=== PATIENT | female | born 1995 | race Caucasian/White ===

== ENCOUNTER 2020-04-01 07:38 | Emergency (ER) | payer SELFPAY ==
[2020-04-01 07:43] VITALS: BP 132/94; PULSE 84; RESP 17; TEMP 36.6; O2SAT 100; BMI 23.0
[2020-04-01 07:44] VITALS: BP 135/95; PULSE 78; RESP 17; O2SAT 100
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
[2020-04-01] MEDS: Ondansetron 4 MG/2 ML Vial IV ×2 (08:22→11:53)
[2020-04-01 08:23] VITALS: BP 114/78; PULSE 74; RESP 18; O2SAT 100
[2020-04-01] MEDS: 0.9% Normal Saline 1,000 ML 999 ML IV (08:24)
[2020-04-01] MEDS: fentaNYL 100 MCG/2 ML Ampul 50 MCG IV (08:25)
[2020-04-01 08:33] LABS: Basophil# 0.02 X10^3/uL; Basophil% 0.3 % (0-1); Eosinophil# 0.03 X10^3/uL; Eosinophils% 0.5 % (0-5); Hematocrit 38.5 % (37-47); Hemoglobin 12.7 g/dL (12.0-15.0); Lymphocyte % 25.5 % (19-41); Mean Corpuscular Hgb 28.6 pg (27.0-32.0); Mean Corpuscular Volume 86.7 fL (81-99); Monocyte# 0.33 X10^3/uL; Monocyte% 5.6 % (0-10); NRBC Flagged by Analyzer 0 % (0-5); Neutrophil # 3.99 X10^3/uL (2.7-7.7); Neutrophil % 67.8 % (47-70); Platelet Count 179 K/mm3 (150-450); RBC Distribution Width CV 12.4 % (11.6-14.6); RBC Distribution Width SD 38.8 fl (35.1-43.9); Red Blood Count 4.44 M/mm3 (4.2-5.4); White Blood Count 5.9 K/mm3 (4.4-11.0)
[2020-04-01 08:45] LABS: Internal QC Validated? YES +Cl - CLEAR BKGD; Pregnancy, Serum, hCG Quali. NEGATIVE Negative
[2020-04-01 08:46] LABS: International Normalized Ratio 1.1; Prothrombin Time (Protime)PT. 13.5 SECONDS (11.7-14.9)
[2020-04-01 08:47] LABS: Partial Thromboplast Time 27.9 Seconds (24.1-36.2)
[2020-04-01 08:50] LABS: AST(SGOT) 18 U/L (15-37); Alanine Aminotransfer ALT/SGPT 21 U/L (13-56); Albumin, Serum 3.8 g/dL (3.2-5.0); Alkaline Phosphatase 70 U/L (45-117); Anion Gap 6 (5-15); BUN 15 mg/dL (7-18); BUN/Creat Ratio 17.8 RATIO (10-20); Calcium,Total 8.9 mg/dL (8.5-10.1); Chloride 107 mmol/L (98-107); Creatinine, Serum 0.84 mg/dL (0.55-1.02); EST Glomerular Filtration Rate 87 mL/min (>60); Est Glom Filt Rate - Afr Amer 105 mL/min (>60); Estimated Creatinine Clearance 84.69 ml/min; Globulin 3.9 g/dL (2.2-4.2); Glucose 92 mg/dL (74-106); Potassium 4.1 mmol/L (3.5-5.1); Protein, Total 7.7 g/dL (6.4-8.2); Sodium Level 138 mmol/L (136-145)
[2020-04-01 09:03] LABS: Alcohol, Blood (Medical)-Serum < 3.0 mg/dL
[2020-04-01] MEDS: Morphine 4 MG/ML Syringe IV ×2 (09:44→11:53)
[2020-04-01 10:35] VITALS: BP 96/56; PULSE 91; RESP 19; O2SAT 96
[2020-04-01 11:09] LABS: Bacteria 0 SEEN /hpf (None Seen); Mucous, Urine 0 SEEN /hpf (<or=2+)
[2020-04-01 11:13] LABS: Color, Urine Straw (Yellow); Glucose, Dipstick Normal (Normal); Ketone-Dipstick Negative (Negative); Leukocyte Esterase-Dipstick Negative /ul (Negative); Nitrite-Dipstick Negative (Negative); Occult Blood-Urine Negative /ul (Negative); Protein-Dipstick Negative (Negative); Urine Bilirubin Dipstick Negative (Negative); Urine Clarity Clear (Clear); Urine Urobilinogen Normal (Normal)
[2020-04-01 11:20] LABS: Red Blood Cells-Urine 0-5 SEEN /hpf (0-5); Squamous Epithelial Cells - UA 0-5 SEEN /hpf (5-10); White Blood Cells 0-5 SEEN /hpf (0-5)
[2020-04-01 11:22] LABS: Amphetamine Urine VISTA NEGATIVE (<1000 ng/mL); Barbiturate Urine VISTA NEGATIVE (< 200 ng/mL); Benzodiazepine Urine VISTA NEGATIVE (< 200 ng/mL); Cocaine Urine VISTA NEGATIVE (< 300 ng/mL); Ecstacy Urine VISTA NEGATIVE (< 500 ng/mL); Methadone Urine VISTA NEGATIVE (< 300 ng/mL); PCP Urine VISTA NEGATIVE (< 25 ng/mL); THC Urine VISTA NEGATIVE (< 50 ng/mL); Vista UDS pH Range 5
[2020-04-01 11:25] VITALS: BP 96/66; PULSE 75; RESP 14; TEMP 36.6; O2SAT 98
--- NOTE | 2020-04-01 11:58 | ED.RN ---
REPORT GIVEN TO [facility], PATIENT STATUS UNCHANGED AT THIS TIME. CARE AND REPORT TO THEM.
== END 2020-04-01 12:08 | disposition short-term general hospital (02) ==
PROVIDERS: Emergency Provider Emergency Medicine
DX: S01.511A Laceration without foreign body of lip, initial encounter (principal); M54.2 Cervicalgia; M54.9 Dorsalgia, unspecified; V43.52XA Car driver injured in collision with other type car in traffic accident, initial encounter
CPT/HCPCS: 12011; 70450; 70486; 71260; 72125; 72128; 72131; 74177; 80048; 80076; 80307; 80320; 81001; 84703; 85025; 85610; 85730; 86850; 86900; 86901; 96361; 96374; 96375; 96376; 99285; J7030; Q9967; A4216; G0480; J2405

== ENCOUNTER 2024-12-04 09:42 | Emergency (ER) | payer OTHER, SELFPAY ==
[2024-12-04 09:44] VITALS: BP 122/79; PULSE 87; RESP 14; TEMP 36.5; O2SAT 100; BMI 24.5
--- NOTE | 2024-12-04 10:03 | EX.ED.DYSGE1 ---
HPI History of Present Illness Chief Complaint: Nausea/Vomiting Narrative Narrative: Patient is a 29-year-old female G2, P1 who presents to the emergency department the chief complaint of nausea vomiting not tolerating oral intake. Patient states that since Saturday she has been unable to keep anything down and states that she is urinating approximately once a day. Patient states that she is currently 6 weeks called her [employer] office and they advised her to come here for the valuation management. She states that she follows with Dr. Blair [facility]. States that she has not had a confirmed medical test.. Patient denies any recent sick contacts. [facility] Medical History (Updated 12/04/24 @ 13:[address] Arvin Stafford, DO) Vitamin deficiency Thyroid disease Hormone deficiency Bone fracture Back problem Depression Anxiety Medical History no medical history Home Medications ?Medication ?Instructions ?Recorded ?Last Taken ?Type NK 09/24/17 Unknown History ondansetron 4 mg disintegrating 4 mg PO Q6H PRN nausea and 12/04/24 Unknown Rx tablet vomiting #20 tabs Allergy/AdvReac Type Severity Reaction Status Date / Time No Known Allergies Allergy Verified 12/04/24 09:43 Family History Unknown Arthritis Cancer Diabetes Heart disease Hypertension High cholesterol Hormone Problems Hyperthyroidism Hypothyroid Kidney disease Thyroid cancer Family History no significant family his Surgical History no surgical history Social History Smoking Status: Never smoker alcohol intake: never substance use type: does not use ROS ROS ED ROS Narrative Constitutional: Denies fevers, chills, headaches, lightness, dizziness Eyes: Denies change in vision double and blurry vision Cardiovascular: Denies chest pain or palpitations Respiratory: Denies coughing wheezing shortness of breath Abdomen: Complains of nausea vomiting as noted above denies abdominal pain diarrhea : Denies painful urination, hematuria, polyuria, denies vaginal discharge Neurological: Denies numbness, discontinuing Musculoskeletal: Denies back pain Skin: Denies rashes or lesions EXAM Physical Exam Narrative Exam Narrative: General: Patient lying in bed rest comfortably did not appear to be in acute distress Head: Atraumatic, normocephalic Eyes: PERRL bilateral, EOMI bilateral, no conjunctival injection noted Neck: Soft, supple, trach midline Cardiovascular: Regular rate and rhythm no murmurs gallops rubs noted Respiratory: Clear to auscultation bilaterally Abdomen: Soft, nondistended, nontender to palpation Extremities: +5/5 strength noted in the bilateral upper and lower extremities, radial pulses +2/4 in the bilateral extremities, no pedal edema exam Neurological: Patient following commands knew that she was at [facility] year is 2024 Skin: Warm, dry, intact no rashes or lesions noted Const Vital Signs: 12/04/24 09:44 12/04/24 12:03 Temperature 97.7 F L Temperature Source Oral Pulse Rate 87 89 Respiratory Rate 14 18 Blood Pressure 122/79 H 126/78 H Blood Pressure Mean 93 94 Pulse Ox 100 98 Oxygen Delivery Method Room Air Room Air MDM MDM MDM Narrative Medical decision making narrative: Patient is a 29-year-old female who presents to the emergency department chief complaint of nausea vomiting the setting of approximately 6 weeks . On the differential diagnose includes Melamin to nausea and vomiting, , COVID, flu. Once workup is obtained reviewed she will be reevaluated. Patient be given IV fluids and Reglan. Patient's urinalysis reviewed and showed 25 leukocyte esterase 0-5 white cells with no bacteria noted, test was negative. I went back in and discussed with the patient and she states that she took 2 at home test that were both positive days apart. She states that she still has not had her period will add on a serum test. This was added on was noted be positive. Patient tested negative for COVID flu RSV. Patient is feeling better she like to go home at this point time. Patient will be given Zofran ODT and will be advised to use this as needed for nausea and vomiting. She states that she already has a appointment scheduled with her [employer] and she is advised to keep this appointment she was advised to get on vitamins as soon as possible. She is encouraged return with worsening symptoms and concerns. She is agreeable this plan as well as significant other bedside all questions were answered she is discharged home in stable condition. Lab Data Labs: Laboratory Results - last 24 hr 12/04/24 12/04/24 11:37 12:27 Serum , Qual POSITIVE Urine Color Yellow Urine Clarity Clear Urine pH 6.0 Ur Specific Adams 1.025 Urine Protein 30 H Urine Glucose (UA) Normal Urine Ketones 150 A* Urine Occult Blood 10 H Urine Nitrite Negative Urine Bilirubin Negative Urine Urobilinogen Normal Ur Leukocyte Esterase 25 H Urine RBC 0-5 SEEN Urine WBC 0-5 SEEN Ur Squamous Epith Cells 5-10 SEEN Urine Bacteria 0 SEEN Urine Mucus 1+ Urine Test Negative Discharge Plan Triage Chief Complaint: Nausea/Vomiting ED Provider: Arvin Stafford Dx/Rx/DC Orders Clinical Impression: Currently , Nausea & vomiting Instructions: 1st Trimester Prescriptions: New ondansetron 4 mg tablet,disintegrating 4 mg PO Q6H PRN (Reason: nausea and vomiting) Qty: 20 0RF No Action NK Primary Care Provider: Care Physician,No Primary Referrals: Care Physician,No Primary [Primary Care Provider] - Activity Restrictions/Additional Instructions: Your serum test was positive. The emergency department start prenatals soon as possible. Use the nausea medication sent to your pharmacy as needed. Return for worsening symptoms or concerns. He tested negative for COVID flu and RSV. Print Language: Georgian Disposition Disposition: Home, Self Care
[2024-12-04] MEDS: 0.9% Normal Saline (1000mL) 1,000 ML 999 ML IV ×2 (10:15→11:36)
[2024-12-04] MEDS: Metoclopramide 10 MG/2 ML Vial IV (10:15)
[2024-12-04 11:45] LABS: Bacteria 0 SEEN /hpf (None Seen)
[2024-12-04 11:48] LABS: Color, Urine Yellow (Yellow); Glucose, Dipstick Normal (Normal); Leukocyte Esterase-Dipstick 25 /ul (Negative); Nitrite-Dipstick Negative (Negative); Occult Blood-Urine 10 /ul (Negative); Protein-Dipstick 30 mg/dl (Negative); Specific Gravity, Urine 1.025 (1.002-1.030); Urine Bilirubin Dipstick Negative (Negative); Urine Clarity Clear (Clear); Urine Urobilinogen Normal (Normal)
[2024-12-04 11:50] LABS: Ketone-Dipstick 150 mg/dl (Negative)
[2024-12-04 11:57] LABS: Squamous Epithelial Cells - UA 5-10 SEEN /hpf (5-10); White Blood Cells 0-5 SEEN /hpf (0-5)
[2024-12-04 11:58] LABS: Red Blood Cells-Urine 0-5 SEEN /hpf (0-5)
[2024-12-04 11:59] LABS: Mucous, Urine 1+ /hpf (<or=2+)
[2024-12-04 12:01] LABS: Internal QC Validated? YES +Cl - CLEAR BKGD; Pregnancy, Urine Negative Negative
[2024-12-04 12:03] VITALS: BP 126/78; PULSE 89; RESP 18; O2SAT 98
[2024-12-04] MEDS: Ondansetron 4 MG/2 ML Vial IV (12:36)
[2024-12-04 13:05] LABS: Internal QC Validated? YES +Cl - CLEAR BKGD
--- NOTE | 2024-12-04 13:05 | CM.ED ---
Social work Reason for referral: no PCP/self-pay Referral source: case find This SW identified patient's lack of PCP and need for resources. This SW entered patient's room, introducing self and role at [facility]. Patient's significant other, Delio, bedside and permission given to speak in front of Delio. Patient confirmed not having a PCP and accepted resources of [facility] Provider Directory and Arbaella Davis information. Patient confirmed not having insurance currently either, though patient states patient is in the process of obtaining insurance. Patient reportedly is waiting on a Medicaid denial letter to provide to the insurance provider since the open enrollment period is over. Patient denied needing further resources at this time. Regina Spring, [employer], [employer]
[2024-12-04 13:06] LABS: Pregnancy, Serum, hCG Quali. POSITIVE Negative
--- NOTE | 2024-12-04 13:07 | ED.RN ---
Positive serum called by lab. Dr. Stafford notified
[2024-12-04 13:28] VITALS: BP 126/78; PULSE 89; RESP 18; TEMP 36.5; O2SAT 98
== END 2024-12-04 13:40 | disposition home or self-care (01) ==
PROVIDERS: Emergency Provider Emergency Medicine; Visit Provider Emergency Medicine
DX: O21.9 Vomiting of pregnancy, unspecified (principal); Z3A.01 Less than 8 weeks gestation of pregnancy
CPT/HCPCS: 81001; 81025; 84703; 87631; 96361; 96374; 96375; 99283; A4216; J2405

== ENCOUNTER 2025-07-26 07:32 | Inpatient (IN) | payer MEDICAID, SELFPAY ==
[2025-07-26] VITALS (60 sets, daily range): BP systolic 70–158; BP diastolic 35–86; PULSE 86–202; RESP 16–20; TEMP 36.1–37.2; O2SAT 78–100; BMI 30.9
--- OUTSIDE RECORDS SUMMARY | 2025-07-26 07:19 | XMS RPT_ITS | CCD ---
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 [place] WBC (Bld) [#/Vol] 14.95 10*3/uL High 3.70-11.00 [facility] Comment on above: Order Comment: Speci men Type: BLOOD SPECIMENOrdering Facility: [facility] Address: [address] [place] [address] Performed By: #### 5 7021-8 ####[facility] LABCLIA [id number] [place] [address] [place] Examination level ultrasound on 06-02-2025 Radiology Study observation (narrative) [facility] CBC W Auto Differential pane l (Bld)on 05-06-2025 Basophils (Bld) [#/Vol] 0.04 10*3/uL Normal <0.11 [facility] Comment on above: Order Comment: Speci men Type: BLOOD SPECIMENOrdering Facility: [facility] Address: [address] [place] [address] Performed By: #### 5 7021-8 ####[facility]IA [id number] [place] [address] [place] Basophils/100 WBC (Bld) 0.3 % Normal [facility] Comment on above: Order Comment: Speci men Type: BLOOD SPECIMENOrdering Facility: [facility] Address: [address] [place] [address] Performed By: #### 5 7021-8 ####[facility] [id number] [place] [address] [place] Differential cell count method Nom (Bld) Auto Normal [facility] Comment on above: Order Comment: Speci men Type: BLOOD SPECIMENOrdering Facility: [facility] Address: [address] [place] [address] Performed By: #### 5 7021-8 ####[facility] MILLWNCLIA [id number] [place] [address] [place] Eosinophils (Bld) [#/Vol] 0.06 10*3/uL Normal <0.46 [facility] Comment on above: Order Comment: Speci men Type: BLOOD SPECIMENOrdering Facility: [facility] Address: [address] [place] [address] Performed By: #### 5 7021-8 ####[facility] [id number] [place] [address] [place] Eosinophils/100 WBC (Bld) 0.4 % Normal [facility] Comment on above: Order Comment: Speci men Type: BLOOD SPECIMENOrdering Facility: [facility] Address: [address] [place] [address] Performed By: #### 5 7021-8 ####[facility] [id number] [place] [address] [place] Erythrocyte distribution width (RBC) [Ratio] 12.9 % Normal 11.5-15.0 [facility] Comment on above: Order Comment: Speci men Type: BLOOD SPECIMENOrdering Facility: [facility] Address: [address] [place] [address] Performed By: #### 5 7021-8 ####[facility]ITALNCLIA [id number] [place] [address] [place] Hematocrit (Bld) [Volume fraction] 30.4 % Low 36.0-46.0 [facility] Comment on above: Order Comment: Speci men Type: BLOOD SPECIMENOrdering Facility: [facility] Address: [address] [place] [address] Performed By: #### 5 7021-8 ####[facility]ITALNCLIA [id number] [place] [address] [place] Hemoglobin (Bld) [Mass/Vol] 9.8 g/dL Low 11.5-15.5 [facility] Comment on above: Order Comment: Speci men Type: BLOOD SPECIMENOrdering Facility: [facility] Address: [address] [place] [address] Performed By: #### 5 7021-8 ####[facility]ITALNCLI [id number] [place] [address] [place] Immature granulocytes (Bld) [#/Vol] 0.20 10*3/uL High <0.10 [facility] Comment on above: Order Comment: Speci men Type: BLOOD SPECIMENOrdering Facility: [facility] Address: [address] [place] [address] Performed By: #### 5 7021-8 ####[facility] JEAN MARIEABIGAIL [id number] [place] [address] [place] Immature granulocytes/100 WBC (Bld) 1.4 % Normal [facility] Comment on above: Order Comment: Speci men Type: BLOOD SPECIMENOrdering Facility: [facility] Address: [address] [place] [address] Performed By: #### 5 7021-8 ####[facility] [id number] [place] [address] [place] Lymphocytes (Bld) [#/Vol] 1.61 10*3/uL Normal 1.00-4.00 [facility] Comment on above: Order Comment: Speci men Type: BLOOD SPECIMENOrdering Facility: [facility] Address: [address] [place] [address] Performed By: #### 5 7021-8 ####[facility] [id number] [place] [address] [place] Lymphocytes/100 WBC (Bld) 11.3 % Normal [facility] Comment on above: Order Comment: Speci men Type: BLOOD SPECIMENOrdering Facility: [facility] Address: [address] [place] [address] Performed By: #### 5 7021-8 ####[facility]ALLI [id number] [place] [address] [place] MCH (RBC) [Entitic mass] 27.0 pg Normal 26.0-34.0 [facility] Comment on above: Order Comment: Speci men Type: BLOOD SPECIMENOrdering Facility: [facility] Address: [address] [place] [address] Performed By: #### 5 7021-8 ####[facility]ITALNCLIA [id number] [place] [address] [place] MCHC (RBC) [Mass/Vol] 32.2 g/dL Normal 30.5-36.0 [facility] Comment on above: Order Comment: Speci men Type: BLOOD SPECIMENOrdering Facility: [facility] Address: [address] [place] [address] Performed By: #### 5 7021-8 ####[facility] [id number] [place] [address] [place] MCV (RBC) [Entitic vol] 83.7 fL Normal 80.0-100.0 [facility] Comment on above: Order Comment: Speci men Type: BLOOD SPECIMENOrdering Facility: [facility] Address: [address] [place] [address] Performed By: #### 5 7021-8 ####[facility] [id number] [place] [address] [place] Monocytes (Bld) [#/Vol] 0.82 10*3/uL Normal <0.87 [facility] Comment on above: Order Comment: Speci men Type: BLOOD SPECIMENOrdering Facility: [facility] Address: [address] [place] [address] Performed By: #### 5 7021-8 ####[facility] [id number] [place] [address] [place] Monocytes/100 WBC (Bld) 5.7 % Normal [facility] Comment on above: Order Comment: Speci men Type: BLOOD SPECIMENOrdering Facility: [facility] Address: [address] [place] [address] Performed By: #### 5 7021-8 ####[facility]ITALNCLIA [id number] [place] [address] [place] Neutrophils (Bld) [#/Vol] 11.56 10*3/uL High 1.45-7.50 [facility] Comment on above: Order Comment: Speci men Type: BLOOD SPECIMENOrdering Facility: [facility] Address: [address] [place] [address] Performed By: #### 5 7021-8 ####[facility] [id number] [place] [address] [place] Neutrophils/100 WBC (Bld) 80.9 % Normal [facility] Comment on above: Order Comment: Speci men Type: BLOOD SPECIMENOrdering Facility: [facility] Address: [address] [place] [address] Performed By: #### 5 7021-8 ####[facility] [id number] [place] [address] [place] Nucleated RBC (Bld) [#/Vol] 10*3/uL Normal <0.01 [facility] Comment on above: Order Comment: Speci men Type: BLOOD SPECIMENOrdering Facility: [facility] Address: [address] [place] [address] Performed By: #### 5 7021-8 ####[facility] [id number] [place] [address] [place] Nucleated RBC/100 WBC (Bld) [Ratio] 0.0 /100 WBC Normal [facility] Comment on above: Order Comment: Speci men Type: BLOOD SPECIMENOrdering Facility: [facility] Address: [address] [place] [address] Performed By: #### 5 7021-8 ####[facility] HOSPITALNCA [id number] [place] [address] [place] Platelet mean volume (Bld) [Entitic vol] 9.7 fL Normal 9.0-12.7 [facility] Comment on above: Order Comment: Speci men Type: BLOOD SPECIMENOrdering Facility: [facility] Address: [address] [place] [address] Performed By: #### 5 7021-8 ####[facility] JAVIDNCMATILDEA [id number] [place] [address] [place] Platelets (Bld) [#/Vol] 270 10*3/uL Normal 150-400 [facility] Comment on above: Order Comment: Speci men Type: BLOOD SPECIMENOrdering Facility: [facility] Address: [address] [place] [address] Performed By: #### 5 7021-8 ####[facility] JAVIDNCLIA [id number] [place] [address] [place] RBC (Bld) [#/Vol] 3.63 10*6/uL Low 3.90-5.20 [facility] Comment on above: Order Comment: Speci men Type: BLOOD SPECIMENOrdering Facility: [facility] Address: [address] [place] [address] Performed By: #### 5 7021-8 ####[facility] JEAN MARIEWESTBROOKNCMATILDEA [id number] [place] [address] [place] WBC (Bld) [#/Vol] 14.29 10*3/uL High 3.70-11.00 [facility] Comment on above: Order Comment: Speci men Type: BLOOD SPECIMENOrdering Facility: [facility] Address: [address] [place] [address] Performed By: #### 5 7021-8 ####[facility]ITALNCLIA [id number] [place] [address] [place] Ferritin SerPl-mCncon 2024 Ferritin [Mass/Vol] 9.7 ng/mL Low 14.7-205.1 [facility] Comment on above: Order Comment: Speci men Type: BLOOD SPECIMENOrdering Facility: [facility] Address: [address] [place], [place] [address] Performed By: #### 5 0190-8, 2275-4 ####[facility] LABCLIA [id number] [place] [address] [place] GESTATIONAL GLUCOSE SCREEN, 1-HOUR, 50 GRAM, NON-FASTINGon 05-06-2025 Glucose [Mass/Vol] 120 mg/dL Normal 74-134 [facility] Comment on above: Order Comment: Speci men Type: BLOOD SPECIMENOrdering Facility: [facility] Address: [address] [place] [address] Result Comment: [facility] Congress of Obstetricians and Gynecologists (Melissa/Elo) guidelines state a gestational diabetes mellitus positive screen is made, in women not previously diagnosed with overt diabetes, when the 1 hr plasma glucose level is equal to or above 140 mg/dL. The [facility] recommends a 135 mg/dL cutoff. Performed By: #### G LTGST ####[facility] [id number] [place] [address] [place] Iron and Iron binding capaci ty panelon 05-06-2025 Iron [Mass/Vol] 35 ug/dL Low 41-186 [facility] Comment on above: Order Comment: Speci men Type: BLOOD SPECIMENOrdering Facility: [facility] Address: [address] [place], [place] [address] Performed By: #### 5 0190-8, 2276-01 ####[facility] LABCLIA [id number] [place] [id number] [place] Iron binding capacity [Mass/Vol] >535 High 232-386 [facility] Comment on above: Order Comment: Speci men Type: BLOOD SPECIMENOrdering Facility: [facility] Address: [address] [place] [address] Performed By: #### 5 0190-8, 2276-01 ####[facility] LABCLIA [id number] [place] [address] [place] Iron/TIBC [Molar ratio] <6.5 Low 15.0-57.0 [facility] Comment on above: Order Comment: Speci men Type: BLOOD SPECIMENOrdering Facility: [facility] Address: [address] [place] [address] Performed By: #### 5 0190-8, 2276-4 ####[facility] LABGIFF[facility] [id number] [place] [address] [place] Reagin and Treponema pallidu m IgG and IgM [Interp]on 05-06-2025 T. pallidum IgG+IgM IA Ql (S) Non-Reactive Normal Nonreactive [facility] Comment on above: Order Comment: Speci men Type: BLOOD SPECIMENOrdering Facility: [facility] Address: [address] [place] [address] Performed By: #### 7 3752-8 ####[facility] [id number] [place] [address] [place] Reagin+T pallidum IgG+IgM Se rPl-Impon 05-06-2025 Reagin and Treponema pallidum IgG and IgM [Interp] Cannot exclude recent Treponemal infection if specimen collected within 7-10 days after appearance of suspect lesions or 2-3 weeks after an exposure. Clinical correlation is required. Normal [facility] Comment on above: Order Comment: Speci men Type: BLOOD SPECIMENOrdering Facility: [facility] Address: [address] [place] [address] Performed By: #### 7 3752-8 ####[facility] [id number] [place] [id number] [place] TSH SerPl-aCncon 05-06-2025 TSH Qn 1.910 m[IU]/L Normal 0.270-4.200 [facility] Comment on above: Order Comment: Speci men Type: BLOOD SPECIMENOrdering Facility: [facility] Address: [address] [place], [place] [address] [id number] Result Comment: If t he patient is , TSH reference range varies by gestational period: First Trimester (weeks 9-12): 0.180-2.990 mIU/L Second Trimester: 0.110-3.980 mIU/L Third Trimester: 0.480-4.710 mIU/L Raul Sahni et al. A Practical Approach for the Verifications and Determination of Site- and Trimester-Specific Reference Intervals for Thyroid Function tests in . Thyroid, 2019:29:3:412-420. Joe Abdi, et al. 2017 Guidelines of the [place] Thyroid Association for the Diagnosis and Management of Thyroid Disease during and the . Thyroid, 2017:27:3:315-389. Performed By: #### 3 016-3 ####[facility] LABCLIA [id number] [facility] [id number] [place] [address] [facility] 03-30-2025 CNPN Telephone (OBGYWM) HILARY HORTA ([id number]) 1995 F Date Time Provider Department 03/30/25 UZMA MILES OBKEVIN During your visit today, we recorded the following information about you: Kathy Pham 03/30/2025 12:21 PM Signed Patient calling in to give Dr. Miles an update about her amoxicillin dose she was give in urgent care. She was prescribed 500mg capsules 3 times daily. She wants to make sure this is okay for the baby. Please review and advise. Kathy Pham March 30, 2025 12:21 PM Delisa Saeed RN 03/30/2025 12:25 PM Signed Called and spoke with patient. Advised Amoxicillin is approved to take during . This was also addressed in phone note from yesterday. Delisa Saeed RN Allergies As of Date: 03/30/2025 (No Known Allergies) Date Reviewed: 01/29/2025 Reviewed by: Lucy Vargas MD - Fully Assessed Reason for Visit: Patient Update [1234] Prescriptions as of 03/30/2025 - ondansetron orally disintegrating (ZOFRAN ODT) 4 mg disintegrating tablet Take 1 tablet by mouth every 8 hours as needed for nausea/vomiting. - aspirin, enteric coated (ECOTRIN LOW STRENGTH) 81 mg EC tablet Take 1 tablet by mouth once daily. - VIT 10-IRON FUM-FOLIC ORAL Take by mouth. - doxylamine succinate (UNISOM, DOXYLAMINE, ORAL) Take by mouth. - pyridoxine HCl, vitamin B6, (PYRIDOXINE ORAL) Take by mouth. Problem List As Of Date 03/30/2025 Noted Resolved Rubella non-immune status [Z78.9] 08/15/2012 Chlamydia trachomatis infection of lower genito*08/18/2012 12/17/2024 Nausea/vomiting in [O21.9] 12/11/2024 Hypothyroidism affecting in first tri*12/17/2024 History of depression [Z87.59, Z86.5*12/17/2024 Constipation during in first trimeste*12/17/2024 Encounter Status:Closed by DELISA SAEED on 03/30/25 [facility] HILARY HORTA ([id number]) 1995 F Date Time Provider Department 03/29/25 ROBYN FORDE During your visit today, we recorded the following information about you: Delisa Saeed RN 03/29/2025 10:54 AM Signed 22w0d Patient states she visited the [facility] in [facility] for an insect bite this morning. She was advised by them to call our office. On her left thigh she has a bulls eye rash. She was feeling fatigue, night sweats, and migraine. Patient never saw a tick on her body. NOW clinic is treating her Lyme's disease with a low dose of Amoxicillin THREE TIMES A DAY x 2 weeks. Patient asking what the next steps are. Asking about blood work. Next OB visit is 04/08/25. KAIT Todd Jessica, APRN.CNM 03/29/2025 11:50 AM Signed Recommend management with primary care for follow up. Ok to continue treatment regimen. Can also refer to infectious disease if she desires. Thanks, Robyn Forde APRN.Lv Cruz RN 03/29/2025 12:23 PM Signed Pt notified. Pt states having active movement consistently-reviewed importance of doing kick counts, staying hydrated, monitoring for fevers, worsening rash/redness, worsening fatigue, worsening night sweats, or headaches/migraines not relieved by Tylenol 1,000mg every 6 hours PRN to contact our office/ PCP office immediately. Pt voiced understanding. Upon looking to see when Pt's next OB appt was-saw no upcoming appt, so called Pt back and Pt states she just got approved for an insurance and has a new card and needs to schedule an appointment. Transferred Pt to [facility] to get insurance information updated and to get OB appt scheduled. Lv Del Castillo RN Allergies As of Date: 03/29/2025 (No Known Allergies) Date Reviewed: 01/29/2025 Reviewed by: Lucy Vargas MD - Fully Assessed Reason for Visit: OB Lyme's Disease [Other] Prescriptions as of 03/29/2025 - ondansetron orally disintegrating (ZOFRAN ODT) 4 mg disintegrating tablet Take 1 tablet by mouth every 8 hours as needed for nausea/vomiting. - aspirin, enteric coated (ECOTRIN LOW STRENGTH) 81 mg EC tablet Take 1 tablet by mouth once daily. - VIT 10-IRON FUM-FOLIC ORAL Take by mouth. - doxylamine succinate (UNISOM, DOXYLAMINE, ORAL) Take by mouth. - pyridoxine HCl, vitamin B6, (PYRIDOXINE ORAL) Take by mouth. Problem List As Of Date 03/29/2025 Noted Resolved Rubella non-immune status [Z78.9] 08/15/2012 Chlamydia trachomatis infection of lower genito*08/18/2012 12/17/2024 Nausea/vomiting in [O21.9] 12/11/2024 Hypothyroidism affecting in first tri*12/17/2024 History of depression [Z87.59, Z86.5*12/17/2024 Constipation during in first trimeste*12/17/2024 Encounter Status:Closed by LV DEL CASTILLO on 03/29/25 [facility] Office Visit Reporton 2024 Office Visit Report [facility] [address] [place] [address] OFFICE VISIT Date of Service: 03/29/25 MR#: [id number] Acct: [id number] Patient: HILARY HORTA Rep #: [id number] : 1995 Provider: SADIE Millard Age/Sex: 29/F Location: [facility] Status: Signed Intake Vital Signs 12/04/24 09:44 03/29/25 09:59 Height 1.6 m 1.6 m Weight: 68.946 kg BMI 26.9 BP 109/73 Blood Pressure Location Lt brachial Position Sitting Pulse 94 Pulse Source Monitor Temp 98.4 F Temp Source Temporal Pulse Oximetry (%) 100 Oxygen Delivery Method room air Intake Visit Reasons: TICK BITE/INNER THIGH/L LEG Chief Complaint: tick bite rash Allergies No Known Allergies Allergy (Verified 03/29/25 10:00) Medications ???Medication ???Instructions ???Recorded ???Confirmed ???Type ondansetron 4 mg disintegrating 4 mg PO Q6H PRN nausea and 5 03/29/25 Rx tablet vomiting #20 tabs amoxicillin 500 mg capsule 500 mg PO TID 14 days #42 caps 03/29/25 Rx PFSH Medical History (Updated 03/29/25 @ 10:16 by Otoniel NOEL, PA) Vitamin deficiency Thyroid disease Hormone deficiency Bone fracture Back problem Depression Anxiety Family History Unknown Arthritis Cancer Diabetes Heart disease Hypertension High cholesterol Hormone Problems Hyperthyroidism Hypothyroid Kidney disease Thyroid cancer Social History Smoking Status: Never smoker alcohol intake: never substance use type: does not use HPI HPI Chief Complaint: tick bite rash Details: HILARY HORTA, is a 29 F who is currently 6 months who presents to the office today for tick bite rash. She first noticed this a few days ago. She never noticed a tick embedded in her skin. She however developed a bullseye lesion on her left inner thigh. Along with this she has headache fatigue and fever. She is worried about lyme disease. She has no joint pain. She has no other areas of bullseye lesions. ROS Const Constitutional: Positive for fever(s) and headache(s); No chills or fatigue ENT ENT: Positive for headache(s) Skin Skin: Positive for redness, lesions and itchy eyes Neuro Neurology: Positive for headache(s) Endo Endocrine: No fatigue Aller/Imm Allergy/Immunologic: Positive for itchy eyes Exam Const General: cooperative, healthy appearing, comfortable, no acute distress, well developed and well groomed Nutritional Appearance: average body habitus and well nourished Orientation: alert, awake and oriented x3 HENMT Head: normocephalic and atraumatic Resp Effort Inspection: normal respiratory effort, able to speak in complete sentences, symmetric chest movement and no cough Auscultation: Bilateral: Clear to Auscultation Cardio Rate: regular rate Rhythm: regular rhythm Heart Sounds: no murmurs Skin Other: bullseye lesion left inner thigh Coding Level of Care Code Off vis,new,level 3 Diagnoses Erythema migrans (Lyme disease) A69.20 Assessment and Plan Assessment and Plan (1) Erythema migrans (Lyme disease): Status: Chronic Plan: Bullseye lesion left inner thigh, with symptoms of headache, fever, and fatigue. complicated by 6 month . she never specifically noticed a tick embedded however with her presentation will initiate treatment for lyme. since she is we will avoid doxy. start amox 500 tid x 14 days per uptodate guidelines. no chronic medical issues/medication use Medications: New amoxicillin 500 mg PO TID 14 days 42 caps 0RF 03/29/25 1018 Date Otoniel Claire Signature: Date (if applicable) CC: Normal [facility] [place] Examination level ultrasound on 03-12-2025 Indication Standard anatomic survey Impression The patient is referred for a standard anatomic survey. - Single, live, intrauterine . - biometry is consistent with the established gestational age. - No malformations were visualized on a complete standard anatomic survey. - The amniotic fluid volume is normal amount. - The placenta is posterior, fundal. - The Transabdominal cervical length measures 42.5 mm with no evidence of funneling or other dynamic changes. - Not all structural malformations can be detected by ultrasound examination. Recommendations Additional follow-up as clinically indicated. Maternal Assessment Height 163 cm Height (ft) 5 ft Height (in) 4 in Physical Exam Initial weight (lb) 135 lb Initial BMI 23.17 kg/m Maternal assessment other: 2 Para 1 REMOTE READ Method Transabdominal ultrasound examination. View: Adequate visualization [place] . Number of fetuses: 1 Dating LMP on: 10/26/2024 GA by LMP 19 w + 4 d SELMA by LMP: 08/02/2025 GA by prior assessment 19 w + 4 d SELMA by prior assessment: 08/02/2025 Ultrasound examination on: 03/12/2025 GA by U/S based upon: AC, BPD, Femur, HC GA by U/S 21 w + 0 d SELMA by U/S: 07/23/2025 Assigned: based on stated SELMA, selected on 03/12/2025 Assigned GA 19 w + 4 d Assigned SELMA: 08/02/2025 General Evaluation Cardiac activity present. FHR 149 bpm. movements: present. Presentation: cephalic Placenta: Placental site: posterior, fundal Umbilical cord: Cord vessels: 3 vessel cord Amniotic fluid: Amount of AF: normal amount. MVP 6.2 cm Growth Overview Exam date GA BPD (mm) HC (mm) AC (mm) FL (mm) HL (mm) EFW (g) 03/12/2025 19w 4d 48.7 90% 184.2 84% 161.3 90% 34.5 94% 32.6 92% 392 98% Biometry Standard BPD 48.7 mm 20w 5d 90% Hadlock OFD 65.7 mm 20w 5d 99% Nicolaides HC 184.2 mm 20w 5d 84% Mouna Cerebellum tr 21.7 mm 20w 3d 91% Hill Nuchal fold 4.3 mm AC 161.3 mm 21w 2d 90% Hadlock Femur 34.5 mm 21w 0d 94% Mouna Humerus 32.6 mm 21w 0d 92% Mouna EFW 392 g 20w 6d 98% Hadlock EFW (lb) 0 lb EFW (oz) 14 oz EFW by: Hadlock (HC-AC-FL) Extended [employer]ender 6.3 mm CM 4.0 mm 21% Nicolaides Extremities / Bony Struc FL / HC 0.19 73% Hadlock Other Structures FHR 149 bpm Anatomy Cranium: normal Lateral ventricles: normal Choroid plexus: normal Midline falx: normal Cavum septi pellucidi: normal Cerebellum: normal Cisterna magna: normal Head / Neck Vermis: Normal but not required for a standard anatomy exam Neck: Normal but not required for a standard anatomy exam Nuchal fold: Normal but not required for a standard anatomy exam Lips: normal Profile: Normal but not required for a standard anatomy exam Nose: Normal but not required for a standard anatomy exam Face Maxilla: Normal but not required for a standard anatomy exam Mandible: Normal but not required for a standard anatomy exam Orbits: Normal but not required for a standard anatomy exam Lens: Normal but not required for a standard anatomy exam 4-chamber view: normal RVOT view: normal LVOT view: normal 3-vessel view: normal 1-jzvcof-pspkbkq view: normal Heart / Thorax Situs: situs solitus (normal) Aortic arch view: Normal but not required for a standard anatomy exam SVC: Normal but not required for a standard anatomy exam IVC: Normal but not required for a standard anatomy exam Cardiac axis: normal Rt lung: Normal but not required for a standard anatomy exam Lt lung: Normal but not required for a standard anatomy exam Diaphragm: normal Cord insertion: normal Stomach: normal Kidneys: normal Bladder: normal Genitals: normal Abdomen Abdom. wall: normal Cervical spine: normal Thoracic spine: normal Lumbar spine: normal Sacral spine: normal Arms: normal Legs: normal Rt upper arm: normal Rt forearm: normal Rt hand: normal Rt fingers: normal Lt upper arm: normal Lt forearm: normal Lt hand: normal Lt fingers: normal Rt upper leg: normal Rt lower leg: normal Rt foot: normal Lt upper leg: normal Lt lower leg: normal Lt foot: normal sex: male Wants to know sex: yes Maternal Structures Uterus / Cervix Uterus: Visualized Cervix: Visualized Approach: Transabdominal Cervical length 42.5 mm Other: Patient declined transvaginal ultrasound for cervical length. Ovaries / Tubes / Adnexa Rt ovary: Visualized Lt ovary: Visualized Performed By: Ananya Alvarez RDMS, RVT Read By: Gabbie Wilcox M.D. MATERNAL MEDICINE [facility] Radiology Study observation (narrative) [facility] CBC W Auto Differential pane l (Bld)on 01-05-2025 Basophils (Bld) [#/Vol] 0.04 10*3/uL Normal <0.11 [facility] Comment on above: Order Comment: Speci men Type: BLOOD SPECIMENOrdering Facility: [facility] Address: [address] [place] [address] Performed By: #### 5 7021-8 ####[facility] [id number] [place] [address] [place] Basophils/100 WBC (Bld) 0.5 % Normal [facility] Comment on above: Order Comment: Speci men Type: BLOOD SPECIMENOrdering Facility: [facility] Address: [address] [place] [address] Performed By: #### 5 7021-8 ####[facility] [id number] [place] [address] [place] Differential cell count method Nom (Bld) Auto Normal [facility] Comment on above: Order Comment: Speci men Type: BLOOD SPECIMENOrdering Facility: [facility] Address: [address] [place] [address] Performed By: #### 5 7021-8 ####[facility] MILLWNCLIA [id number] [place] [address] [place] Eosinophils (Bld) [#/Vol] 0.03 10*3/uL Normal <0.46 [facility] Comment on above: Order Comment: Speci men Type: BLOOD SPECIMENOrdering Facility: [facility] Address: [address] [place] [address] Performed By: #### 5 7021-8 ####[facility]ITALADDYLIA [id number] [place] [address] [place] Eosinophils/100 WBC (Bld) 0.4 % Normal [facility] Comment on above: Order Comment: Speci men Type: BLOOD SPECIMENOrdering Facility: [facility] Address: [address] [place] [address] Performed By: #### 5 7021-8 ####[facility] [id number] [place] [address] [place] Erythrocyte distribution width (RBC) [Ratio] 13.3 % Normal 11.5-15.0 [facility] Comment on above: Order Comment: Speci men Type: BLOOD SPECIMENOrdering Facility: [facility] Address: [address] [place] [address] Performed By: #### 5 7021-8 ####[facility] [id number] [place] [address] [place] Hematocrit (Bld) [Volume fraction] 37.5 % Normal 36.0-46.0 [facility] Comment on above: Order Comment: Speci men Type: BLOOD SPECIMENOrdering Facility: [facility] Address: [address] [place] [address] Performed By: #### 5 7021-8 ####[facility] H[facility]ITALNCLIA [id number] [place] [address] [place] Hemoglobin (Bld) [Mass/Vol] 12.5 g/dL Normal 11.5-15.5 [facility] Comment on above: Order Comment: Speci men Type: BLOOD SPECIMENOrdering Facility: [facility] Address: [address] [place] [address] Performed By: #### 5 7021-8 ####[facility] [id number] [place] [address] [place] Immature granulocytes (Bld) [#/Vol] 0.04 10*3/uL Normal <0.10 [facility] Comment on above: Order Comment: Speci men Type: BLOOD SPECIMENOrdering Facility: [facility] Address: [address] [place] [address] Performed By: #### 5 7021-8 ####[facility] [id number] [place] [address] [place] Immature granulocytes/100 WBC (Bld) 0.5 % Normal [facility] Comment on above: Order Comment: Speci men Type: BLOOD SPECIMENOrdering Facility: [facility] Address: [address] [place] [address] Performed By: #### 5 7021-8 ####[facility] [id number] [place] [address] [place] Lymphocytes (Bld) [#/Vol] 1.54 10*3/uL Normal 1.00-4.00 [facility] Comment on above: Order Comment: Speci men Type: BLOOD SPECIMENOrdering Facility: [facility] Address: [address] [place] [address] Performed By: #### 5 7021-8 ####[facility] [id number] [place] [address] [place] Lymphocytes/100 WBC (Bld) 19.2 % Normal [facility] Comment on above: Order Comment: Speci men Type: BLOOD SPECIMENOrdering Facility: [facility] Address: [address] [place] [address] Performed By: #### 5 7021-8 ####[facility] JEAN MARIEWESTBROOKANTELMO [id number] [address] MCH (RBC) [Entitic mass] 27.7 pg Normal 26.0-34.0 [facility] Comment on above: Order Comment: Speci men Type: BLOOD SPECIMENOrdering Facility: [facility] Address: [address] [place] [address] Performed By: #### 5 7021-8 ####[facility] [id number] [address] [place] [facility] MCHC (RBC) [Mass/Vol] 33.3 g/dL Normal 30.5-36.0 [facility] Comment on above: Order Comment: Speci men Type: BLOOD SPECIMENOrdering Facility: [facility] Address: [address] [place] [address] Performed By: #### 5 7021-8 ####[facility] [id number] [address] [place] [facility] MCV (RBC) [Entitic vol] 83.0 fL Normal 80.0-100.0 [facility] Comment on above: Order Comment: Speci men Type: BLOOD SPECIMENOrdering Facility: [facility] Address: [address] [place] [address] Performed By: #### 5 7021-8 ####[facility] [id number] [place] [address] [place] [facility] [place] Monocytes (Bld) [#/Vol] 0.42 10*3/uL Normal <0.87 [facility] Comment on above: Order Comment: Speci men Type: BLOOD SPECIMENOrdering Facility: [facility] Address: [address] [place] [address] Performed By: #### 5 7021-8 ####[facility] PENSACOLAWNCLIA [id number] [place] [address] [place] Monocytes/100 WBC (Bld) 5.2 % Normal [facility] Comment on above: Order Comment: Speci men Type: BLOOD SPECIMENOrdering Facility: [facility] Address: [address] [place] [address] Performed By: #### 5 7021-8 ####[facility] [id number] [place] [address] [place] Neutrophils (Bld) [#/Vol] 5.94 10*3/uL Normal 1.45-7.50 [facility] Comment on above: Order Comment: Speci men Type: BLOOD SPECIMENOrdering Facility: [facility] Address: [address] [place] [address] Performed By: #### 5 7021-8 ####[facility] [id number] [place] [address] [place] Neutrophils/100 WBC (Bld) 74.2 % Normal [facility] Comment on above: Order Comment: Speci men Type: BLOOD SPECIMENOrdering Facility: [facility] Address: [address] [place] [address] Performed By: #### 5 7021-8 ####[facility] [id number] [place] [address] [place] Nucleated RBC (Bld) [#/Vol] 10*3/uL Normal <0.01 [facility] Comment on above: Order Comment: Speci men Type: BLOOD SPECIMENOrdering Facility: [facility] Address: [address] [place] [address] Performed By: #### 5 7021-8 ####[facility]ITALNCLIA [id number] [place] [address] [place] Nucleated RBC/100 WBC (Bld) [Ratio] 0.0 /100 WBC Normal [facility] Comment on above: Order Comment: Speci men Type: BLOOD SPECIMENOrdering Facility: [facility] Address: [address] [place] [address] Performed By: #### 5 7021-8 ####[facility] [id number] [place] [address] [place] Platelet mean volume (Bld) [Entitic vol] 10.4 fL Normal 9.0-12.7 [facility] Comment on above: Order Comment: Speci men Type: BLOOD SPECIMENOrdering Facility: [facility] Address: [address] [place] [address] Performed By: #### 5 7021-8 ####[facility] [id number] [place] [address] [place] Platelets (Bld) [#/Vol] 235 10*3/uL Normal 150-400 [facility] Comment on above: Order Comment: Speci men Type: BLOOD SPECIMENOrdering Facility: [facility] Address: [address] [place] [address] Performed By: #### 5 7021-8 ####[facility] [id number] [place] [address] [place] RBC (Bld) [#/Vol] 4.52 10*6/uL Normal 3.90-5.20 [facility] Comment on above: Order Comment: Speci men Type: BLOOD SPECIMENOrdering Facility: [facility] Address: [address] [place] [address] Performed By: #### 5 7021-8 ####[facility] HOS[facility]ITALNCLI [id number] [place] [address] [place] WBC (Bld) [#/Vol] 8.01 10*3/uL Normal 3.70-11.00 [facility] Comment on above: Order Comment: Speci men Type: BLOOD SPECIMENOrdering Facility: [facility] Address: [address] [place] [address] Performed By: #### 5 7021-8 ####[facility] NAMRATA CALDERON [id number] [place] [address] [place] HBV surface Ag Ser Qlon 04-0 HBV surface Ag Ql (S) Negative Normal Negative [facility] Comment on above: Order Comment: Speci men Type: BLOOD SPECIMENOrdering Facility: [facility] Address: [address] [place] [address] Performed By: #### 3 1201-7, 5195-3, 62939-5 ####[facility] LABCLIA [id number] [place] [address] [place] HCV Ab Ser Qlon 01-05-2025 HCV Ab Ql (S) Negative Normal Negative [facility] Comment on above: Order Comment: Speci men Type: BLOOD SPECIMENOrdering Facility: [facility] Address: [address] [place] [address] Result Comment: The result suggests no evidence of infection with Hepatitis C virus. Should recent infection be suspected, repeat testing may be considered 4-6 weeks after this draw. Performed By: #### 1 6128-1 ####[facility] LABCLIA [id number] [place] [address] [place] HIV 1+2 Ab IA Qlon HIV 1 and 2 Ab IA.rapid Nom (S/P/Bld) Normal [facility] Comment on above: Order Comment: Speci men Type: BLOOD SPECIMENOrdering Facility: [facility] Address: [address] [place] [address] Result Comment: Test not indicated. Performed By: #### 3 1201-7, 5195-3, 58146-1 ####[facility] LABCLIA [id number] [place] [address] [place] HIV 1+2 Ab+HIV1 p24 Ag IA Ql Non-Reactive Normal Nonreactive [facility] Comment on above: Order Comment: Speci men Type: BLOOD SPECIMENOrdering Facility: [facility] Address: [address] [place] [address] Performed By: #### 3 1201-7, 5195-3, 19465-2 ####[facility] LABCLIA [id number] [place] [address] [place] HIV immunoassay testing algorithm interpretation (S/P/Bld) [Interp] Normal [facility] Comment on above: Order Comment: Speci men Type: BLOOD SPECIMENOrdering Facility: [facility] Address: [address] [place] [address] Result Comment: No e vidence of HIV-1 or HIV-2 infection. Should recent infection be suspected, repeat testing may be considered 2-3 weeks after this draw. [place] Rev. Code 3701.243(E): This information has been disclosed to you from confidential records protected from disclosure by state law. ???You shall make no further disclosure of this information without the specific, written, and informed release of the individual to whom it pertains or as otherwise permitted by state law. A general authorization for the release of medical or other information is not sufficient for the purpose of the release of HIV test results or diagnoses. Performed By: #### 3 1201-7, 5195-3, 76873-3 ####[facility] LABCLIA [id number] [place] [address] [place] HbA1c (Bld)on 01-05-2025 Average glucose Estimated from glycated hemoglobin (Bld) [Mass/Vol] 100 mg/dL Normal [facility] Comment on above: Order Comment: Speci men Type: BLOOD SPECIMENOrdering Facility: [facility] Address: [address] [place] [address] Result Comment: eAG: (Estimated average glucose) is a calculated value from HgbA1c and is data entry representative of the average blood glucose level in the last 2-3 month period. Performed By: #### 5 5454-3 ####[facility] LABIA [id number] [place] [address] [place] HbA1c (Bld) [Mass fraction] 5.1 % Normal 4.3-5.6 [facility] Comment on above: Order Comment: Andres elina Type: BLOOD SPECIMENOrdering Facility: [facility] Address: [address] [place] [address] Result Comment: [place] Diabetes Association guidelines indicate that patients with HgbA1c in the range 5.7-6.4% are at increased risk for development of diabetes, and intervention by lifestyle modification may be beneficial. HgbA1c greater or equal to 6.5% is considered diagnostic of diabetes. Performed By: #### 5 5454-3 ####[facility] LABIA [id number] [address] [place] RUBELLA IGG ANTIBODYon 01-05 RUBELLA IGG AB, QUAL Positive Normal Positive [facility] Comment on above: Order Comment: Andres [facility] Type: BLOOD SPECIMENOrdering Facility: [facility] Address: [address] [place] [address] Result Comment: The result suggests recent or past exposure to Rubella virus or history of Rubella vaccination. Positive result may also be seen due to presence of passively-transferred antibodies. Please correlate with patient's history. Performed By: #### R UBIGG ####[facility]ITAL[facility] [id number] [place] [address] [place] Reagin and Treponema pallidu m IgG and IgM [Interp]on 01-05-2025 T. pallidum IgG+IgM IA Ql (S) Non-Reactive Normal Nonreactive [facility] Comment on above: Order Comment: Andres [facility] Type: BLOOD SPECIMENOrdering Facility: [facility] Address: [address] [place] [address] Performed By: #### 3 1201-7, 5195-3, 18781-0 ####[facility] LABIA [id number] [place] [address] [place] Reagin+T pallidum IgG+IgM Se rPl-Impon 01-05-2025 Reagin and Treponema pallidum IgG and IgM [Interp] Cannot exclude recent Treponemal infection if specimen collected within 7-10 days after appearance of suspect lesions or 2-3 weeks after an exposure. Clinical correlation is required. Normal [facility] Comment on above: Order Comment: Speci men Type: BLOOD SPECIMENOrdering Facility: [facility] Address: [address] [place] [address] Performed By: #### 3 1201-7, 5195-3, 89356-1 ####[facility] [id number] [place] [address] [place] T4 Free SerPl-mCncon 025 Free T4 [Mass/Vol] 1.2 ng/dL Normal 0.9-1.7 [facility] Comment on above: Order Comment: Speci men Type: BLOOD SPECIMENOrdering Facility: [facility] Address: [address] [place] [address] Performed By: #### 3 024-7, 3016-3 ####[facility] [id number] [place] [address] [place] TSH SerPl-aCncon 01-05-2025 TSH Qn 2.490 m[IU]/L Normal 0.270-4.200 [facility] Comment on above: Order Comment: Speci men Type: BLOOD SPECIMENOrdering Facility: [facility] Address: [address] [place] [address] Result Comment: If t he patient is , TSH reference range varies by gestational period: First Trimester (weeks 9-12): 0.180-2.990 mIU/L Second Trimester: 0.110-3.980 mIU/L Third Trimester: 0.480-4.710 mIU/L Raul Sahni et al. A Practical Approach for the Verifications and Determination of Site- and Trimester-Specific Reference Intervals for Thyroid Function tests in . Thyroid, 2019:29:3:412-420. Joe E, et al. 2017 Guidelines of the [place] Thyroid Association for the Diagnosis and Management of Thyroid Disease during and the . Thyroid, 2017:27:3:315-389. Performed By: #### 3 024-7, 3016-3 ####[facility] LABCLIA [id number] [place] [address] [place] TYPE + SCREEN PRENATALon ABO O Normal [facility] Comment on above: Order Comment: Speci men Type: BLOOD SPECIMENOrdering Facility: [facility] Address: [address] [place] [address] Performed By: #### T SPN ####[facility] BLOOD BANKCLIA [id number] [place] [address] [place] Rh Nom (Bld) Positive Normal [facility] Comment on above: Order Comment: Speci men Type: BLOOD SPECIMENOrdering Facility: [facility] Address: [address] [place] [address] Performed By: #### T SPN ####[facility] BLOOD BANKCLIA [id number] [place] [address] [place] TYPE AND SCREEN EXPIRATION 01/08/2025 23:59 Normal [facility] Comment on above: Order Comment: Speci men Type: BLOOD SPECIMENOrdering Facility: [facility] Address: [address] [place] [address] Performed By: #### T SPN ####[facility] BLOOD BANKCLIA [id number] [place] [address] [place] Bacteria Ur Culton 5 Bacteria identified Cx Nom (U) ORGANISM ID: 1 10,000 -<50,000 CFU/ml Mixed microbiota Insignificant colony count. No further workup. Normal [facility] Comment on above: Performed By: #### 6 30-4 ####[facility] LABCLIA [id number] [address] [place] [address] [place] C. trachomatis+N. gonorrhoea e DNA KYLIE+probe Ql (Unsp spec)on 12-17-2024 C. trachomatis rRNA KYLIE+probe Ql (Unsp spec) Not detected Normal Not detected [facility] Comment on above: Order Comment: Speci men Type: SWABOrdering Facility: [facility] Address: [address] [place] [address] Performed By: #### T RVAMP, 86936-9 ####[facility] LABCLIA [id number] [address] [place] N. gonorrhoeae rRNA KYLIE+probe Ql (Unsp spec) Not detected Normal Not detected [facility] Comment on above: Order Comment: Speci men Type: SWABOrdering Facility: [facility] Address: [address] [place] [address] Performed By: #### T RVAMP, 57888-6 ####[facility] LABIA [id number] [address] [place] HIGH RISK HUMAN PAPILLOMA DEBBIE (HPV), PCR FOR DETECTION AND GENOTYPINGon 12-17-2024 HPV 16 Ag Ql (Unsp spec) Not detected Normal Not detected [facility] Comment on above: Order Comment: Speci men Type: FLUID SPECIMENOrdering Facility: [facility] Address: [address] [place] [address] Performed By: #### H PVHRT ####[facility] LABCLIA [id number] [place] [address] [place] HPV 18 Ag Ql (Unsp spec) Not detected Normal Not detected [facility] Comment on above: Order Comment: Speci men Type: FLUID SPECIMENOrdering Facility: [facility] Address: [address] [place] [address] Performed By: #### H PVHRT ####[facility] LABCLIA [id number] [place] [address] [place] HPV 31+33+35+39+45+51+52+5 6+58+59+66+68 DNA KYLIE+probe Ql (Cvx) Not detected Normal Not detected [facility] Comment on above: Order Comment: Speci men Type: FLUID SPECIMENOrdering Facility: [facility] Address: [address] [place] [address] Result Comment: High Risk HPV Other Type includes HPV types 31, 33, 35, 39, 45, 51, 52, 56, 58, 59, 66 and 68. Performed By: #### H PVHRT ####[facility] LABCLIA [id number] [place] [address] [place] PAP TESTon 12-17-2024 ADEQUACY Normal [facility] Comment on above: Order Comment: Speci men Type: FLUID SPECIMENOrdering Facility: [facility] Address: [address] [place] [address] Result Comment: Sati sfactory for interpretation. No endocervical component Performed By: #### L [id number] ####[facility] LABCLIA [id number] [place] [address] [place] CASE REPORT Normal [facility] Comment on above: Order Comment: Speci men Type: FLUID SPECIMENOrdering Facility: [facility] Address: [address] [place] [address] Result Comment: Gyne cologic Cytology Report Case: [id number] Authorizing Provider: Huseyin Orourke APRN.MANAGER OF SECURITY Collected: 12/17/2024 11:54 AM Ordering Location: OB/Gynecology Received: 12/17/2024 03:56 PM First Screen: Eva Lares, CT, ASCP Specimen: Pap Test, ThinPrep, Cervix Performed By: #### L [id number] ####[facility] LABCLIA [id number] [place] [id number] [place] CLINICAL HISTORY, CYTOLOGY, HOUSING PROJECT MANAGER (Indicate Weeks) Normal [facility] Comment on above: Order Comment: Speci men Type: FLUID SPECIMENOrdering Facility: [facility] Address: [address] [place] [address] Performed By: #### L [id number] ####[facility] LABCLIA [id number] [place] [address] [place] CYTOLOGY PAP OTHER INTERPRETATION Normal [facility] Comment on above: Order Comment: Speci men Type: FLUID SPECIMENOrdering Facility: [facility] Address: [address] [place] [address] Result Comment: Margie al organisms morphologically consistent with Maddison species. Predominance of coccobacilli consistent with shift in vaginal linsey. Performed By: #### L [id number] ####[facility] LABCLIA [id number] [place] [address] [place] FINAL PERFORMING LAB Normal [facility] Comment on above: Order Comment: Speci men Type: FLUID SPECIMENOrdering Facility: [facility] Address: [address] [place] [address] Result Comment: Tech nical component, rn ortho screening performed at [facility], [address] [place], [place] [id number] CLIA# [id number] Diagnostic interpretation performed at [facility], [address] [place], [place] [address] CLIA# [id number] Web Press Jogger: Liam Marie M.D. Performed By: #### L [id number] ####[facility] LABCLIA [id number] [place] [address] [place] INTERPRETATION, CYTOLOGY, HOUSING PROJECT MANAGER Normal [facility] Comment on above: Order Comment: Speci men Type: FLUID SPECIMENOrdering Facility: [facility] Address: [address] [place] [address] Result Comment: Nega tive for intraepithelial lesion or malignancy. at 1036 EDT Performed By: #### L [id number] ####[facility] LABCLIA [id number] [place] [id number] [place] LMP 10/26/2024 Normal [facility] Comment on above: Order Comment: Speci men Type: FLUID SPECIMENOrdering Facility: [facility] Address: [address] [place] [address] Performed By: #### L [id number] ####[facility] LABCLIA [id number] [address] [place] [address] [place] PAP DISCLAIMER COMMENT The Pap Smear is a screening test for cervical cancer. False negative results occur with all screening tests, emphasizing the need for rescreening at recommended intervals, and clinical correlation. Normal [facility] Comment on above: Order Comment: Speci men Type: FLUID SPECIMENOrdering Facility: [facility] Address: [address] [place] [address] Performed By: #### L [id number] ####[facility] LABCLIA [id number] [address] [address] [place] PAP PUNCH MACHINE HAND COMMENT This specimen has been analyzed by the ThinPrep Imaging System, an automated imaging and review system, which assists the laboratory in evaluating cells on ThinPrep Pap tests. Following automated imaging, selected kraus from every slide are reviewed by a rn ortho. Normal [facility] Comment on above: Order Comment: Speci men Type: FLUID SPECIMENOrdering Facility: [facility] Address: [address] [place] [address] Performed By: #### L [id number] ####[facility] LABCLIA [id number] [address] [address] [place] POC CREDIT ADMINISTRATION MANAGER ULTRASOUNDon 12-18-19 25 Indication Viability; confirm cardiac activity Impression Single intrauterine gestational sac, CRL is appropriate for clinical dates, corresponding to SELMA 08/02/2025 cardiac activity is visualized Recommendations Follow up for 1st Trimester Anatomy with Nuchal Translucency as clinically indicated if desired. Method Transabdominal ultrasound examination, Transvaginal ultrasound examination. View: Adequate visualization [place]bol[place]o . Number of embryos: 1 Dating LMP on: 10/26/2024 GA by LMP 7 w + 3 d SELMA by LMP: 08/02/2025 Ultrasound examination on: 12/17/2024 GA by U/S based upon: CRL GA by U/S 8 w + 1 d SELMA by U/S: 07/28/2025 Assigned: based on the LMP, selected on 12/17/2024 Assigned GA 7 w + 3 d Assigned SELMA: 08/02/2025 Biometry Standard FHR 159 bpm CRL 17.4 mm 8w 1d >99% Hadlock Assessment Gestational sac: visualized Location: intrauterine Yolk sac: visualized Embryo: visualized CRL 17.4 mm 8w 1d >99% Hadlock Cardiac activity: present FHR 159 bpm General Evaluation Cardiac activity present. FHR 159 bpm Performed By: Huseyin Orourke NP Read By: Huseyin Orourke NP MATERNAL MEDICINE [facility] Radiology Study observation (narrative) [facility] TRICHOMONAS VAGINALIS NAATon 12-17-2024 T. vaginalis DNA KYLIE+probe Ql (Unsp spec) Not detected Normal Not detected [facility] Comment on above: Order Comment: Speci men Type: SWABOrdering Facility: [facility] Address: [address] [place] [address] Performed By: #### T RVAMP, 28908-3 ####[facility] LABCLIA [id number] [address] [facility] [place] 12-15-2024 CNPN Telephone (OBGYWM) HILARY HORTA ([id number]) 1995 F Date Time Provider Department 12/15/24 HUSEYIN OROURKE During your visit today, we recorded the following information about you: Aravind Harrison RN 12/15/2024 12:52 PM Signed Left message for patient to return phone call to complete nurse intake questions for her upcoming appointment. Patient has an appointment with Huseyin Orourke for NOB appointment. Please transfer to [facility] or vt. Please do not give her a 2:00 time with me. I am unavailable then Aravind Harrison RN 12/15/2024 1:42 PM Signed Completed Allergies As of Date: 12/15/2024 (No Known Allergies) Date Reviewed: 12/11/2024 Reviewed by: Huseyin Orourke APRN.MANAGER OF SECURITY - Fully Assessed Reason for Visit: Appointment [186] Prescriptions as of 12/15/2024 - VIT 10-IRON FUM-FOLIC ORAL Take by mouth. - doxylamine succinate (UNISOM, DOXYLAMINE, ORAL) Take by mouth. - pyridoxine HCl, vitamin B6, (PYRIDOXINE ORAL) Take by mouth. - ondansetron orally disintegrating (ZOFRAN ODT) 4 mg disintegrating tablet Take 1 tablet by mouth every 8 hours as needed for nausea/vomiting. 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] 10/25/2015 Hypothyroidism (acquired) [E03.9] 10/25/2015 Visit for gynecologic examination [Z01.419] 10/25/2015 Nausea/vomiting in [O21.9] 12/11/2024 Encounter Status:Closed by ARAVIND HARRISON on 12/15/24 Normal [facility] Bilirubin Test strip Ql (U)O rdered By: Arvin Stafford on 12-04-2024 Bilirubin Ql (U) Negative Negative [place] 12-04-2024 CNPN Telephone (WOOB) HILARY HORTA ([id number]) 1995 F Date Time Provider Department 12/04/24 HUSEYIN OROURKE During your visit today, we recorded the following information about you: Dianna Negra Bautista 12/04/2024 8:28 AM Signed Patient called she is about 6 weeks patient said she has been vomiting for 3 days she said she can't keep anything down Please advise Ananya Vaz RN 12/04/2024 9:00 AM Signed Patient called and states she has not been able to keep anything down since Saturday AM. Patient denies any fever, diarrhea, cramping or bleeding. Advised patient to go to ER for IV hydration as is has been more than 24 hours since she has been able to keep anything down, patient is agreeable. [employer] message sent to patient with nausea/vomiting recommendations. KAIT Escobar Lindsey, RN 12/11/2024 8:59 AM Signed Patient is scheduled for New OB appointment on 12/25. She is requesting Zofran. KAIT Escobar Deidre, MD 12/11/2024 10:08 AM Signed She needs to establish care with us before we can order any medications so there are plenty of openings today on schedules she can schedule a virutal or in office visit. Nithya Fairbanks RN 12/11/2024 10:49 AM Signed Spoke to patient and will attempt to schedule with KJ at 1120 for virtual visit, but she needs financial clearance. PSS working on it to see if able to get scheduled. KAIT Castaneda Trisha, RN 12/11/2024 11:20 AM Signed Patient just now financially cleared and KJ unable to do virtual visit. Is it okay to add on to either DM's 230 10 min or EH 430? Those are the only openings left today. KAIT Castaneda Emily, APRN.JEAN PIERRE 12/11/2024 11:23 AM Signed Can schedule virtual at 1:00 with vt Huseyin Orourke APRN.Nithya Soares RN 12/11/2024 11:29 AM Signed Patient notified and scheduled. 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] 10/25/2015 Hypothyroidism (acquired) [E03.9] 10/25/2015 Visit for gynecologic examination [Z01.419] 10/25/2015 Encounter Status:Closed by ANANYA VAZ on 12/04/24 Normal [facility] Emergency Department Summary on 12-04-2024 Emergency Department Summary [facility] Medical Records Department [address] [place] [address] Emergency Department Summary 12/04/24 MR#: [id number] Acct: [id number] Name: HILARY HORTA Rep #: [id number] : 1995 29 From: Arvin Stafford DO PCP: Care Physician,No Primary Status:REG ER Location: ED HPI History of Present Illness Chief Complaint: Nausea/Vomiting Narrative Narrative: Patient is a 29-year-old female G2, P1 who presents to the emergency department the chief complaint of nausea vomiting not tolerating oral intake. Patient states that since Saturday she has been unable to keep anything down and states that she is urinating approximately once a day. 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 She states that she follows with Dr. Vargas [facility]. States that she has not had a confirmed medical test.. Patient denies any recent sick contacts. [facility] Medical History (Updated 12/04/24 @ 13:[address] Arvin Stafford, ) Vitamin deficiency Thyroid disease Hormone deficiency Bone fracture Back problem Depression Anxiety Medical History no medical history Home Medications ???Medication ???Instructions ???Recorded ???Last Taken ???Type NK 09/24/17 Unknown History ondansetron 4 mg disintegrating 4 mg PO Q6H PRN nausea and 5 Unknown Rx tablet vomiting #20 tabs Allergy/AdvReac Type Severity Reaction Status Date / Time No Known Allergies Allergy Verified 12/04/24 09:43 Family History Unknown Arthritis Cancer Diabetes Heart disease Hypertension High cholesterol Hormone Problems Hyperthyroidism Hypothyroid Kidney disease Thyroid cancer Family History no significant family his Surgical History no surgical history Social History Smoking Status: Never smoker alcohol intake: never substance use type: does not use ROS ROS ED ROS Narrative Constitutional: Denies fevers, chills, headaches, lightness, dizziness Eyes: Denies change in vision double and blurry vision Cardiovascular: Denies chest pain or palpitations Respiratory: Denies coughing wheezing shortness of breath Abdomen: Complains of nausea vomiting as noted above denies abdominal pain diarrhea : Denies painful urination, hematuria, polyuria, denies vaginal discharge Neurological: Denies numbness, discontinuing Musculoskeletal: Denies back pain Skin: Denies rashes or lesions EXAM Physical Exam Narrative Exam Narrative: General: Patient lying in bed rest comfortably did not appear to be in acute distress Head: Atraumatic, normocephalic Eyes: PERRL bilateral, EOMI bilateral, no conjunctival injection noted Neck: Soft, supple, trach midline Cardiovascular: Regular rate and rhythm no murmurs gallops rubs noted Respiratory: Clear to auscultation bilaterally Abdomen: Soft, nondistended, nontender to palpation Extremities: +5/5 strength noted in the bilateral upper and lower extremities, radial pulses +2/4 in the bilateral extremities, no pedal edema exam Neurological: Patient following commands knew that she was at [facility] year is 2024 Skin: Warm, dry, intact no rashes or lesions noted Const Vital Signs: 12/04/24 09:44 12/04/24 12:03 Temperature 97.7 F L Temperature Source Oral Pulse Rate 87 89 Respiratory Rate 14 18 Blood Pressure 122/79 H 126/78 H Blood Pressure Mean 93 94 Pulse Ox 100 98 Oxygen Delivery Method Room Air Room Air MDM MDM MDM Narrative Medical decision making narrative: Patient is a 29-year-old female who presents to the emergency department chief complaint of nausea vomiting the setting of approximately 6 weeks . On the differential diagnose includes Melamin to nausea and vomiting, , COVID, flu. Once workup is obtained reviewed she will be reevaluated. Patient be given IV fluids and Reglan. Patient's urinalysis reviewed and showed 25 leukocyte esterase 0-5 white cells with no bacteria noted, test was negative. I went back in and discussed with the patient and she states that she took 2 at home test that were both positive days apart. She states that she still has not had her period will add on a serum test. This was added on was noted be positive. Patient tested negative for COVID flu RSV. Patient is feeling better she like to go home at this point time. Patient will be given Zofran ODT and will be advised to use this as needed for nausea and vomiting. She states that she already has a appointment scheduled with her HYDROGEN BRAZE FURNACE OPERATOR and she is advised to keep this appointment she was advised to (more content not included)... Normal Influenza virus A and B and SARS-CoV-2 (COVID-19) and Respiratory syncytial virus RNAOrdered By: Arvin Stafford on 12-04-2024 SARS-CoV-2 (COVID-19) RNA KYLIE+probe Ql (Unsp spec) Ketones Test strip Ql (U)Ord ered By: Arvin Stafford on 12-04-2024 Ketones Ql (U) 150 mg/dl Abnormal Negative Comment on above: CRITICAL VALUE *HCRI TICAL VALUE CALLED TO Valentino VASQUES12/04/24 1150 Tigist Fitzpatrick.RESULTS READ BACK BY . M100.678on 12-04-2024 M100.678 Normal Reference Range = Negative FLUABV+SARS-CoV-2+RSV Pnl Resp KYLIE+probe GeneXpert Instrument, PCR method SARS-CoV-2 (COVID 19) Negative INFLUENZA A Negative INFLUENZA B Negative RSV PCR Negative Normal Comment on above: Performed By: #### M 100.658 #### Laboratory [facility] [address] [place], [place], [id number] Microscopic analysis of urin e for red blood cells (RBC)Ordered By: Arvin Stafford on 12-04-2024 Microscopic analysis of urine for red blood cells (RBC) 0-5 SEEN /hpf 0-5 Mucus LM Ql (Urine sed)Order ed By: Arvin Stafford on 12-04-2024 Mucus Ql (Urine sed) 1+ /hpf [facility] Nitrite Test strip Ql (U)Ord ered By: Arvin Stafford on 12-04-2024 Nitrite Ql (U) Negative Negative ,Serum,hCG Quali.on 12-04-2024 HCG, SERUM QUAL Positive Normal Comment on above: Result Comment: CRIT ICAL VALUE CALLED TO TISHA CARBALLO (ER) 12/04/24 1306 Ebenezer Penny. RESULTS READ BACK BY SAME. Performed By: #### L 700.6800 #### Laboratory [address] [place], [place], [address] ,Urineon 12-04-2024 Beta HCG ( test) Ql (U) Negative Normal Comment on above: Result Comment: Very dilute urine specimens, as indicated by a low specific gravity, may not contain data entry representative levels of hCG. If is still suspected, a first morning urine specimen should be collected 48 hours later and tested. Performed By: #### L 400.0001, L400.7600 #### Laboratory [address] [place], [place], [address] Protein Test strip Ql (U)Ord ered By: Arvin Stafford on 12-04-2024 Protein Ql (U) 30 mg/dl High Negative Serum beta-hCG test, qualita tiveOrdered By: Arvin Stafford on 12-04-2024 Beta HCG ( test) Ql Negative Comment on above: CRITICAL VALUE ROSADO D TO TISHA CARBALLO (ER)12/04/24 1306 Ebenezer Penny.RESULTS READ BACK BY SAME. Squamous epithelial cells de tection in urine sediment by light microscopyOrdered By: Arvin Stafford on 12-04-2024 Epithelial cells.squamous LM Ql (Urine sed) 5-10 SEEN /hpf 5-10 Urinalysis, Completeon 12-04 Mucus Ql (Urine sed) 1+ /hpf Normal [facility] Comment on above: Order Comment: ALMA CTOR TO SPECIFY Performed By: #### L 400.0001, L400.7600 #### Laboratory [address] [place], [address] RBC 0-5 SEEN Normal 0-5 Comment on above: Order Comment: ALMA CTOR TO SPECIFY Performed By: #### L 400.0001, L400.7600 #### Laboratory [address] [place], [address] EPI,SQUAMOUS 5-10 SEEN Normal 5-10 Comment on above: Order Comment: ALMA CTOR TO SPECIFY Performed By: #### L 400.0001, L400.7600 #### Laboratory [address] [place], [address] WBC 0-5 SEEN Normal 0-5 Comment on above: Order Comment: ALMA CTOR TO SPECIFY Performed By: #### L 400.0001, L400.7600 #### Laboratory [address] [place], [address] KETONE UR 150 mg/dl Abnormal Negative Comment on above: Order Comment: ALMA CTOR TO SPECIFY Result Comment: CRIT ICAL VALUE *H CRITICAL VALUE CALLED TO Valentino VASQUES 12/04/24 1150 Tig[address] Fitzpatrick. RESULTS READ BACK BY . Performed By: #### L 400.0001, L400.7600 #### Laboratory [address] [place], [address] BILIRUBIN URINE Negative Normal Negative Comment on above: Order Comment: ALMA CTOR TO SPECIFY Performed By: #### L 400.0001, L400.7600 #### Laboratory [address] [place], [address] Clarity (U) Clear Normal Clear Comment on above: Order Comment: ALMA CTOR TO SPECIFY Performed By: #### L 400.0001, L400.7600 #### Laboratory [address] [place], [address] Color (U) Yellow Normal Yellow Comment on above: Order Comment: COLLE CTOR TO SPECIFY Performed By: #### L 400.0001, L400.7600 #### Laboratory [address] [place], [address] GLUCOSE, UR Normal Normal Normal Comment on above: Order Comment: ALMA CTOR TO SPECIFY Performed By: #### L 400.0001, L400.7600 #### Laboratory [address] [place], [address] LEUK ESTERASE 25 /ul Abnormal Negative Comment on above: Order Comment: ALMA CTOR TO SPECIFY Performed By: #### L 400.0001, L400.7600 #### Laboratory [address] [place], [address] Nitrite Ql (U) Negative Normal Negative Comment on above: Order Comment: ALMA CTOR TO SPECIFY Performed By: #### L 400.0001, L400.7600 #### Laboratory [address] [place], [address] OCCULT BLOOD-UR 10 /ul Abnormal Negative Comment on above: Order Comment: COLLE CTOR TO SPECIFY Performed By: #### L 400.0001, L400.7600 #### Laboratory [address] [place], [address] pH UR 6.0 Normal 5.0 - 8.0 Comment on above: Order Comment: ALMA CTOR TO SPECIFY Performed By: #### L 400.0001, L400.7600 #### Laboratory [address] [place], [address] PROT DIPSTX 30 mg/dl Abnormal Negative Comment on above: Order Comment: ALMA CTOR TO SPECIFY Performed By: #### L 400.0001, L400.7600 #### Laboratory [address] [place], [address] SP.GR. DIPSTX 1.025 Normal 1.002-1.030 Comment on above: Order Comment: ALMA CTOR TO SPECIFY Performed By: #### L 400.0001, L400.7600 #### Laboratory [address] [place], [address] UROBILI Normal Normal Normal Comment on above: Order Comment: ALMA CTOR TO SPECIFY Performed By: #### L 400.0001, L400.7600 #### Laboratory [address] [place], [address] BACTERIA 0 SEEN Normal None Seen Comment on above: Order Comment: ALMA CTOR TO SPECIFY Performed By: #### L 400.0001, L400.7600 #### Laboratory [address] [place], [address] Urine clarityOrdered By: Bernard Stafford on 12-04-2024 Clarity (U) Clear Clear Urine color determinationOrd ered By: Arvin Stafford on 12-04-2024 Color (U) Yellow Yellow Urine glucose detectionOrder ed By: Arvin Stafford on 12-04-2024 Glucose Ql (U) Normal mg/dl Normal Urine leukocyte esterase det ection by dipstickOrdered By: Arvin Stafford on 12-04-2024 Leukocyte esterase Test strip Ql (U) 25 /ul High Negative Urine pHOrdered By: Arvin rossi on 12-04-2024 pH (U) 6.0 [pH] 5.0 - 8.0 Urine testOrdered By: Arvin Stafford on 12-04-2024 HCG ( test) Ql (U) Negative Comment on above: Very dilute urine sp ecimens, as indicated by a low specificgravity, may not contain data entry representative levels of hCG. If is still suspected, a first morning urinespecimen should be collected 48 hours later and tested. Urine sediment bacteria coun t by microscopy (number/high power field)Ordered By: Arvin Stafford on 12-04-2024 Bacteria LM.HPF (Urine sed) [#/Area] 0 /[HPF] None Seen Urine specific gravity measu rementOrdered By: Arvin Stafford on 12-04-2024 Specific gravity (U) [Rel density] 1.025 1.002-1.030 Urine urobilinogen measureme ntOrdered By: Arvin Stafford on 12-04-2024 Urobilinogen Ql (U) Normal mg/dl Normal [facility] White blood cell countOrdere d By: Arvin Stafford on 12-04-2024 White blood cell count 0-5 SEEN /hpf 0-5 CBC, PLATELETS & AUT DIFF (2 7912)Ordered By: Chipper Feeder on 05-11-2021 Basophils (Bld) [#/Vol] 0.0 10*3/uL Normal 0.0-0.2 [facility]; [facility] Work Phone: Comment on above: PATIENT NOT FASTINGP ERFORMED BY: [employer] Cepvts7544 [facility] [id number] Basophils/100 WBC (Bld) 1 % Normal [facility]; [facility] Work Phone: Comment on above: PATIENT NOT FASTINGP ERFORMED BY: [employer]6370 [facility] [id number] Eosinophils (Bld) [#/Vol] 0.1 10*3/uL Normal 0.0-0.4 [facility]; [facility] Work Phone: Comment on above: PATIENT NOT FASTINGP ERFORMED BY: [employer]70 [facility] [id number] Eosinophils/100 WBC (Bld) 1 % Normal [facility]; [facility] Work Phone: Comment on above: PATIENT NOT FASTINGP ERFORMED BY: CB [facility] Ayjaxa2812 [address] RoadDublin [place] [id number] Erythrocyte distribution width (RBC) [Ratio] 12.7 % Normal 11.7-15.4 [facility]; [facility] Work Phone: Comment on above: PATIENT NOT FASTINGP ERFORMED BY: CB [facility] Uwtoiw2176 [address] RoadDublin [place] [id number] Hematocrit (Bld) [Volume fraction] 37.4 % Normal 34.0-46.6 [facility]; [facility] Work Phone: Comment on above: PATIENT NOT FASTINGP ERFORMED BY: CB [facility] Adqdce0591 [address] RoadDublin [place] [id number] Hemoglobin (Bld) [Mass/Vol] 12.6 g/dL Normal 11.1-15.9 [facility]; [facility] Work Phone: Comment on above: PATIENT NOT FASTINGP ERFORMED BY: CB [facility] Feyyma7907 [address] RoadDublin [place] [id number] Immature granulocytes (Bld) [#/Vol] 0.0 10*3/uL Normal 0.0-0.1 [facility]; [facility] Work Phone: Comment on above: PATIENT NOT FASTINGP ERFORMED BY: CB [facility] Tednqd4637 [address] RoadDublin [place] [id number] Immature granulocytes/100 WBC (Bld) 0 % Normal [facility]; [facility] Work Phone: Comment on above: PATIENT NOT FASTINGP ERFORMED BY: CB [facility] Qckvbk5334 [address] RoadDublin [place] [id number] Lymphocytes (Bld) [#/Vol] 1.9 10*3/uL Normal 0.7-3.1 [facility]; [facility] Work Phone: Comment on above: PATIENT NOT FASTINGP ERFORMED BY: CB [facility] Mhpsts1922 [address]Dublin [place] [id number] Lymphocytes/100 WBC (Bld) 26 % Normal [facility]; [facility] Work Phone: Comment on above: PATIENT NOT FASTINGP ERFORMED BY: CB [facility] Mduxlx4050 [address]Dublin [place] [id number] MCH (RBC) [Entitic mass] 28.4 pg Normal 26.6-33.0 [facility]; [facility] Work Phone: Comment on above: PATIENT NOT FASTINGP ERFORMED BY: CB [facility] Pnrash2953 [address]Dublin [place] [id number] MCHC (RBC) [Mass/Vol] 33.7 g/dL Normal 31.5-35.7 [facility]; [facility] Work Phone: Comment on above: PATIENT NOT FASTINGP ERFORMED BY: CB [facility] Fmkzax7056 [address] RoadDublin [place] [id number] MCV (RBC) [Entitic vol] 84 fL Normal 79-97 [facility]; [facility] Work Phone: Comment on above: PATIENT NOT FASTINGP ERFORMED BY: CB [facility] Rkilfa0685 [address] RoadDublin [place] [id number] Monocytes (Bld) [#/Vol] 0.4 10*3/uL Normal 0.1-0.9 [facility]; [facility] Work Phone: Comment on above: PATIENT NOT FASTINGP ERFORMED BY: CB [facility] Xxfwqg8610 [address] RoadDublin [place] [id number] Monocytes/100 WBC (Bld) 5 % Normal [facility]; [facility] Work Phone: Comment on above: PATIENT NOT FASTINGP ERFORMED BY: CB [facility] Tfbzhk2577 [address] RoadDublin [place] [id number] Neutrophils (Bld) [#/Vol] 4.8 10*3/uL Normal 1.4-7.0 [facility]; [facility] Work Phone: Comment on above: PATIENT NOT FASTINGP ERFORMED BY: CB [facility] Gkdaxo4069 [address] RoadDublin [place] [id number] Neutrophils/100 WBC (Bld) 67 % Normal [facility]; [facility] Work Phone: Comment on above: PATIENT NOT FASTINGP ERFORMED BY: ABRAM LabCoflavia MurphyBvnilp2902 Y[address] RoadDublin [place] [id number] Platelets (Bld) [#/Vol] 246 10*3/uL Normal 150-450 [facility]; [facility] Work Phone: Comment on above: PATIENT NOT FASTINGP ERFORMED BY: CB [facility] Cioxsf8214 [address] RoadDublin [place] [id number] RBC (Bld) [#/Vol] 4.43 10*6/uL Normal 3.77-5.28 [facility]; [facility] Work Phone: Comment on above: PATIENT NOT FASTINGP ERFORMED BY: ABRAM Murphylin6370 [address] RoadDublin [place] [id number] WBC (Bld) [#/Vol] 7.2 10*3/uL Normal 3.4-10.8 [facility]; [facility] Work Phone: Comment on above: PATIENT NOT FASTINGP ERFORMED BY: ABRAM [facility] Yegvvg1819 [address] RoadDublin [place] [id number] Metabolic Panel, Comprehensi ve ([id number])Ordered By: Chipper Feeder on 05-11-2021 Albumin [Mass/Vol] 4.4 g/dL Normal 3.9-5.0 [facility]; [facility] Work Phone: Comment on above: PATIENT NOT FASTINGP ERFORMED BY: ABRAM LabKarunarp Phumeg[address] [facility]bl[facility] [place] [id number] Albumin/Globulin [Mass ratio] 1.6 {ratio} Normal 1.2-2.2 [facility]; [facility] Work Phone: Comment on above: PATIENT NOT FASTINGP ERFORMED BY: ABRAM [facility] Zqcizr9843 [address] RoadDublin [place] [id number] ALP [Catalytic activity/Vol] 80 U/L Normal 48-121 [facility]; [facility] Work Phone: Comment on above: PATIENT NOT FASTINGP ERFORMED BY: CB [facility] Jphavz8381 [address] RoadDublin [place] [id number] ALT [Catalytic activity/Vol] 25 U/L Normal 0-32 [facility]; [facility] Work Phone: Comment on above: PATIENT NOT FASTINGP ERFORMED BY: ABRAM Muir Yvrrsx9958 [address] RoadDublin [place] [id number] AST [Catalytic activity/Vol] 21 U/L Normal 0-40 [facility]; [facility] Work Phone: Comment on above: PATIENT NOT FASTINGP ERFORMED BY: ABRAM LabCo Khddmw2090 [address] RoadDublin [place] [id number] Bilirubin [Mass/Vol] 0.4 mg/dL Normal 0.0-1.2 [facility] re[facility]; [facility] Work Phone: Comment on above: PATIENT NOT FASTINGP ERFORMED BY: Wood Rmueyf8663 [address] RoadDublin [place] [id number] Calcium [Mass/Vol] 9.8 mg/dL Normal 8.7-10.2 [facility]; [facility] Work Phone: Comment on above: PATIENT NOT FASTINGP ERFORMED BY: Wood Umdksb7820 [address] RoadDublin [place] [id number] Chloride [Moles/Vol] 101 mmol/L Normal 96-106 Comp re[facility]; [facility] Work Phone: Comment on above: PATIENT NOT FASTINGP ERFORMED BY: LabKaruna Krjumi4199 [address] RoadDublin [place] [id number] CO2 [Moles/Vol] 25 mmol/L Normal 20-29 [facility]; [facility] Work Phone: Comment on above: PATIENT NOT FASTINGP ERFORMED BY: Wood Wocksm2614 [address] RoadDublin [place] [id number] Creatinine [Mass/Vol] 0.76 mg/dL Normal 0.57-1.00 [facility]; [facility] Work Phone: Comment on above: PATIENT NOT FASTINGP ERFORMED BY: CB [facility] Rxdpkk8938 [facility]in [place] [id number] GFR/1.73 sq M.predicted among blacks CKD-EPI (S/P/Bld) [Vol rate/Area] 125 mL/min/1.73 Normal [facility]; [facility] Work Phone: Comment on above: [facility] currently reports eGFR in compliance with the current recommendations of the National Kidney Foundation. [facility] will update reporting as new guidelines are published from the NKF-ASN Task force. PATIENT NOT FASTINGP ERFORMED BY: [facility]6370 [facility] [id number] GFR/1.73 sq M.predicted among non-blacks CKD-EPI (S/P/Bld) [Vol rate/Area] 109 mL/min/1.73 Normal [facility]; [facility] Work Phone: Comment on above: PATIENT NOT FASTINGP ERFORMED BY: [facility]6370 [facility] [id number] Globulin (S) [Mass/Vol] 2.7 g/dL Normal 1.5-4.5 [facility]; [facility] Work Phone: Comment on above: PATIENT NOT FASTINGP ERFORMED BY: [facility]6370 [facility] [id number] Glucose [Mass/Vol] 90 mg/dL Normal 65-99 [facility]; [facility] Work Phone: Comment on above: PATIENT NOT FASTINGP ERFORMED BY: [facility] [facility]in [place] [id number] Potassium [Moles/Vol] 4.0 mmol/L Normal 3.5-5.2 [facility]; [facility] Work Phone: Comment on above: PATIENT NOT FASTINGP ERFORMED BY: [facility]6370 [facility] [id number] Protein [Mass/Vol] 7.1 g/dL Normal 6.0-8.5 [facility]; [facility] Work Phone: Comment on above: PATIENT NOT FASTINGP ERFORMED BY: ABRAM [facility] Npitcz5326 [address] RoadDublin [place] [id number] Sodium [Moles/Vol] 138 mmol/L Normal 134-144 [facility]; [facility] Work Phone: Comment on above: PATIENT NOT FASTINGP ERFORMED BY: CB [facility] Zdysxb4890 [address] RoadDublin [place] [id number] Urea nitrogen [Mass/Vol] 10 mg/dL Normal 6-20 [facility]; [facility] Work Phone: Comment on above: PATIENT NOT FASTINGP ERFORMED BY: ABRAM [facility] Vxjgkw0712 [address] RoadDublin [place] [id number] Urea nitrogen/Creatinine [Mass ratio] 13 mg/mg Normal 9-23 [facility]; [facility] Work Phone: Comment on above: PATIENT NOT FASTINGP ERFORMED BY: CB [facility] Yctkui[address] [facility]in [place] [id number] Sed Rate Erythrocyte ([id number]) Ordered By: Chipper Feeder on 05-11-2021 ESR (Bld) [Velocity] 2 mm/h Normal 0-32 [facility]; [facility] Work Phone: Comment on above: PATIENT NOT FASTINGP ERFORMED BY: ABRAM [facility] Fbibkl1260 Yin Roadblin [place] [id number] TSH ([id number])Ordered By: Syste m River Captain on 05-11-2021 TSH Qn 1.790 {uIU/mL} Normal 0.450-4.500 [facility] Internal [facility]; [facility] Work Phone: Comment on above: PATIENT NOT FASTINGP ERFORMED BY: CB [facility] Hnjicq5787 [address] RoadDublin [place] [id number] CT HEAD OR BRAIN W/O CONTRAS Ton 04-01-2020 CT HEAD OR BRAIN W/O CONTRAST ORIGINAL CLINICAL INDICATION: pain; trauma patient TECHNIQUE: CT head without contrast. COMPARISON: None available FINDINGS: No evidence of acute transcortical infarct, intracranial hemorrhage, or mass effect. No hydrocephalus or extra-axial collection. The visualized orbital contents are normal. The paranasal sinuses, mastoid air cells, and soft tissues and osseous structures are normal. IMPRESSION: Normal CT head. Interpreted By: Mango Vela Preliminary Report By: Mango Vela Electronically Signed By: Mango Vela Dictated Date: 04/01/2020 1:48:00 PM Prelim Date: 04/01/2020 1:48:00 PM Sign Date: 04/01/2020 1:49:20 PM Ordering Provider:[facility] hospital) CT SPINE CERVICAL W/O CONTRA El 04-01-2020 CT SPINE CERVICAL W/O CONTRAST ORIGINAL CLINICAL INDICATION: pain; trauma patient TECHNIQUE: CT of the cervical spine was performed without the administration of intravenous contrast, according to standard protocol. COMPARISON: None available FINDINGS: ALIGNMENT: Straightening of the cervical spine without listhesis. VERTEBRAE: The vertebral bodies are normal in height. There is no fracture or aggressive osseous lesion. DISCS: The disc spaces are maintained. PARAVERTEBRAL SOFT TISSUES: The visualized paravertebral soft tissues appear within normal limits. EVALUATION OF INDIVIDUAL LEVELS DEMONSTRATES: No disk herniation, spinal canal or neuroforaminal stenosis. IMPRESSION: Normal CT cervical spine. Interpreted By: Mango Vela Preliminary Report By: Mango Vela Electronically Signed By: Mango Vela Dictated Date: 04/01/2020 2:12:42 PM Prelim Date: 04/01/2020 2:12:42 PM Sign Date: 04/01/2020 2:15:43 PM Ordering Provider:Marvin [facility]) EMERGENCY REPORTon [address] [facility] EMERGENCY ROOM REPORT NAME ACCOUNT SEX AGE ADMIT DISCHARGE PT MED. RECORD# NUMBER DATE DATE TYPE CARLOS [id number] F 23 10/31/18 10/31/[address] [id number] ROOM: ER DATE OF : 1995 DICTATING PHYSICIAN: Gwyn Penaloza TIME SEEN: 10:05 a.m. 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 She was bit on the left side of the face by a dog brought in for a rescue this morning. The animal can be observed or it may have already been sacrificed, and if that is the case the animal will be sent to the laboratory for analysis. The incident occurred this morning at work. The patient states her last tetanus was greater than 5 years ago. She complains of some mild pain to the area. She presently rates the pain as a 3 on a severity scale of 1-10. She describes it as sharp in nature and mildly worse with facial movements. PAST MEDICAL HISTORY: Denied. PAST SURGICAL HISTORY: Denied. ALLERGIES: No known drug allergies. SOCIAL HISTORY: The patient is not a smoker. She denies any illicit drug use. She does admit to occasional alcohol use. She lives at home with her family. REVIEW OF SYSTEMS: She denies any fevers, sweats or chills. She denies any chest pain, shortness of breath, cough, sputum, wheezing, abdominal pain, nausea, vomiting, diarrhea, constipation, melena, hematochezia, headache, numbness, unsteady gait, weakness, neck or back pain, or joint pain. She does complain of a left-sided facial dog bite with some mild associated swelling. Further review of systems is negative. PHYSICAL EXAMINATION: Vital signs: Blood pressure is 132/96, pulse 87, respirations 18, temperature 98.6, pulse oximetry 97%, and weight 127 pounds. The patient is alert and oriented x3. She presently appears in no acute distress. She is pleasant and cooperative. HEENT: Pupils are equal and reactive to light. No conjunctival injection. Nose exhibits no rhinorrhea or epistaxis. Mouth: Mucous membranes are moist. Teeth are intact. I do note a small, well-approximated linear dog bite to the left face just above the left lip. The wound is approximately 7 mm in length, and the wound edges are well-approximated. It is scabbed over. There is no bleeding. There is no redness, warmth or erythema. It is mildly tender to palpation. When I do anne the left upper lip, there is a non-gaping laceration to the mucosal surface of the left Page 1 of 2 [facility] Report upper lip that is more inferiorly located than the laceration on the outside of her lip, so it is not linavkg-lad-gnkcgbe. Again, that laceration is well-approximated as well, and she has some swelling to the lateral aspect of her left upper lip. I see no wounds there at this point that would require any suturing. Again, as noted, there is no redness, warmth or erythema. No lymphangitic streaking. Neck is supple. Trachea is midline. No JVD or lymphadenopathy. No posterior cervical tenderness. Lungs are clear to auscultation in all lung kraus. No adventitious sounds are noted. No accessory muscle use. CV: Heart rate and rhythm are regular without murmur. Abdomen is soft and nontender with normoactive bowel sounds x4 quadrants. No guarding or rigidity. No rebound. No palpable abdominal masses. No hepatosplenomegaly. Extremities: No edema or cyanosis. Peripheral pulses are intact. No motor or sensory deficits are noted. Hand intermediate teacher are strong and symmetric. Neurologic examination shows the patient to be alert and oriented x4. No motor or sensory deficits are noted. Normal speech. EMERGENCY DEPARTMENT COURSE AND TREATMENT: I did update the patient on her tetanus. We gave her a Tdap 0.5 mL IM here. We placed her on Augmentin 875 mg one p.o. b.i.d., dispense #20 with no refill. She was given a dose of Augmentin here prior to discharge, and she is to take another dose in 12 hours and then take it twice a day for the entire 10-day course of therapy. She does not have a family doctor, so I am going to refer her to [facility] for follow-up in 2-4 days for a reevaluation. If she wants to cleanse that site, she can cleanse it with just mild soap and water. I cautioned her against using any hydrogen peroxide or rubbing alcohol. If the wound site starts to become red, warm, swollen, or has any purulent drainage or becomes increasingly more painful, she is to return here to the Emergency Department for reevaluation. The patient was discharged in a clinically stable condition. Nurse's notes reviewed. DIAGNOSIS: Dog bite to left face. Dictated By: Gwyn Penaloza DO 10/31/18 10:54 JOB #: [id number] Transcribed By: iban 11/01/18 08:01 Electronically signed by: E-Sign: Dr. Gwyn Penaloza D.O. 11/07/18 19:59 Page 2 of 2 [facility] Emergency Room Report Normal [facility] Vital Signs Date Time Vital Sign Value Performing Clinician Facility 06-23-2025 09:54-0400 Body temperature 98.91 [degF] Treatment Wstr Work Phone: [facility] 06-23-2025 09:54-0400 Diastolic blood pressure 84 mm[Hg] Treatment Wstr Work Phone: [facility] 06-23-2025 09:54-0400 Heart rate 99 /min Treatment Wstr Work Phone: [facility] 06-23-2025 09:54-0400 SaO2% (BldA) [Mass fraction] 99 % Treatment Wstr Work Phone: [facility] 06-23-2025 09:54-0400 Systolic blood pressure 109 mm[Hg] Treatment Wstr Work Phone: [facility] 06-21-2025 12:55-0400 Body temperature 97.7 [degF] Treatment Wstr Work Phone: [facility] 06-21-2025 12:55-0400 Diastolic blood pressure 67 mm[Hg] Treatment Wstr Work Phone: [facility] 06-21-2025 12:55-0400 Heart rate 94 /min Treatment Wstr Work Phone: [facility] 06-21-2025 12:55-0400 SaO2% (BldA) [Mass fraction] 100 % Treatment Wstr Work Phone: [facility] 06-21-2025 12:55-0400 Systolic blood pressure 117 mm[Hg] Treatment Wstr Work Phone: [facility] 06-17-2025 10:43-0400 Body mass index (BMI) [Ratio] 29.21 kg/m2 Kacy Garcia MD Work Phone: [facility] 06-17-2025 10:43-0400 Body weight 76.2 kg Kacy Garcia MD Work Phone: [facility] 06-17-2025 10:43-0400 Diastolic blood pressure 72 mm[Hg] Kacy Garcia MD Work Phone: [facility] 06-17-2025 10:43-0400 Systolic blood pressure 122 mm[Hg] Kacy Garcia MD Work Phone: [facility] 06-16-2025 13:00-0400 Body temperature 99 [degF] Treatment Wstr Work Phone: [facility] 06-16-2025 13:00-0400 Diastolic blood pressure 71 mm[Hg] Treatment Wstr Work Phone: [facility] 06-16-2025 13:00-0400 Heart rate 99 /min Treatment Wstr Work Phone: [facility] 06-16-2025 13:00-0400 Systolic blood pressure 107 mm[Hg] Treatment Wstr Work Phone: [facility] 06-02-2025 15:26-0400 Body mass index (BMI) [Ratio] 28.86 kg/m2 Lucy Vargas MD Work Phone: [facility] 06-02-2025 15:26-0400 Body weight 75.3 kg Lucy Vargas MD Work Phone: [facility] 06-02-2025 15:26-0400 Diastolic blood pressure 72 mm[Hg] Lucy Vargas MD Work Phone: [facility] 06-02-2025 15:26-0400 Systolic blood pressure 122 mm[Hg] Lucy Vargas MD Work Phone: [facility] 05-20-2025 07:01-0400 Body mass index (BMI) [Ratio] 28.51 kg/m2 Huseyin Orourke APRN.MANAGER OF SECURITY Work Phone: [facility] 05-20-2025 07:01-0400 Body weight 74.39 kg Huseyin Orourke APRN.MANAGER OF SECURITY Work Phone: [facility] 05-20-2025 07:01-0400 Diastolic blood pressure 62 mm[Hg] Huseyin Orourke APRN.MANAGER OF SECURITY Work Phone: [facility] 05-20-2025 07:01-0400 Systolic blood pressure 110 mm[Hg] Huseyin Orourke INDUSTRIAL GAS FITTER.MANAGER OF SECURITY Work Phone: [facility] 05-06-2025 11:18-0400 Body mass index (BMI) [Ratio] 27.99 kg/m2 Leela Lincoln INDUSTRIAL GAS FITTER.CNM Work Phone: [facility] 05-06-2025 11:18-0400 Body weight 73.03 kg Leela Lincoln INDUSTRIAL GAS FITTER.CNM Work Phone: [facility] 05-06-2025 11:18-0400 Diastolic blood pressure 68 mm[Hg] Leela Lincoln INDUSTRIAL GAS FITTER.CNM Work Phone: [facility] 05-06-2025 11:18-0400 Systolic blood pressure 122 mm[Hg] Leela Lincoln INDUSTRIAL GAS FITTER.CNM Work Phone: [facility] 04-08-2025 11:26-0400 Body mass index (BMI) [Ratio] 26.25 kg/m2 Delisa Cannon MD Work Phone: [facility] 04-08-2025 11:26-0400 Body weight 68.49 kg Delisa Cannon MD Work Phone: [facility] 04-08-2025 11:26-0400 Diastolic blood pressure 70 mm[Hg] Delisa Cannon MD Work Phone: [facility] 04-08-2025 11:26-0400 Systolic blood pressure 122 mm[Hg] Delisa Cannon MD Work Phone: [facility] 03-29-2025 09:59-0400 Body height 160.02 cm No Primary Care Physician 03-29-2025 09:59-0400 Body mass index (BMI) [Ratio] 26.9 kg/m2 No Primary Care Physician 03-29-2025 09:59-0400 Body temperature 98.4 [degF] No Primary Care Physician 03-29-2025 09:59-0400 Body weight 68.94 kg No Primary Care Physician 03-29-2025 09:59-0400 Diastolic blood pressure 73 mm[Hg] No Primary Care Physician 03-29-2025 09:59-0400 Heart rate 94 /min No Primary Care Physician 03-29-2025 09:59-0400 SaO2% (BldA) [Mass fraction] 100 % No Primary Care Physician 03-29-2025 09:59-0400 Systolic blood pressure 109 mm[Hg] No Primary Care Physician 03-12-2025 14:56-0400 Body mass index (BMI) [Ratio] 25.49 kg/m2 Uzma Miles MD Work Phone: [facility] 03-12-2025 14:56-0400 Body weight 66.5 kg Uzma Miles MD Work Phone: [facility] 03-12-2025 14:56-0400 Diastolic blood pressure 74 mm[Hg] Uzma Miles MD Work Phone: [facility] 03-12-2025 14:56-0400 Systolic blood pressure 118 mm[Hg] Uzma Miles MD Work Phone: [facility] 12-17-2024 11:01-0400 Body height 161.5 cm Huseyin Hamary INDUSTRIAL GAS FITTER.MANAGER OF SECURITY Work Phone: [facility] 12-17-2024 11:01-0400 Body mass index (BMI) [Ratio] 23.99 kg/m2 Huseyin Hamary INDUSTRIAL GAS FITTER.MANAGER OF SECURITY Work Phone: [facility] 12-17-2024 11:01-0400 Body weight 62.6 kg Huseyin Hamayr INDUSTRIAL GAS FITTER.MANAGER OF SECURITY Work Phone: [facility] 12-17-2024 11:01-0400 Diastolic blood pressure 68 mm[Hg] Huseyin Haury INDUSTRIAL GAS FITTER.MANAGER OF SECURITY Work Phone: [facility] 12-17-2024 11:01-0400 Systolic blood pressure 118 mm[Hg] Huseyin Haury INDUSTRIAL GAS FITTER.MANAGER OF SECURITY Work Phone: [facility] 12-04-2024 13:28-0500 Body temperature 97.7 [degF] No Primary Care Physician 12-04-2024 13:28-0500 Diastolic blood pressure 78 mm[Hg] No Primary Care Physician 12-04-2024 13:28-0500 Heart rate 89 /min No Primary Care Physician 12-04-2024 13:28-0500 Respiratory rate 18 /min No Primary Care Physician 12-04-2024 13:28-0500 SaO2% (BldA) [Mass fraction] 98 % No Primary Care Physician 12-04-2024 13:28-0500 Systolic blood pressure 126 mm[Hg] No Primary Care Physician 12-04-2024 09:44-0500 Body mass index (BMI) [Ratio] 24.5 kg/m2 No Primary Care Physician 12-04-2024 09:44-0500 Body weight 62.91 kg No Primary Care Physician 05-31-2021 14:22-0400 Body height 161.29 cm Carrie Carrera LPN [facility] Work Phone: 05-31-2021 14:22-0400 Body mass index (BMI) [Ratio] 23.8 kg/m2 Carrie Carrera LPN [facility]; [facility] Work Phone: 05-31-2021 14:22-0400 Body surface area Derived from formula 1.65 m2 Carrie Carrera LPN [facility]; [facility] Work Phone: 05-31-2021 14:22-0400 Body temperature 97.1 [degF] Carrie Carrera LPN [facility]; [facility] Work Phone: Comment on above: Method: Temporal 05-31-2021 14:22-0400 Body weight 61.92 kg Carrie Carrera LPN [facility]; [facility] Work Phone: 05-31-2021 14:22-0400 Diastolic blood pressure 84 mm[Hg] Carrie Carrera LPN [facility]; [facility] Work Phone: Comment on above: Patient Position: Sitting; Cuff Location : Left Arm; Cuff Size: Standard 05-31-2021 14:22-0400 Heart rate 91 /min Carrie Carrera LPN [facility]; [facility] Work Phone: Comment on above: Pattern: Regular 05-31-2021 14:22-0400 Respiratory rate 16 /min Carrie Carrera LPN [facility]; [facility] Work Phone: Comment on above: Pattern: Unlabored 05-31-2021 14:22-0400 SaO2% (BldA) [Mass fraction] 98 % Carrie Carrera LPN [facility]; [facility] Work Phone: Comment on above: Room air 05-31-2021 14:22-0400 Systolic blood pressure 128 mm[Hg] Carrie Carrera LPN [facility]; [facility] Work Phone: Comment on above: Patient Position: Sitting; Cuff Location : Left Arm; Cuff Size: Standard 05-10-2021 09:46-0400 Body height 161.29 cm Carrie Carrera LPN [facility]; [facility] Work Phone: 05-10-2021 09:46-0400 Body mass index (BMI) [Ratio] 23.63 kg/m2 Carrie Carrera ESME [facility]; [facility] Work Phone: 05-10-2021 09:46-0400 Body surface area Derived from formula 1.65 m2 Carrie Carrera LPN [facility]; [facility] Work Phone: 05-10-2021 09:46-0400 Body temperature 97.5 [degF] Carrie Carrera LPN [facility]; [facility] Work Phone: Comment on above: Method: Infrared 05-10-2021 09:46-0400 Body weight 61.46 kg Carrie Carrera LPN [facility]; [facility] Work Phone: 05-10-2021 09:46-0400 Diastolic blood pressure 90 mm[Hg] Carrie Carrera LPN [facility]; [facility] Work Phone: Comment on above: Patient Position: Sitting; Cuff Location : Left Arm; Cuff Size: Standard 05-10-2021 09:46-0400 Heart rate 111 /min Carriereta Richardsrex VICTORIA [facility]; [facility] Work Phone: Comment on above: Pattern: Regular 05-10-2021 09:46-0400 Respiratory rate 16 /min Carrie Carrera ESME [facility]; [facility] Work Phone: Comment on above: Pattern: Unlabored 05-10-2021 09:46-0400 SaO2% (BldA) [Mass fraction] 98 % Carriereta Richardsrex VICTORIA [facility]; [facility] Work Phone: Comment on above: Room air 05-10-2021 09:46-0400 Systolic blood pressure 126 mm[Hg] Carriereta Carrera ESME [facility]; [facility] Work Phone: Comment on above: Patient Position: Sitting; Cuff Location : Left Arm; Cuff Size: Standard Encounters Encounter Date Encounter Type Care Provider Facility Start: 07-26-2025 ambulatory Uzma Miles Facility:[facility] Start: 07-22-2025 End: 07-22-2025 ambulatory ULCY VARGAS Facility:[facility] Start: 07-16-2025 End: 07-16-2025 ambulatory LUCY VARGAS Facility:[facility] Start: 07-08-2025 End: 07-08-2025 ambulatory LUCY VARGAS Facility:[facility] Start: 07-02-2025 End: 07-02-2025 ambulatory LUCY VARGAS Facility:[facility] Start: 06-25-2025 End: 06-25-2025 ambulatory NAOMY KOWALSKI Facility:[facility] Start: 06-23-2025 End: 06-23-2025 ambulatory Treatment Rm 17 Ar [facility] Work Phone: Hematology/Oncology Comment on above: Maternal iron defici ency anemia complicating , third trimester (HCC) (Primary Dx) Start: 06-21-2025 End: 06-21-2025 ambulatory Treatment Rm 14 Ar [facility] Work Phone: Hematology/Oncology Comment on above: Maternal iron defici ency anemia complicating , third trimester (HCC) (Primary Dx) Start: 06-17-2025 End: 06-17-2025 Patient encounter procedure Kacy Garcia MD Work Phone: OB/Gynecology Comment on above: Supervision of high risk in third trimester (HCC) (Primary Dx); Anemia complicating , third trimester (HCC); 33 weeks gestation of (HCC) Refill Request Start: 06-17-2025 End: 06-17-2025 ambulatory KACY GARCIA Facility:[facility] Start: 06-16-2025 End: 06-16-2025 ambulatory Treatment Rm 14 Ar [facility] Work Phone: Hematology/Oncology Comment on above: Maternal iron defici ency anemia complicating , third trimester (HCC) (Primary Dx) Start: 06-14-2025 End: 06-16-2025 Follow-up encounter Naomy Kowalski PA-C Work Phone: BLOOD MANAGEMENT Start: 06-11-2025 End: 06-11-2025 ambulatory NAOMY KOWALSKI Facility:[facility] Start: 06-10-2025 End: 06-10-2025 Patient encounter procedure Naomy Kowalski PA-C Work Phone: BLOOD MANAGEMENT Comment on above: Maternal iron defici ency anemia complicating , third trimester (HCC) (Primary Dx) Start: 06-10-2025 End: 06-10-2025 Telemedicine consultation with patient Naomy Dex SNYDER Work Phone: BLOOD MANAGEMENT Start: 06-10-2025 End: 06-10-2025 ambulatory DELISA STEVE Facility:[facility] Start: 06-02-2025 End: 06-02-2025 ambulatory [facility] Facility:[facility] Start: 06-02-2025 End: 06-02-2025 Patient encounter procedure Lucy Vargas MD Work Phone: OB/Gynecology Comment on above: Supervision of high risk in third trimester (HCC) (Primary Dx); Anemia complicating , third trimester (HCC); Hypothyroidism, unspecified type; 31 weeks gestation of (HCC); Need for vaccination; Excessive growth affecting management of in third trimester, single or unspecified fetus (HCC) Hypothyroidism affec ting in third trimester (HCC) (Primary Dx); Supervision of high risk in third trimester (HCC); 29 weeks gestation of (HCC); Anemia complicating , third trimester (HCC); Hypothyroidism, unspecified type; Lyme disease, unspecified Start: 06-02-2025 End: 06-02-2025 ambulatory HUSEYIN BONNIEMARY Facility:[facility] Start: 05-20-2025 End: 05-20-2025 Patient encounter procedure Huseyin Orourke INDUSTRIAL GAS FITTER.MANAGER OF SECURITY Work Phone: OB/Gynecology Comment on above: Supervision of high risk in third trimester (HCC) (Primary Dx); 29 weeks gestation of (HCC); Anemia complicating , third trimester (HCC); Hypothyroidism, unspecified type; Lyme disease, unspecified Start: 05-20-2025 End: [facility] Start: 05-19-2025 End: 05-19-2025 Refill Uzma Miles MD Work Phone: OB/Gynecology Comment on above: Refill Request Start: 05-07-2025 End: 05-17-2025 Follow-up encounter Delisa Cannon MD Work Phone: OB/Gynecology Start: 05-06-2025 End: 05-06-2025 Patient encounter procedure Leela Lincoln INDUSTRIAL GAS FITTER.CNM Work Phone: OB/Gynecology Comment on above: Supervision of high risk in second trimester (HCC) (Primary Dx); Nausea/vomiting in (HCC); Hypothyroidism, unspecified type; Screening for diabetes mellitus; 27 weeks gestation of (HCC); Lyme disease, unspecified Start: 05-06-2025 End: 05-06-2025 [facility] Start: 04-08-2025 End: 04-08-2025 Office outpatient visit 15 minutes Delisa Cannon MD Work Phone: OB/Gynecology Comment on above: Supervision of high risk in second trimester (HCC) (Primary Dx); Hypothyroidism, unspecified type; 23 weeks gestation of (HCC); Screening for diabetes mellitus; Encounter for supervision of normal first in third trimester (HCC) Start: 04-08-2025 End: 04-08-2025 ambulatory DELISA CANNON Facility:[facility] Start: 03-30-2025 End: 03-30-2025 Telephone encounter Uzma Miles MD Work Phone: OB/Gynecology Comment on above: Patient Update Start: 03-29-2025 End: 03-29-2025 Telephone encounter Robyn Forde APRN.CNM Work Phone: OB/Gynecology Comment on above: OB Lyme's Disease Start: 03-29-2025 End: 03-29-2025 Patient encounter procedure Otoniel Liriano [place] [facility] Work Phone: Start: 03-29-2025 End: 03-29-2025 ambulatory No Primary Care Physician [facility] Work Phone: Start: 03-12-2025 End: 03-12-2025 Patient encounter procedure Whi Tech 1 Telephone Switchboard Operator [facility]aternal Medicine Comment on above: Encounter for anatomic survey (HCC) (Primary Dx); 19 weeks gestation of (HCC) Encounter for superv ision of high risk in first trimester, antepartum (HCC) (Primary Dx); 19 weeks gestation of (HCC); Nausea/vomiting in (HCC); Hypothyroidism, unspecified type Start: 03-12-2025 End: 03-12-2025 ambulatory HUSEYIN OROURKE Facility:[facility] Start: 03-07-2025 End: 03-08-2025 Refill Huseyin Orourke APRN.MANAGER OF SECURITY Work Phone: OB/Gynecology Comment on above: Refill Request Start: 02-05-2025 End: 02-05-2025 ambulatory NAOMY KOWALSKI Facility:[facility] Start: 01-29-2025 End: 01-29-2025 ambulatory SELF Facility:[facility] Start: 01-05-2025 End: 01-05-2025 ambulatory HUSEYIN OROURKE Facility:[facility] Start: 12-28-2024 End: 12-28-2024 Follow-up encounter Huseyin Orourke APRN.CNP Work Phone: OB/Gynecology Start: 12-17-2024 End: 12-17-2024 ambulatory SELF Facility:[facility] Start: 12-17-2024 End: 12-17-2024 Patient encounter procedure Huseyin Orourke APRN.CNP Work Phone: OB/Gynecology Comment on above: Encounter for superv ision of high risk in first trimester, antepartum (Primary Dx); 7 weeks gestation of ; with uncertain dates in first trimester; Nausea/vomiting in ; Hypothyroidism affecting in first trimester; History of depression; Screening for cervical cancer; Encounter for screening for human papillomavirus (HPV); Screen for STD (sexually transmitted disease); Constipation during in first trimester Start: 12-15-2024 End: 12-15-2024 Telephone encounter Huseyin Orourke APRN.CNP Work Phone: OB/Gynecology Comment on above: Appointment Start: 12-14-2024 End: 12-14-2024 ambulatory Huseyin Orourke APRN.CNP Work Phone: OB/Gynecology Comment on above: NIPT Start: 12-11-2024 End: 12-11-2024 ambulatory Huseyin Orourke APRN.CNP Work Phone: OB/Gynecology Comment on above: Nausea/vomiting in p regnancy (Primary Dx); 7 weeks gestation of Start: 12-11-2024 End: 12-11-2024 Telemedicine consultation with patient Huseyin Orourke APRVIET Work Phone: OB/Gynecology Start: 12-04-2024 End: 12-04-2024 Telephone encounter Huseyin Orourke APRN.CNP Work Phone: OB/Gynecology Comment on above: Patient Question (vo miting for 3 days ) Start: 12-04-2024 End: 12-04-2024 Emergency department patient visit Dr. Arvin Stafford DO -Emergency Department Work Phone: Start: 05-31-2021 End: 05-31-2021 Office outpatient new 30 minutes Carlene Lucas CNP Work Phone: [facility] Start: 05-10-2021 End: 05-10-2021 Nursing evaluation of patient and report Carlene Lucas JEAN PIERRE Work Phone: [facility] Start: 10-31-2018 End: 10-31-2018 Emergency department patient visit GWYN BARRAGAN [facility] Start: 10-25-2015 Patient encounter status Huseyin Orourke APRN.MANAGER OF SECURITY Work Phone: [facility] Procedures Date Procedure Procedure Detail Performing Clinician Start: 06-17-2025 RSV VACCINE, BIVALEN T (ABRYSVO) Kacy Garcia MD Work Phone: Start: 06-02-2025 Us preg uterus after 1st trimest 1/1st gestation Huseyin Orourke APRN.MANAGER OF SECURITY Work Phone: Start: 03-12-2025 Us preg uterus after 1st trimest 1/1st gestation Huseyin Orourke APRN.MANAGER OF SECURITY Work Phone: Start: 01-05-2025 Antibody screen NAOMY KOWALSKI Comment on above: Order Comment: Speci men Type: BLOOD SPECIMENOrdering Facility: [facility] Address: [address] [place] [address] Performed By: #### T SPN ####CC [facility] BLOOD BANKCLIA [id number] [place] [address] [place] Start: 12-17-2024 Us uterus l imited 1/> fetuses Huseyin Orourke APRN.MANAGER OF SECURITY Work Phone: Start: 12-04-2024 SARS-CoV-2, Influenz a & RSV (PCR) No Primary Care Physician Start: 12-04-2024 Urnls dip stick/tabl et reagent auto microscopy No Primary Care Physician Plan of Treatment Date Care Activity Detail Author Start: 2069 RSV Vaccine (1 - 1-dose 75+ series) RSV Vaccine (1 - 1-dose 75+ series) [facility] Start: 06-02-2035 Urine microalbumin profile DTaP,Tdap,Td Vaccine (2 - Td or Tdap) [facility] Start: 12-17-2029 Screening for malignant neoplasm of cervix Cervical Cancer Screening [facility] Start: 08-10-2025 End: 08-10-2025 Follow-up encounter 08/10/2025 1:00 PM [facility] [employer] BLOOD MANAGEMENT [address] [place] [address] Naomy Kowalski PA-C [address] [place], [place] [id number] 8 week follow-up BLOOD MANAGEMENT Comment on above: 8 week follow-up Start: 08-05-2025 End: 11-04-2025 CBC W Auto Differential panel - Blood COMPLETE BLOOD COUNT AND DIFFERENTIAL Lab Routine Maternal iron deficiency anemia complicating , third trimester (HCC) Expected: 08/05/2025 (Approximate), Expires: 11/04/2025 [facility] Comment on above: Expected: 08/05/2025 (Approximate), Expi res: 11/04/2025 Start: 08-05-2025 End: 11-04-2025 Cobalamin (Vitamin B12) [Mass/volume] in Serum or Plasma VITAMIN B12 Lab Routine Maternal iron deficiency anemia complicating , third trimester (HCC) Expected: 08/05/2025 (Approximate), Expires: 11/04/2025 [facility] Comment on above: Expected: 08/05/2025 (Approximate), Expi res: 11/04/2025 Start: 08-05-2025 End: 11-04-2025 Ferritin [Mass/volume] in Serum or Plasma FERRITIN Lab Routine Maternal iron deficiency anemia complicating , third trimester (HCC) Expected: 08/05/2025 (Approximate), Expires: 11/04/2025 [facility] Comment on above: Expected: 08/05/2025 (Approximate), Expi res: 11/04/2025 Start: 08-05-2025 End: 11-04-2025 Folate [Mass/volume] in Serum or Plasma FOLATE, SERUM Lab Routine Maternal iron deficiency anemia complicating , third trimester (HCC) Expected: 08/05/2025 (Approximate), Expires: 11/04/2025 [facility] Comment on above: Expected: 08/05/2025 (Approximate), Expi res: 11/04/2025 Start: 08-05-2025 End: 11-04-2025 Iron and Iron binding capacity panel - Serum or Plasma IRON AND TIBC Lab Routine Maternal iron deficiency anemia complicating , third trimester (HCC) Expected: 08/05/2025 (Approximate), Expires: 11/04/2025 [facility] Comment on above: Expected: 08/05/2025 (Approximate), Expi res: 11/04/2025 Start: 07-30-2025 End: 07-30-2025 Patient encounter procedure 07/30/2025 10:40 AM EDT Routine Office Visit OB/Gynecology [address] [place] [address] Delisa Cannon MD [address] [place] [address] OB OB/Gynecology Comment on above: OB Start: 07-22-2025 End: 07-22-2025 Patient encounter procedure 07/22/2025 10:40 AM EDT Routine Office Visit OB/Gynecology [address] [place] [address] Lucy Vargas MD [address] [place] [address] OB OB/Gynecology Comment on above: OB Start: 07-16-2025 End: 07-16-2025 Patient encounter procedure 07/16/2025 10:40 AM EDT Routine Office Visit OB/Gynecology [address] [place] [address] Lucy Vargas MD [address] [place] [address] OB OB/Gynecology Comment on above: OB Start: 07-08-2025 End: 07-08-2025 Patient encounter procedure 07/08/2025 10:40 AM EDT Routine Office Visit OB/Gynecology [address] [place] [address] Lucy Vargas MD [address] [place] [address] OB OB/Gynecology Comment on above: OB Start: 07-02-2025 End: 07-02-2025 Patient encounter procedure Maternal Medicine Comment on above: Growth Growth/OB Start: 06-25-2025 End: 06-25-2025 ambulatory 06/25/2025 1:30 PM EDT [facility] H[facility]Oncology [address] [place] [address] 2nd Hematology/Oncology Comment on above: 2nd Start: 06-23-2025 End: 06-23-2025 ambulatory 06/23/2025 10:00 AM EDT [facility] Hematology/Oncology [address] [place] [address] 2nd Hematology/Oncology Comment on above: 2nd Start: 06-21-2025 End: 06-21-2025 ambulatory 06/21/2025 1:30 PM EDT [facility] Hematology/Oncology [address] [place] [address] 2nd Hematology/Oncology Comment on above: 2nd Start: 06-17-2025 End: 06-17-2025 Patient encounter procedure 06/17/2025 10:50 AM EDT Routine Office Visit OB/Gynecology [address] [place] [address] Kacy Garcia MD [address] [place] [address] OB OB/Gynecology Comment on above: OB Start: 06-10-2025 End: 06-10-2025 Patient encounter procedure 06/10/2025 2:20 PM EDT [facility] BLOOD MANAGEMENT [address] [place] [address] Naomy Kowalski PA-C [address] [place], [place] [id number] Anemia BLOOD MANAGEMENT Comment on above: Anemia Start: 06-10-2025 End: 09-09-2025 Cobalamin (Vitamin B12) [Mass/volume] in Serum or Plasma VITAMIN B12 Lab Routine Maternal iron deficiency anemia complicating , third trimester (HCC) Expected: 06/10/2025 (Approximate), Expires: 09/09/2025 [facility] Comment on above: Expected: 06/10/2025 (Approximate), Expi res: 09/09/2025 Start: 06-10-2025 End: 09-09-2025 Ferritin [Mass/volume] in Serum or Plasma FERRITIN Lab Routine Maternal iron deficiency anemia complicating , third trimester (HCC) Expected: 06/10/2025 (Approximate), Expires: 09/09/2025 [facility] Comment on above: Expected: 06/10/2025 (Approximate), Expi res: 09/09/2025 Start: 06-10-2025 End: 09-09-2025 Folate [Mass/volume] in Serum or Plasma FOLATE, SERUM Lab Routine Maternal iron deficiency anemia complicating , third trimester (HCC) Expected: 06/10/2025 (Approximate), Expires: 09/09/2025 [facility] Comment on above: Expected: 06/10/2025 (Approximate), Expi res: 09/09/2025 Start: 06-10-2025 End: 09-09-2025 Iron and Iron binding capacity panel - Serum or Plasma IRON AND TIBC Lab Routine Maternal iron deficiency anemia complicating , third trimester (HCC) Expected: 06/10/2025 (Approximate), Expires: 09/09/2025 [facility] Work Phone: Comment on above: Expected: 06/10/2025 (Approximate), Expi res: 09/09/2025 Start: 06-07-2025 End: 09-06-2025 CBC W Auto Differential panel - Blood COMPLETE BLOOD COUNT AND DIFFERENTIAL Lab Routine Anemia complicating , third trimester (HCC) Expected: 06/07/2025, Expires: 09/06/2025 [facility] Work Phone: Comment on above: Expected: 06/07/2025, Expires: Start: 06-07-2025 Influenza vaccination [facility] Start: 06-07-2025 RSV Vaccine (1 - Risk 1-dose series) RSV Vaccine (1 - Risk 1-dose series) [facility] Start: 06-02-2025 End: 06-02-2025 Patient encounter procedure Maternal Medicine Comment on above: Growth Growth/OB Start: 06-02-2025 End: 06-02-2026 OBSTETRIC ULTRASOUND WHI OBSTETRIC ULTRASOUND [facility] Anc Imaging Routine Supervision of high risk in third trimester (HCC) Anemia complicating , third trimester (HCC) Hypothyroidism, unspecified type Excessive growth affecting management of in third trimester, single or unspecified fetus (HCC) Expected: 06/02/2025, Expires: 06/02/2026 [facility] Work Phone: Comment on above: Expected: 06/02/2025, Expires: Start: 05-20-2025 End: 05-20-2026 OBSTETRIC ULTRASOUND WHI OBSTETRIC ULTRASOUND [facility] Anc Imaging Routine Supervision of high risk in third trimester (HCC) 29 weeks gestation of (HCC) Anemia complicating , third trimester (HCC) Hypothyroidism, unspecified type Lyme disease, unspecified Expected: 05/20/2025, Expires: 05/20/2026 [facility] Work Phone: Comment on above: Expected: 05/20/2025, Expires: Start: 05-20-2025 End: 05-20-2025 Patient encounter procedure 05/20/2025 7:00 AM EDT Routine Office Visit OB/Gynecology [address] [place], [place] [id number] Huseyin Orourke APRN.MANAGER OF SECURITY [address] [place] [place] [address] OB OB/Gynecology Comment on above: OB Start: 05-09-2025 End: 08-08-2025 ANEMIA REFLEX PANEL ANEMIA REFLEX PANEL Lab Routine Encounter for supervision of normal first in third trimester (HCC) Expected: 05/09/2025, Expires: 08/08/2025 [facility] Comment on above: Expected: 05/09/2025, Expires: Start: 05-09-2025 End: 04-08-2026 GESTATIONAL GLUCOSE SCREEN, 1-HOUR, 50 GRAM, NON-FASTING GESTATIONAL GLUCOSE SCREEN, 1-HOUR, 50 GRAM, NON-FASTING Lab Routine Screening for diabetes mellitus Expected: 05/09/2025, Expires: 04/08/2026 [facility] Work Phone: Comment on above: Expected: 05/09/2025, Expires: Start: 05-09-2025 End: 04-08-2026 SYPHILIS TREPONEMAL W/REFLEX SYPHILIS TREPONEMAL W/REFLEX Lab Routine Encounter for supervision of normal first in third trimester (HCC) Expected: 05/09/2025, Expires: 04/08/2026 [facility] Comment on above: Expected: 05/09/2025, Expires: Start: 05-06-2025 End: 05-06-2025 Patient encounter procedure 05/06/2025 11:15 AM EDT Routine Office Visit OB/Gynecology [address] [place] [address] Leela Lincoln APRN.CN [address] [place] [address] Glucose/OB OB/Gynecology Comment on above: Glucose/OB Start: 05-06-2025 End: 05-06-2025 ambulatory 05/06/2025 11:00 AM EDT Results Only [facility] [address] [place] [address] Glucose/lab [facility] Comment on above: Glucose/lab Start: 04-08-2025 End: 04-08-2025 Patient encounter procedure 04/08/2025 11:20 AM EDT Routine Office Visit OB/Gynecology [address] [place] [address] Delisa Cannon MD [address] [place] [address] OB OB/Gynecology Comment on above: OB Start: 03-12-2025 End: 03-12-2025 Patient encounter procedure [facility]aternal [facility] Comment on above: anatomy OB Start: 03-12-2025 End: 06-11-2025 Thyrotropin [Units/volume] in Serum or Plasma THYROID STIMULATING HORMONE Lab Routine 19 weeks gestation of (HCC) Hypothyroidism, unspecified type Expected: 03/12/2025, Expires: 06/11/2025 [facility] Work Phone: Comment on above: Expected: 03/12/2025, Expires: Start: 01-29-2025 End: 01-29-2025 Patient encounter procedure 01/29/2025 1:10 PM EDT Routine Office Visit OB/Gynecology [address] [place] [address] Lucy Vargas MD [address] [place] [address] OB/Gynecology Comment on above: Start: 12-25-2024 End: 12-25-2024 Patient encounter procedure 12/25/2024 2:00 PM EDT Initial Office Visit OB/Gynecology [address] [place] [address] Huseyin Orourke APRN.MANAGER OF SECURITY [address] [place] [address] OB/Gynecology Comment on above: Start: 12-17-2024 End: 03-18-2025 ANEMIA REFLEX PANEL ANEMIA REFLEX PANEL Lab Routine Encounter for supervision of high risk in first trimester, antepartum with uncertain dates in first trimester Expected: 12/17/2024, Expires: 03/18/2025 [facility] Work Phone: Comment on above: Expected: 12/17/2024, Expires: Start: 12-17-2024 End: 03-18-2025 Chromosome 21 trisomy [Presence] in Blood or Tissue by Cytogenetics [id number] PLUS Lab Routine Encounter for supervision of high risk in first trimester, antepartum 7 weeks gestation of Expected: 12/17/2024, Expires: 03/18/2025 [facility] Comment on above: Expected: 12/17/2024, Expires: Start: 12-17-2024 End: 03-18-2025 Hemoglobin A1c in Blood HEMOGLOBIN A1C Lab Routine Encounter for supervision of high risk in first trimester, antepartum with uncertain dates in first trimester Expected: 12/17/2024, Expires: 03/18/2025 [facility] Comment on above: Expected: 12/17/2024, Expires: Start: 12-17-2024 End: 03-18-2025 Hepatitis B virus surface Ag [Presence] in Serum HEPATITIS B SURFACE ANTIGEN Lab Routine Encounter for supervision of high risk in first trimester, antepartum with uncertain dates in first trimester Expected: 12/17/2024, Expires: 03/18/2025 [facility] Comment on above: Expected: 12/17/2024, Expires: Start: 12-17-2024 End: 03-18-2025 Hepatitis C virus Ab [Presence] in Serum HEPATITIS C ANTIBODY IA WITH CONFIRMATION Lab Routine Encounter for supervision of high risk in first trimester, antepartum with uncertain dates in first trimester Expected: 12/17/2024, Expires: 03/18/2025 [facility] Comment on above: Expected: 12/17/2024, Expires: Start: 12-17-2024 End: 03-18-2025 HIV 1+2 Ab [Presence] in Serum or Plasma by Immunoassay HIV 1/2 COMBO WITH REFLEX TO DIFFERENTIATION Lab Routine Encounter for supervision of high risk in first trimester, antepartum with uncertain dates in first trimester Expected: 12/17/2024, Expires: 03/18/2025 [facility] Comment on above: Expected: 12/17/2024, Expires: Start: 12-17-2024 End: 12-17-2025 OBSTETRIC ULTRASOUND WHI OBSTETRIC ULTRASOUND WHI Anc Imaging Routine Encounter for supervision of high risk in first trimester, antepartum with uncertain dates in first trimester Expected: 12/17/2024, Expires: 12/17/2025 [facility] Comment on above: Expected: 12/17/2024, Expires: Start: 12-17-2024 End: 03-18-2025 RUBELLA IGG ANTIBODY RUBELLA IGG ANTIBODY Lab Routine Encounter for supervision of high risk in first trimester, antepartum with uncertain dates in first trimester Expected: 12/17/2024, Expires: 03/18/2025 [facility] Comment on above: Expected: 12/17/2024, Expires: Start: 12-17-2024 End: 03-18-2025 SYPHILIS TREPONEMAL W/REFLEX SYPHILIS TREPONEMAL W/REFLEX Lab Routine Encounter for supervision of high risk in first trimester, antepartum with uncertain dates in first trimester Expected: 12/17/2024, Expires: 03/18/2025 [facility] Comment on above: Expected: 12/17/2024, Expires: Start: 12-17-2024 End: 03-18-2025 Thyrotropin [Units/volume] in Serum or Plasma THYROID STIMULATING HORMONE Lab Routine Hypothyroidism affecting in first trimester Expected: 12/17/2024, Expires: 03/18/2025 [facility] Comment on above: Expected: 12/17/2024, Expires: Start: 12-17-2024 End: 03-18-2025 Thyroxine (T4) free [Mass/volume] in Serum or Plasma T4 FREE/FREE THYROXINE Lab Routine Hypothyroidism affecting in first trimester Expected: 12/17/2024, Expires: 03/18/2025 [facility] Comment on above: Expected: 12/17/2024, Expires: Start: 12-17-2024 End: 03-18-2025 TYPE + SCREEN TYPE + SCREEN Blood Bank Routine Encounter for supervision of high risk in first trimester, antepartum with uncertain dates in first trimester Expected: 12/17/2024, Expires: 03/18/2025 [facility] Comment on above: Expected: 12/17/2024, Expires: Start: 12-17-2024 End: 12-17-2024 Patient encounter procedure OB/Gynecology Comment on above: Start: 12-04-2024 Start: 06-07-2024 Covid-19 Vaccine ( season) Covid-19 Vaccine ( season) [facility] Start: 06-07-2024 Influenza vaccination Influenza Vaccine (#1) [facility] Start: 2021 HPV Vaccine (1 - 3-dose SCDM series) HPV Vaccine (1 - 3-dose SCDM series) [facility] Start: 05-31-2021 Cyanocobalamin vitamin b-12 VITAMIN B12 AND FOLATES (02103) [facility] Work Phone: Start: 05-31-2021 Assay of ferritin FERRITIN (25182) [facility] Work Phone: Start: 05-31-2021 Iron binding capacity IRON BINDING CAPACITY (TIBC) (67608) [facility] Work Phone: Start: 05-31-2021 Assay of iron IRON & TOTAL IRON BINDING CAPACITY (33614) [facility] Work Phone: Start: 05-31-2021 Provider Instructions for Treatment Follow up in 6 weeks [facility] Work Phone: Start: 05-10-2021 Procedure Education Eprescribed prescriptions (G8553) [facility] Work Phone: Start: 2015 Screening for malignant neoplasm of cervix Cervical Cancer Screening [facility] Start: 2013 Hepatitis B Vaccine (1 of 3 - 19+ 3-dose series) Hepatitis B Vaccine (1 of 3 - 19+ 3-dose series) [facility] Start: 2013 Urine microalbumin profile DTaP,Tdap,Td Vaccine (1 - Tdap) [facility] Start: 2012 Annual PCP Team Chronic Disease Visit Annual PCP Team Chronic Disease Visit [facility] Start: 2012 Anxiety Screening Anxiety Screening [facility] Start: 2012 Depression Screening Depression Screening [facility] Start: 2012 Hepatitis C screening Hepatitis C Screening [facility] Start: 2012 HIV screening HIV Screening [facility] Bacteria identified in Urine by Culture BACTERIAL CULTURE, URINE Microbiology Routine Encounter for supervision of high risk in first trimester, antepartum with uncertain dates in first trimester 12/17/2024 11:54 AM T [facility] Chlamydia trachomatis+Neisseria gonorrhoeae DNA [Presence] in Unspecified specimen by KYLIE with probe detection GONORRHEA/CHLAMYDIA NAAT Lab Routine Encounter for supervision of high risk in first trimester, antepartum Screen for STD (sexually transmitted disease) 12/17/2024 11:54 AM T [facility] PAP TEST PAP TEST Lab Rou nathaniel Encounter for supervision of high risk in first trimester, antepartum Screening for cervical cancer Encounter for screening for human papillomavirus (HPV) 12/17/2024 11:54 AM EDT [facility] Patient Education 1st Trimester [facility] Work Phone: Patient referral [facility] Work Phone: TRICHOMONAS VAGINALI S NAAT TRICHOMONAS VAGINALIS NAAT Lab Routine Encounter for supervision of high risk in first trimester, antepartum Screen for STD (sexually transmitted disease) 12/17/2024 11:54 AM T [facility] Work Phone: Immunizations Immunization Date Immunization Notes Care Provider Fa [facility] 06-17-2025 respiratory syncytia l virus (RSV) vaccine, bivalent (ABRYSVO) Kacy Garcia MD Work Phone: [facility] 06-02-2025 tetanus toxoid, reduced diphtheria toxoid, and acellular pertussis vaccine, adsorbed Lucy Vargas MD Work Phone: [facility] 10-07-2018 tetanus toxoid, adsorbed Carlene Lucas [facility] Work Phone: [facility] Work Phone: 10-25-2015 influenza, injectabl e, quadrivalent, contains preservative Huseyin Orourke APRN.MANAGER OF SECURITY Work Phone: [facility] Work Phone: 10-25-2015 influenza virus vaccine, unspecified formulation Huseyin Orourke APRN.MANAGER OF SECURITY Work Phone: [facility] 11-27-2012 measles, mumps and rubella virus vaccine Huseyin Orourke APRN.MANAGER OF SECURITY Work Phone: [facility] 08-14-2012 influenza virus vaccine, unspecified formulation Huseyin Orourke MANAGER OF SECURITY Work Phone: [facility] Payers Date Payer Category Payer Medicaid [employer] [address] [employer] [place] [id number] 2025 Medicaid [id number] 2024 Self-pay 2024 Worker's Compensation [id number] 1995 Unknown [id number] Unknown [facility] [place] [facility] Unknown [employer] [place] [id number] Unknown [id number] Unknown [id number] Unknown [id number] Social History Date Type Detail Facility Alcohol Use: Alcohol Use: [facility] Work Phone: Start: 05-08-2015 End: 12-17-2024 Caffeine Use Caffeine Use [facility] Work Phone: Comment on above: 1 daily Exercise History: Exercise History: [facility]; [facility] Work Phone: Start: 01-13-2013 End: 12-04-2024 Tobacco smoking status NHIS Never smoked tobacco [facility] Start: 01-13-2013 Tobacco use and exposure Smokeless tobacco non-user [facility] Start: 05-24-2022 End: 12-11-2024 Alcoholic beverage intake Current non-drinker of alcohol (finding) [facility] Start: 05-08-2015 End: 12-17-2024 Tobacco use panel [facility] Start: 1995 Sex assigned at Not on file [facility] Start: 12-15-2024 End: 06-10-2025 Alcoholic beverage intake Ex-drinker (finding) [facility] Start: 12-15-2024 Education 13 [facility] Start: 11-09-2024 [facility] Start: 09-07-2012 National Score (1-100), lower number is lower risk 76 [facility] Start: 1995 Sex Assigned At Female [facility] Goals Date Patient Goal Desired Activity /State Personal health goal Clinical Notes 12-04-2024 to 07-22-2025 Quick Notes - Kacy Garcia MD - 06/17/2025 10:55 AM EDTPrenatal Quick Notes - Kacy Garcia MD - 06/17/2025 10:55 AM EDTPatient InstructionsPatient InstructionsPatient Instructions Note Date & Type Note Facility 07-22-2025 Note HNO ID: [id number] Author: RACHEL TRIVEDI MA Service: ? Author Type: Enrollment Eligibility Representative Type: Progress Notes Filed: 07/22/2025 08:31 Note Text: POPULATION HEALTH NAVIGATION OUTREACH Action/ 2nd attempt: Called and left message to call back. Reason for Outreach Medicaid OB/Peds Care Gaps due: N/A Patient Contacted: Unable or unnecessary to reach patient: Unable to reach patient Left message Navigation Signature: Rachel Benavidez MA July 22, 2025 8:30 AM [facility] 07-20-2025 Note HNO ID: [id number] Author: RACHEL TRIVEDI MA Service: ? Author Type: Enrollment Eligibility Representative Type: Progress Notes Filed: 07/20/2025 13:55 Note Text: POPULATION HEALTH NAVIGATION OUTREACH Action/I 1st attempt: Called and left message to call back to discuss lining caser. MC message sent. Reason for Outreach Medicaid OB/Peds Care Gaps due: N/A Patient Contacted: Unable or unnecessary to reach patient: Unable to reach patient Left message [employer] message sent Navigation Signature: Rachel Benavidez MA July 20, 2025 12:22 PM [facility] 07-20-2025 Note Patient Outreach (NE TNAV) HILARY HORTA ([id number]) 1995 F Date Time Provider Department 07/20/25 RACHEL TRIVEDI During your visit today, we recorded the following information about you: Rachel Trivedi MA 07/20/2025 1:55 PM Signed POPULATION HEALTH NAVIGATION OUTREACH Action/ 1st attempt: Called and left message to call back to discuss lining caser. MC message sent. Reason for Outreach Medicaid OB/Peds Care Gaps due: N/A Patient Contacted: Unable or unnecessary to reach patient: Unable to reach patient Left message [employer] message sent Navigation Signature: Rachel Benavidez MA July 20, 2025 12:22 PM Rachel Trivedi MA 07/22/2025 8:31 AM Signed POPULATION HEALTH NAVIGATION OUTREACH Action/ 2nd attempt: Called and left message to call back. Reason for Outreach Medicaid OB/Peds Care Gaps due: N/A Patient Contacted: Unable or unnecessary to reach patient: Unable to reach patient Left message Navigation Signature: Rachel Benavidez MA July 22, 2025 8:30 AM Allergies As of Date: 07/20/2025 (No Known Allergies) Date Reviewed: 07/16/2025 Reviewed by: Lucy Vargas MD - Fully Assessed Reason for Visit: Population Health Navigation Outreach [3910] Cmt: to PCP/OB Prescriptions as of 07/22/2025 - ondansetron orally disintegrating (ZOFRAN ODT) 4 mg disintegrating tablet Take 1 tablet by mouth every 8 hours as needed for nausea/vomiting. - folic acid 1 mg tablet Take 1 tablet by mouth once daily. - aspirin, enteric coated (ECOTRIN LOW STRENGTH) 81 mg EC tablet Take 1 tablet by mouth once daily. - VIT 10-IRON FUM-FOLIC ORAL Take by mouth. Problem List As Of Date 07/20/2025 Noted Resolved Rubella non-immune status [Z78.9] 08/15/2012 07/08/2025 Chlamydia trachomatis infection of lower genito*08/18/2012 12/17/2024 Nausea/vomiting in (HCC) [O21.9] 12/11/2024 05/20/2025 Hypothyroidism affecting in third tri*12/17/2024 History of depression [Z87.59, Z86.5*12/17/2024 Constipation during in first trimeste*12/17/2024 Lyme disease, unspecified [A69.20] 05/06/2025 Supervision of high risk in third tri*05/20/2025 Maternal iron deficiency anemia complicating pr*06/10/2025 Encounter Status:Closed by RACHEL TRIVEDI on 07/20/25 [facility] 06-17-2025 Progress note Formatting of t his note might be different from the original. KJ - S: Hilary denies LOF, contractions or vaginal bleeding. O: 33w3d, see flow sheet SENSITIVE EXAM: Sensitive exam not performed. A/P: Assessment & Plan Supervision of high risk in third trimester (HCC) Anemia complicating , third trimester (HCC) Continue iron infusions 33 weeks gestation of (HCC) Orders: RSV VACCINE, BIVALENT (ABRYSVO) Growth US scheduled Reviewed PTL & FM precautions Kacy Garcia MD [facility] 06-17-2025 Miscellaneous Notes KJ - S: Hilary denies LOF, contractions or vaginal bleeding. O: 33w3d, see flow sheet SENSITIVE EXAM: Sensitive exam not performed. A/P: Assessment & Plan Supervision of high risk in third trimester (HCC) Anemia complicating , third trimester (HCC) Continue iron infusions 33 weeks gestation of (HCC) Orders: RSV VACCINE, BIVALENT (ABRYSVO) Growth US scheduled Reviewed PTL & FM precautions Kacy Garcia MD documented in this encounter [facility] 06-17-2025 Instructions Josh Villegas LPN - 06/17/2025 10:42 AM EDT SEQUENTIAL SCREENINGS The [facility] offers sequential screenings for women who are interested in screenings for chromosomal abnormalities and certain defects during a . The sequential screen combines ultrasound and blood tests to determine the risk of chromosomal abnormalities, including Down's Syndrome (Trisomy 21) and Trisomy 18, as well as open neural tube defects including spina bifida. Ultrasound examination is performed between 11 weeks and 13 weeks gestational age. Blood tests are drawn after the ultrasound and again later in the between 15 and 21 weeks gestational age. Please let your physician know if you are interested in this testing. It will require an appointment with our automotive lube technician. This is not an ultrasound performed by a physician in our office during a routine visit. SIGNS AND SYMPTOMS OF LABOR 1. Contractions every 10 minutes or more often 2. Clear, pink, or brownish fluid (water) leaking from vagina 3. Feeling that baby is pushing down, pressure 4. Low, dull backache 5. Cramps that feel like a period 6. Cramps with or without diarrhea If you notice any of the above symptoms, contact our office at [phone] and ask to speak with a nurse. After hours, you can call doctors registry at [phone] OR call [facility] at [phone] and ask to have the doctor production mechanic paged. If you consider this an emergency, dial 8-1-8 or go to your nearest emergency department. NEED HELP? Are you dealing with a violent or abusive relationship? Are you a victim of rape or sexual assult? Call [facility] ([place]) 24 hour Crisis Hotline: 317.622.4325 or 921-389-8995. MANUAL Your Guide to a Healthy manual is now on-line. Visit [email or web address] to download your free copy documented in this encounter [facility] 06-17-2025 Telephone encounter Note Refill request received via [employer]. Patient 33w3d, last seen 06/02, has appointment today with you. Patient comment: Once a day Ananya Vaz RN [facility] 06-17-2025 Miscellaneous Notes Refill request received via [employer]. Patient 33w3d, last seen 06/02, has appointment today with you. Patient comment: Once a day Ananya Vaz RN documented in this encounter [facility] 06-11-2025 Note HNO ID: [id number] Author: ?, ?, ? Service: ? Author Type: ? Type: Progress Notes Filed: 06/11/2025 13:44 Note Text: 1ST attempt. Message left for patient to contact office and schedule 1 hour infusions on 2nd floor. 2nd IRON SUCROSE/1-4/ORDERING PROV DEX* [facility] 06-10-2025 Instructions Naomy Kowalski PA-C - 06/10/2025 2:43 PM EDT Images from the original note were not included. Summary of today's visit: - You have iron deficiency anemia and require IV iron infusions. - We are in the process of arranging IV iron infusions for you at [place] [facility]. Once the clinic has processed the referral, someone will contact you to schedule appointments. Insurance preauthorization may be required and can take 7 - 14 days. Please call the infusion center directly at [phone] to schedule an appointment if you don't receive a call within a week. - We need new iron labs for insurance approval. Please go to any [facility] lab in the next few days to have iron labs completed. We will also check Vitamin B12 and folate labs. - I will send you a [employer] message once I have received and reviewed the results to discuss results and next steps, such as starting additional supplements. Details of your ordered iron infusion: IV iron, Venofer (iron sucrose) 200 mg x 4 doses has been ordered. Each treatment will last about 15-30 minutes. The first infusion may take longer due to observation period after receiving the iron infusion. There are no restrictions on eating or drinking, rather it is recommended that you eat and drink prior to each appointment. Side effects from iron infusion are rare but may include temporary metallic taste and low blood pressure. It is very rare to have flu-like symptoms for 4-6 hours after treatment. Report any side effects to the infusion nurses while you are at the infusion center. If you experience side effects after returning home, contact your provider for further instructions. If you experience dizziness, lightheadedness, fainting, shortness of breath or any other symptoms that are concerning to you, recommend to call 911 or proceed to the nearest emergency department for further evaluation and management. We will follow-up with repeat labs and virtual visit about 4-6 weeks after you have completed the iron infusions to monitor your response to the iron infusions and determine if further evaluation or management is needed. Please make sure to have your labs completed a few days prior to the appointment to ensure results have finalized. See below for more information regarding iron deficiency anemia, IV Iron infusions and Iron Sucrose (Venofer). Please let me know if you have any questions. Anemia During You may have anemia during if a complete blood count (CBC) shows that your red blood cells, which carry oxygen through your body, are low. This can make you feel fatigued, dizzy, cold and out of breath. In most cases of anemia during , tweaks to your diet can put you on the right path. Overview What is anemia during ? Anemia is when you don t have enough red blood cells to carry oxygen throughout your body. When your body doesn t get enough oxygen from your blood, it can t function properly. A person who has anemia during is considered anemic. The red blood cells (RBCs) contain an important protein called hemoglobin. This protein holds oxygen and helps your red blood cells carry oxygen from your lungs to your body. It also helps carry carbon dioxide from your body to your lungs so you can breathe it out. To produce RBCs and hemoglobin, your body needs a consistent supply of iron and vitamins. Without that supply, your body won t produce enough hemoglobin to properly carry oxygen to your organs. It s common for women to become anemic during because they don t have enough iron and other vitamins. What are the types of anemia affecting women? There are more than 400 types of anemia. Some are more common during , including: Iron-deficiency anemia, from a lack of iron. Folate-deficiency anemia, from a lack of folic acid. Vitamin B12 deficiency anemia, from a lack of vitamin B12. Who is most likely to have anemia during ? Throughout , the amount of blood in your body increases by 20% to 30%. That means your body needs more iron for more red blood cells. You may be at higher risk for anemia during if you are: with multiples. Not consuming enough iron. Having hmeh-ap-ahvn pregnancies with minimal time between. Experiencing a heavy menstrual flow before . Vomiting often because of morning sickness. Is it normal to be anemic during ? Yes. Because blood volume increases during , mild anemia is normal. Iron deficiency is common in , with up to 52% of women in developing countries not getting enough iron. Severe anemia is not typical. Both mild and severe anemia, however, require treatment to protect the health of you and the fetus. How does anemia affect the baby during ? The developing fetus relies on you to get enough iron, vitamin B12 and folic acid. Anemia can affect the growth of the fetus, especially during the first trimester. If anemia goes untreated, your baby is at higher risk of having anemia after , which can lead to developmental problems. Also, anemia increases the risk of delivering your baby early and having a low-weight baby. Can anemia during cause miscarriage? No. Anemia during doesn t directly cause miscarriage, but severe anemia can cause complications. Symptoms and Causes What causes anemia during ? itself is a cause of anemia because of the increase in blood volume. Other causes of anemia during include not consuming enough iron, vitamin B12 or folic acid. Other common causes of anemia can also cause anemia during : Certain diseases, including sickle cell anemia and thalassemia. Donating blood. Heavy menstrual flow (before ). Ulcers and polyps. What are the symptoms of anemia during ? You may not notice any symptoms of mild anemia at first. Over time, you may feel: Fatigue. Cold. Shortness of breath. Other symptoms include: Dizziness or weakness. Fast heartbeat. Headache. Pale, dry or easily bruised skin. Sore tongue. Unintended movement in the lower leg (restless legs syndrome). Diagnosis and Tests How is anemia during diagnosed? A blood test called a complete blood count (CBC) can diagnose anemia. This blood test is often done at one of your first appointments. Your healthcare provider uses the CBC to analyze: How many red blood cells you have, their size and shape (which can indicate certain conditions like sickle cell anemia). How much iron your body has stored. If you are low in vitamins B12 and B9. What is considered severe anemia during ? Severe anemia is when results of the CBC show hemoglobin that s 6.5 to 7.9 grams per deciliter (g/dL). If your results show you have severe anemia, your provider may do a blood transfusion, most likely in an outpatient setting. A blood transfusion will give you a healthy amount of red blood cells. Management and Treatment How is anemia treated in ? Treatment for anemia during depends on the severity. If you have: Mild to moderate anemia: Your provider will usually treat it with a daily vitamin or iron supplement. This gives your body healthy amounts of iron, vitamin B12 and folic acid. Severe anemia: You may need a blood transfusion. How can I treat anemia at home while ? The best way to treat the most common types of anemia is to make sure you re getting enough iron, B12 and folic acid. Take a vitamin every day. Talk to your healthcare provider about which vitamin they recommend. Diet changes can help, too. Eat more foods that are high in iron like spinach, lean beef and turkey. Foods that are high in vitamins that help your body absorb iron (like vitamin C) are important as well, including citrus fruits, tomatoes and peppers. How soon after treatment for anemia during will I notice a change? If you have iron-deficiency, [id number] or folate-deficiency anemia, you should begin to feel better within a few days of taking a supplement. If you don t notice a change, talk to your provider. What does untreated anemia do to the body? Untreated anemia can get worse over time. Having too little oxygen in the blood can damage your organs. It also forces the heart to work harder, increasing the risk of: Arrhythmia (irregular heartbeat). Enlarged heart. Heart failure. Prevention How can I prevent anemia during ? The best thing you can do for anemia prevention is to eat at least 30 milligrams (three servings) of iron each day. If you can t get that much iron in your diet, talk to your provider about taking an iron supplement. You should also take a vitamin daily. If possible, you should start taking vitamins before you get . Some vitamins don t have enough iron in them. So, talk to your healthcare provider to determine which type of vitamin is best for you. Keep in mind that you can do all the right things and still get mild anemia during . That s because of the natural increase in blood volume. If you feel tired, dizzy or have any other symptoms, talk to your provider. [place] / Prognosis What is the outlook for someone with anemia during ? If treated, the outlook for someone with anemia during is very good. You can easily treat this condition with supplements and minor diet adjustments. After you give , your blood volume and plasma levels should go back to normal. When should I worry about anemia during ? Talk to your provider if you experience signs of anemia: Dizziness. Headaches. Fast heartbeat. Pale skin. Sore tongue. Unintended movement in your lower legs. If you re worried, ask your provider about testing for anemia and what you can do to maintain healthy red blood cell levels throughout your . How do I take care of myself when I have anemia during ? The best way to care for yourself when you have anemia is to try and eat a healthy, iron-rich diet. Get plenty of rest and drink lots of fluids. Take a vitamin and/or iron supplement. Talk to your provider about the best supplement for you. A note from [facility] You may be slightly anemic during because blood volume increases by 20% to 30%. Keeping your diet rich in iron, vitamin C and B vitamins helps correct and prevent anemia. Taking a daily vitamin can help, too. Talk to your provider about your risk of anemia during and any concerns you may have. Information obtained from: [facility] ([email or web address] [email or web address]/[email or web address]). References Arabella-Henry Danielle MM. The impact of maternal iron deficiency and iron deficiency anemia on child's health (https://www.ncbi.nlm.nih.gov/pmc /articles/VNM9337528/). [place] Med J. 2015;36(2):146-149. Accessed 03/01/2022. [place] [employer]. Peptic Ulcer Disease (https://gi.org/topics/peptic-ulc er-disease/). Accessed 03/01/2022. [place] Association. Anemia During (https://americanpregnancy.org/he althy-/-concern s/nxhmgh-mrkhqn-igykrquyx/). Accessed 03/01/2022. [place] Society [employer] Hematology. Anemia and (https://www.hematology.org/educa tion/patients/anemia/). Accessed 03/01/2022. Roberta Huerta. Chronic Anemia (https://www.ncbi.nlm.nih.gov/maldonado ks/SPV948006/). [Updated 2020May 17]. In: [employer] [Internet]. [facility]): [employer]; 2020. Accessed 03/01/2022. [employer]. Anemia (https://www.marchofdimes.org/com plications/anemia.aspx). Accessed 03/01/2022. National [place] of Diabetes and Digestive and Kidney Diseases. Symptoms & Causes of Colon Polyps (https://www.niddk.nih.gov/health -information/digestive-diseases/c olon-polyps/symptoms-causes). Accessed 03/01/2022. Iron-Deficiency Anemia Iron-deficiency anemia is a common blood disorder that affects your red blood cells. Symptoms tend to develop over time and may include fatigue, shortness of breath or a racing heart rate. Healthcare providers treat iron-deficiency anemia with iron supplements or infusions and by addressing any underlying health conditions. Overview Iron-deficiency anemia happens when there aren t enough healthy red blood cells to carry oxygen throughout your body. What is iron-deficiency anemia? Iron-deficiency anemia is a common blood disorder that affects your red blood cells. It s the most common form of anemia. It happens when there s a lack of iron in your blood, usually caused by bleeding. When you don t have enough iron, your bone marrow can t make hemoglobin, the molecule in your red blood cells that carries oxygen in your blood. And when you don t have enough hemoglobin, your blood can t carry oxygen throughout your body. As a result, you might feel tired. You may notice pale skin and cold hands and feet. Iron-deficiency anemia can also make you feel dizzy or lightheaded. Occasionally, it can cause chest pain, a fast heartbeat and shortness of breath. Or it can cause you to crave non-food items like ice, dirt or paper. These are all signs of iron-deficiency anemia. The good news is that treatment can help iron-deficiency anemia. Your healthcare provider can design a plan tailored to your needs. Stages of iron-deficiency anemia Normally, your body absorbs iron from the foods you eat. Your body stores iron so it s available to make hemoglobin. Iron-deficiency anemia develops when your body uses the iron stores faster than they can be replaced, or when the flow of iron into your system slows. This occurs in three stages: First stage. Iron stores decrease. Your low iron supply hasn t affected your red blood cells yet. Second stage. When iron stores are low, your body alters the way it processes red blood cells. Your bone marrow makes red blood cells without enough hemoglobin. Third stage. Hemoglobin drops below the normal range. You may develop signs of iron-deficiency anemia. Symptoms and Causes What are the symptoms of iron-deficiency anemia? Iron-deficiency anemia symptoms usually start out mild but worsen over time. They can include: Fatigue Headaches Irritability Muscle cramps Pallor (pale skin) Pica Shortness of breath (dyspnea) Sore tongue Spoon-shaped fingernails and toenails (koilonychia) Tachycardia (fast heart rate) What causes iron-deficiency anemia? Causes of iron-deficiency anemia may include: Blood loss from your period or from gastrointestinal conditions like esophageal reflux disease, ulcerative colitis or Crohn s disease Malabsorption, in which iron can no longer be absorbed through your stomach (This is more common in people with celiac disease or in those who ve had weight loss surgery.) Not getting enough iron in the foods you eat Risk factors of iron-deficiency anemia Statistically, you re more likely to develop iron-deficiency anemia if you: Are or have recently given Breastfeed Donate blood frequently Have a history of major surgery (especially gastrointestinal or weight loss surgery) Menstruate (especially if you have heavy periods) What are the complications of this condition? Severe or untreated iron-deficiency anemia can lead to complications like: Brain fog Growth or developmental delays (in children) Heart conditions like enlarged heart or heart failure Restless legs syndrome Diagnosis and Tests How is iron-deficiency anemia diagnosed? Healthcare providers use blood tests to diagnose iron-deficiency anemia. In addition to measuring iron levels, they check your levels of ferritin and total iron-binding capacity (TIBC) to confirm that you have a deficiency. Your healthcare provider may run different lab tests depending on your situation. Management and Treatment How is iron-deficiency anemia treated? Healthcare providers use iron supplementation or replacement to treat iron-deficiency anemia. They do this with: Oral iron supplements: Capsules or tablets that you take by mouth Iron infusions: Iron that you receive intravenously (through a vein) Your healthcare provider can determine which type of iron-deficiency anemia treatment is right for you. Most importantly, they ll also try to figure out why you re low in iron so they can treat the underlying cause. Side effects of treatment Iron supplementation might cause a metallic taste in your mouth or gastrointestinal side effects like: Constipation Dark bowel movements Diarrhea Nausea and vomiting Tell your healthcare provider if you develop these side effects. They may be able to reduce them by adjusting your iron dosage or regimen. How soon after treatment will I feel better? It depends on the treatment you receive and how low your iron was to begin with. People who take iron supplements may notice a difference in about two to three weeks. If you have iron infusions, you might start to feel better a little sooner. Prevention Can iron-deficiency anemia be prevented? Yes, you may be able to prevent iron-deficiency anemia if it s detected and treated early enough. If you ve already developed iron-deficiency anemia, a healthcare provider can easily correct the condition with treatment. [place] / Prognosis What s the outlook for people with iron-deficiency anemia? The outlook is good with treatment, but your healthcare provider will need to address any underlying conditions that cause iron-deficiency anemia. Iron supplementation is only a temporary fix because it doesn t address the actual cause. Suddenly becoming iron-deficient might point to conditions like stomach ulcers or colon polyps. In some cases, it can be a sign of gastrointestinal cancer. It s important to figure out why you re iron-deficient so you can get the right treatment. How do I take care of myself? Here are some ways to make sure you re getting enough iron: Ask your healthcare provider about testing for iron. Eat iron-rich foods like beans, red meat, beef or chicken livers and dark leafy greens. See your provider for regular blood tests. Talk to your provider if you have conditions that cause blood loss (like heavy menstrual periods or gastrointestinal disorders). What should I eat with iron-deficiency anemia? You can increase your body s iron stores by eating an iron-rich diet. Here are some foods to consider: Animal proteins: Beef, poultry, eggs, liver and fish Breads and cereals: Whole wheat bread, enriched white bread, rye bread, bran cereals and cereals with wheat Fruits: Figs, dates and raisins Legumes: Peas, beans, tofu and tempeh Vegetables: Spinach, broccoli, string beans, dark leafy greens, potatoes, cabbage and tomatoes Can I get rid of iron-deficiency anemia naturally? Eating fortified, iron-rich foods is always a good idea. But it won t necessarily keep you from getting iron-deficiency anemia. If you have extremely low iron, you ll likely need to see a healthcare provider for recommendations regarding iron supplements or iron infusions. I follow a vegan or vegetarian diet. What should I do to boost my iron intake? If you follow a vegan or vegetarian diet, look for iron-fortified breads and cereals. There are several non-meat options for boosting your iron intake, like beans, tofu, dried fruits and dark leafy greens. You can also try iron supplements. Always talk to your healthcare provider before adding any supplement to your regimen. When should I see my healthcare provider? You should see your healthcare provider regularly so they can monitor your iron levels and your overall health. You might see your healthcare provider every three months for a year or longer if you re being treated for iron-deficiency anemia. You may also need to see another specialist like a certified pediatric nurse practitioner or sales solutions representative if bleeding is determined to be the cause. What questions should I ask my healthcare provider? If you ve received an iron-deficiency anemia diagnosis, here are some questions you might want to ask your healthcare provider: What can you tell me about the iron levels in my blood? How severe is my condition? Do I need to see another specialist? What type of treatment will I need? How long will I need iron supplementation? What side effects should I expect? When will I start to feel better? A note from [facility] We all have days when our responsibilities outweigh the amount of energy we have. But if you have iron-deficiency anemia, you might not be able to shake those feelings of fatigue. Tell your healthcare provider if you re tired all the time. They can run tests to determine a cause and recommend appropriate treatment. Information obtained from [facility] (https://my.[facility]/ ealth/diseases/89173-nrrj-lxfevtc ncy-anemia) References [place] Society [employer] Hematology. Iron (https://www.hematology.org/educa tion/patients/anemia/iron-deficie ncy)- (https://www.hematology.org/educa tion/patients/anemia/iron-deficie ncy)Deficiency Anemia (https://www.hematology.org/educa tion/patients/anemia/iron-deficie ncy). (https://www.hematology.org/educa tion/patients/anemia/iron-deficie ncy) Accessed 09/16/2024. [employer] Manual, Professional Version. Iron Deficiency Anemia (https://www.[employer]/pro fessional/cprkklswdv-xor-lfyohyfr /sqnpfav-rsgwpp-za-deficient-eryt hropoiesis/wsvl-uixkliymlo-djmzfn ). (https://www.[employer]/pro fessional/yzffupapdr-aic-aqutljpl /lafwrgr-zlmfep-ye-deficient-eryt hropoiesis/gzas-uxzrhptjlg-akeuoa ) Last reviewed 03/2023. Accessed 09/16/2024. National Heart, Lung, and Blood [place] Iron (https://www.nhlbi.nih.gov/health /anemia/wtss-wgtrrdrvzj-hwzxpz)- (https://www.nhlbi.nih.gov/health /anemia/wjcj-tealnpxpti-rgosor)De ficiency Anemia (https://www.nhlbi.nih.gov/health /anemia/uihd-yzlwzpdgvg-fwwliv). (https://www.nhlbi.nih.gov/health /anemia/jvcb-ezamqmnggx-bksaid) Last updated 12/28/2021. Accessed 09/16/2024. Clara Dumas. Iron Supplementation (https://www.ncbi.nlm.nih.gov/maldonado ks/CSB133366/). (https://www.ncbi.nlm.nih.gov/maldonado ks/TSC452667/) In: [employer] [Internet]. [facility]): [employer]; 2023-. Accessed 09/16/2024. Iron Infusion Iron is one of the minerals in the human body. If you don t have enough iron, your body can t make hemoglobin, and you may develop anemia. One way of treating anemia is with intravenous iron, or an iron infusion, which is delivered into a vein through a needle to increase the levels of iron and hemoglobin in your body. Overview If you don t have enough iron in your body, an iron infusion can add iron through your vein. What is an iron infusion? An iron infusion is a way to receive iron through a small catheter in your vein. Intravenous (IV) iron supplementation is another name for this. A healthcare provider performs this procedure in a medical office or clinic. How common is an iron infusion? Getting iron through an infusion isn t as common as getting oral (by mouth) iron. Healthcare providers prescribe oral iron supplements first. That works for many people, but some people need to receive iron through an IV if their iron levels are very low. Why is an iron infusion done? People usually receive IV iron infusions because they can t take oral (by mouth) iron. These include people who: Have bleeding in their gastrointestinal tract (gut) and need to replace iron quickly. (Your body absorbs IV iron more rapidly than iron you swallow.) Have inflammatory bowel disease (diseases of the intestines that cause pain, diarrhea and weight loss), and can t take oral iron because it upsets their gastrointestinal tract. Are on dialysis and often lose blood during dialysis. In addition, these people are usually taking an erythropoietin-stimulating agent (CAROLINE) and may need extra iron. Have iron-deficiency anemia and are having high blood loss surgery (> 500 milliliters) within the next two months and need to replace iron quickly. Have celiac disease (gluten intolerance). Have cancer and anemia and are taking an CAROLINE. Have tried oral iron, but it didn t work well for them. Have a vascular condition that makes them lose a lot of blood. Need to increase their iron level quickly because of or severe anemia. What iron level requires an iron infusion? It depends on the reason you re taking it. Different conditions require different iron levels. A healthcare provider may give you an IV iron infusion sooner for one condition than another. How many iron infusions do you need? You may only need one dose of some iron infusions. With others, you ll need one or two doses over the course of several weeks until your iron level is where it should be. It can take two months to fix your iron level and correct anemia. Procedure Details What happens before an iron infusion? A healthcare provider will decide how much iron you need. They can calculate the dose you need based on your weight and how much hemoglobin you have. Be sure to tell your provider about: Your medical conditions. Allergies you have. Medications you take. Supplements you take without a prescription. What happens during an iron infusion? During an iron infusion, a provider will: Clean the area where the IV will go into the skin on your arm or hand. Put a needle into the vein they select. The needle has a plastic IV tube on one end to use later. Tape the IV to your arm so it doesn t move around. Hang the fluid bag on an IV stand. Start a machine that pumps the fluid into your vein. How long does an iron infusion take? An IV iron infusion can take 15 to 30 minutes. Depending on the type and amount of iron, infusions times can be longer. What should I expect after an iron infusion? A healthcare provider will monitor you for 30 minutes or more after your iron infusion. They do this to make sure you don t have a bad reaction. How quickly does an iron infusion work? It depends on your situation. Normally, it may take several days to a week after you start your iron supplement before you start to feel better. Continue to watch your symptoms and take note of side effects the iron infusion might cause. If you have any questions or concerns, talk to your healthcare provider. Risks / Benefits What are the advantages of an iron infusion? An iron infusion quickly brings your iron level up.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 vaccination of Tdap. Patient denies an allergy to latex: yes Patient denies a severe (life-threatening) allergy to a previous dose of Tdap, DTP, DTaP, DT or Td vaccine. Yes Patient denies history of epilepsy or neurological problems: Yes Patient is afebrile and denies being moderately or severely ill: Yes Patient denies history of Guillain-Lodi Syndrome (a severe paralytic illness): Yes Tdap Adacel injection was given without incident. See immunizations for details of immunizations administered today. VIS sheet provided: Yes Provider Alicia was present in office at time of injection. Elvia Blount MA [facility] 06-02-2025 History of Present illness Narrative Patient identified by name and date of . Hilary Horta presents today for a vaccination of Tdap. Patient denies an allergy to latex: yes Patient denies a severe (life-threatening) allergy to a previous dose of Tdap, DTP, DTaP, DT or Td vaccine. Yes Patient denies history of epilepsy or neurological problems: Yes Patient is afebrile and denies being moderately or severely ill: Yes Patient denies history of Guillain-Lodi Syndrome (a severe paralytic illness): Yes Tdap Adacel injection was given without incident. See immunizations for details of immunizations administered today. VIS sheet provided: Yes Provider Alicia was present in office at time of injection. Elvia Blount MA documented in this encounter [facility] 06-02-2025 Instructions Elvia Blount MA - 06/02/2025 2:51 PM EDT SEQUENTIAL SCREENINGS The [facility] offers sequential screenings for women who are interested in screenings for chromosomal abnormalities and certain defects during a . The sequential screen combines ultrasound and blood tests to determine the risk of chromosomal abnormalities, including Down's Syndrome (Trisomy 21) and Trisomy 18, as well as open neural tube defects including spina bifida. Ultrasound examination is performed between 11 weeks and 13 weeks gestational age. Blood tests are drawn after the ultrasound and again later in the between 15 and 21 weeks gestational age. Please let your physician know if you are interested in this testing. It will require an appointment with our automotive lube technician. This is not an ultrasound performed by a physician in our office during a routine visit. SIGNS AND SYMPTOMS OF LABOR 1. Contractions every 10 minutes or more often 2. Clear, pink, or brownish fluid (water) leaking from vagina 3. Feeling that baby is pushing down, pressure 4. Low, dull backache 5. Cramps that feel like a period 6. Cramps with or without diarrhea If you notice any of the above symptoms, contact our office at [phone] and ask to speak with a nurse. After hours, you can call doctors registry at [phone] OR call [facility] at [phone] and ask to have the doctor production mechanic paged. If you consider this an emergency, dial 0 or go to your nearest emergency department. NEED HELP? Are you dealing with a violent or abusive relationship? Are you a victim of rape or sexual assult? Call [facility] ([place]) 24 hour Crisis Hotline: 838.641.7807 or 612-331-9742. MANUAL Your Guide to a Healthy manual is now on-line. Visit [email or web address] to download your free copy documented in this encounter [facility] 05-20-2025 Progress note Formatting of t his note might be different from the original. EH - S: Hilary is a 29 year old female who presents at 29w3d for a routine visit. Feeling movement. Denies headache, visual changes, chest pain, shortness of breath, vaginal bleeding, leakage of fluid, or dysuria. Feeling well, no complaints. O: See flow sheet Gen: No apparent distress Abd: Gravid, nontender, S=D ASSESSMENT/PLAN: 1. Supervision of high risk in third trimester ([facility]) - ICD9: V23.9, ICD10: O09.93 (primary diagnosis) - Continue LDA and PNV 2. 29 weeks gestation of ([facility]) - ICD9: V22.2, ICD10: Z3A.29 - 28 week labs reviewed 3. Anemia complicating , third trimester ([facility]) - ICD9: 648.23, 285.9, ICD10: O99.013 - Cannot tolerate oral iron, planning for iron infusions - Has been increasing iron rich foods - 9.8 on 05/06 4. Hypothyroidism, unspecified type - ICD9: 244.9, ICD10: E03.9 - TSH normal as of 05/06 5. Lyme disease, unspecified - ICD9: 088.81, ICD10: A69.20 - Finished with amoxicillin - 32 week growth ordered PTL precautions reviewed. RTO in 4 weeks or sooner as needed. Huseyin Orourke APRN.MANAGER OF SECURITY [facility] 05-20-2025 Miscellaneous Notes EH - S: Hilary is a 29 year old female who presents at 29w3d for a routine visit. Feeling movement. Denies headache, visual changes, chest pain, shortness of breath, vaginal bleeding, leakage of fluid, or dysuria. Feeling well, no complaints. O: See flow sheet Gen: No apparent distress Abd: Gravid, nontender, S=D ASSESSMENT/PLAN: 1. Supervision of high risk in third trimester ([facility]) - ICD9: V23.9, ICD10: O09.93 (primary diagnosis) - Continue LDA and PNV 2. 29 weeks gestation of ([facility]) - ICD9: V22.2, ICD10: Z3A.29 - 28 week labs reviewed 3. Anemia complicating , third trimester ([facility]) - ICD9: 648.23, 285.9, ICD10: O99.013 - Cannot tolerate oral iron, planning for iron infusions - Has been increasing iron rich foods - 9.8 on 05/06 4. Hypothyroidism, unspecified type - ICD9: 244.9, ICD10: E03.9 - TSH normal as of 05/06 5. Lyme disease, unspecified - ICD9: 088.81, ICD10: A69.20 - Finished with amoxicillin - 32 week growth ordered PTL precautions reviewed. RTO in 4 weeks or sooner as needed. Huseyin Orourke APRN.MANAGER OF SECURITY documented in this encounter [facility] 05-20-2025 Instructions Donita Morales LPN - 05/20/2025 6:55 AM EDT SEQUENTIAL SCREENINGS The [facility] offers sequential screenings for women who are interested in screenings for chromosomal abnormalities and certain defects during a . The sequential screen combines ultrasound and blood tests to determine the risk of chromosomal abnormalities, including Down's Syndrome (Trisomy 21) and Trisomy 18, as well as open neural tube defects including spina bifida. Ultrasound examination is performed between 11 weeks and 13 weeks gestational age. Blood tests are drawn after the ultrasound and again later in the between 15 and 21 weeks gestational age. Please let your physician know if you are interested in this testing. It will require an appointment with our automotive lube technician. This is not an ultrasound performed by a physician in our office during a routine visit. SIGNS AND SYMPTOMS OF LABOR 1. Contractions every 10 minutes or more often 2. Clear, pink, or brownish fluid (water) leaking from vagina 3. Feeling that baby is pushing down, pressure 4. Low, dull backache 5. Cramps that feel like a period 6. Cramps with or without diarrhea If you notice any of the above symptoms, contact our office at [phone] and ask to speak with a nurse. After hours, you can call doctors registry at [phone] OR call [facility] at [phone] and ask to have the doctor production mechanic paged. If you consider this an emergency, dial 9-1-1 or go to your nearest emergency department. NEED HELP? Are you dealing with a violent or abusive relationship? Are you a victim of rape or sexual assult? Call [facility] ([place]) 24 hour Crisis Hotline: 787.760.7488 or 656-535-7605. MANUAL Your Guide to a Healthy manual is now on-line. Visit [email or web address] [email or web address] to download your free copy documented in this encounter [facility] 05-19-2025 Telephone encounter Note Last OV 05/06/25 . Please address in SW absence. Requested Prescriptions Pending Prescriptions Disp Refills ondansetron orally disintegrating (ZOFRAN ODT) 4 mg disintegrating tablet 30 tablet 0 Sig: Take 1 tablet by mouth every 8 hours as needed for nausea/vomiting. Lv Del Castillo RN [facility] 05-19-2025 Miscellaneous Notes Last OV 05/06/25 . Please address in SW absence. Requested Prescriptions Pending Prescriptions Disp Refills ondansetron orally disintegrating (ZOFRAN ODT) 4 mg disintegrating tablet 30 tablet 0 Sig: Take 1 tablet by mouth every 8 hours as needed for nausea/vomiting. Lv Del Castillo RN documented in this encounter [facility] 05-17-2025 Telephone encounter Note Order placed [facility] 05-17-2025 Miscellaneous Notes Order placed 29w0d documented in this encounter [facility] 05-17-2025 Telephone encounter Note 29w0d [facility] 05-06-2025 Progress note Formatting of t his note might be different from the original. S: Hilary Horta is a 29 year old female who presents at 27 weeks gestation for a routine visit. Just completed 1 hour GCT. Positive movements. Denies headache, visual changes, chest pain, shortness of breath, vaginal bleeding, leakage of fluid, or dysuria. O: See flow sheet Gen: No apparent distress Abd: Gravid, nontender ASSESSMENT/PLAN: 1. Supervision of high risk in second trimester 2. Screening for diabetes mellitus 3. 27 weeks gestation of 4. Lyme disease, unspecified - Treated for Lyme disease during but not confirmed positive for Lyme. Was told since she was symptomatic she would be treated- completed antibiotics - 1 hour GCT, CBC, and RPR today - Rh positive O+ - TDAP next visit - LARC form reviewed and signed. Patient declines - Depression screen negative - Opioid screen negative - plan form discussed and given to patient. Patient given plan to fill out and return - PTL precautions and kick counts reviewed - RTO- 2 weeks or sooner if needed Leela Lincoln APRN.CNM [facility] 05-06-2025 Miscellaneous Notes S: Hilary Horta is a 29 year old female who presents at 27 weeks gestation for a routine visit. Just completed 1 hour GCT. Positive movements. Denies headache, visual changes, chest pain, shortness of breath, vaginal bleeding, leakage of fluid, or dysuria. O: See flow sheet Gen: No apparent distress Abd: Gravid, nontender ASSESSMENT/PLAN: 1. Supervision of high risk in second trimester 2. Screening for diabetes mellitus 3. 27 weeks gestation of 4. Lyme disease, unspecified - Treated for Lyme disease during but not confirmed positive for Lyme. Was told since she was symptomatic she would be treated- completed antibiotics - 1 hour GCT, CBC, and RPR today - Rh positive O+ - TDAP next visit - LARC form reviewed and signed. Patient declines - Depression screen negative - Opioid screen negative - plan form discussed and given to patient. Patient given plan to fill out and return - PTL precautions and kick counts reviewed - RTO- 2 weeks or sooner if needed Leela Lincoln APRN.CNM documented in this encounter [facility] 05-06-2025 Instructions Sydnee Melton MA - 05/06/2025 11:28 AM EDT SEQUENTIAL SCREENINGS The [facility] offers sequential screenings for women who are interested in screenings for chromosomal abnormalities and certain defects during a . The sequential screen combines ultrasound and blood tests to determine the risk of chromosomal abnormalities, including Down's Syndrome (Trisomy 21) and Trisomy 18, as well as open neural tube defects including spina bifida. Ultrasound examination is performed between 11 weeks and 13 weeks gestational age. Blood tests are drawn after the ultrasound and again later in the between 15 and 21 weeks gestational age. Please let your physician know if you are interested in this testing. It will require an appointment with our automotive lube technician. This is not an ultrasound performed by a physician in our office during a routine visit. SIGNS AND SYMPTOMS OF LABOR 1. Contractions every 10 minutes or more often 2. Clear, pink, or brownish fluid (water) leaking from vagina 3. Feeling that baby is pushing down, pressure 4. Low, dull backache 5. Cramps that feel like a period 6. Cramps with or without diarrhea If you notice any of the above symptoms, contact our office at [phone] and ask to speak with a nurse. After hours, you can call doctors registry at [phone] OR call [facility] at [phone] and ask to have the doctor production mechanic paged. If you consider this an emergency, dial 6-0-5 or go to your nearest emergency department. NEED HELP? Are you dealing with a violent or abusive relationship? Are you a victim of rape or sexual assult? Call [facility] ([place]) 24 hour Crisis Hotline: 821.740.6611 or 035-097-3323. MANUAL Your Guide to a Healthy manual is now on-line. Visit [email or web address] [email or web address] to download your free copy documented in this encounter [facility] 04-08-2025 Progress note Formatting of t his note might be different from the original. S: Hilary Horta is a 29 year old female who presents at 08/02/2025, by Last Menstrual Period for a routine visit. Denies headache, visual changes, chest pain, shortness of breath, vaginal bleeding, leakage of fluid, or dysuria. Feeling well, no complaints. Good movement, No contractions O: See flow sheet Gen: No apparent distress Abd: Gravid, nontender Reviewed labs for next visit TSH ordered ASSESSMENT/PLAN: 1. Supervision of high risk in second trimester ([facility]) - ICD9: V23.9, ICD10: O09.92 (primary diagnosis) 2. Hypothyroidism, unspecified type - ICD9: 244.9, ICD10: E03.9 TSH with 28 week labs 3. 23 weeks gestation of ([facility]) - ICD9: V22.2, ICD10: Z3A.23 4. Screening for diabetes mellitus - ICD9: V77.1, ICD10: Z13.1 - GESTATIONAL GLUCOSE SCREEN, 1-HOUR, 50 GRAM, NON-FASTING 5. Encounter for supervision of normal first in third trimester ([facility]) - ICD9: V22.0, ICD10: Z34.03 - SYPHILIS TREPONEMAL W/REFLEX - ANEMIA REFLEX PANEL Delisa Cannon MD [facility] 04-08-2025 Miscellaneous Notes S: Hilary Horta is a 29 year old female who presents at 08/02/2025, by Last Menstrual Period for a routine visit. Denies headache, visual changes, chest pain, shortness of breath, vaginal bleeding, leakage of fluid, or dysuria. Feeling well, no complaints. Good movement, No contractions O: See flow sheet Gen: No apparent distress Abd: Gravid, nontender Reviewed labs for next visit TSH ordered ASSESSMENT/PLAN: 1. Supervision of high risk in second trimester ([facility]) - ICD9: V23.9, ICD10: O09.92 (primary diagnosis) 2. Hypothyroidism, unspecified type - ICD9: 244.9, ICD10: E03.9 TSH with 28 week labs 3. 23 weeks gestation of ([facility]) - ICD9: V22.2, ICD10: Z3A.23 4. Screening for diabetes mellitus - ICD9: V77.1, ICD10: Z13.1 - GESTATIONAL GLUCOSE SCREEN, 1-HOUR, 50 GRAM, NON-FASTING 5. Encounter for supervision of normal first in third trimester ([facility]) - ICD9: V22.0, ICD10: Z34.03 - SYPHILIS TREPONEMAL W/REFLEX - ANEMIA REFLEX PANEL Delisa Cannon MD documented in this encounter [facility] 04-08-2025 Instructions Elvia Blount MA - 04/08/2025 11:24 AM EDT SEQUENTIAL SCREENINGS The [facility] offers sequential screenings for women who are interested in screenings for chromosomal abnormalities and certain defects during a . The sequential screen combines ultrasound and blood tests to determine the risk of chromosomal abnormalities, including Down's Syndrome (Trisomy 21) and Trisomy 18, as well as open neural tube defects including spina bifida. Ultrasound examination is performed between 11 weeks and 13 weeks gestational age. Blood tests are drawn after the ultrasound and again later in the between 15 and 21 weeks gestational age. Please let your physician know if you are interested in this testing. It will require an appointment with our automotive lube technician. This is not an ultrasound performed by a physician in our office during a routine visit. SIGNS AND SYMPTOMS OF LABOR 1. Contractions every 10 minutes or more often 2. Clear, pink, or brownish fluid (water) leaking from vagina 3. Feeling that baby is pushing down, pressure 4. Low, dull backache 5. Cramps that feel like a period 6. Cramps with or without diarrhea If you notice any of the above symptoms, contact our office at [phone] and ask to speak with a nurse. After hours, you can call doctors registry at [phone] OR call [facility] at [phone] and ask to have the doctor production mechanic paged. If you consider this an emergency, dial 9--7 or go to your nearest emergency department. NEED HELP? Are you dealing with a violent or abusive relationship? Are you a victim of rape or sexual assult? Call [facility] ([place]) 24 hour Crisis Hotline: 198.769.7101 or 902-596-5209. MANUAL Your Guide to a Healthy manual is now on-line. Visit [email or web address] ncyGuide to download your free copy documented in this encounter [facility] 03-30-2025 Telephone encounter Note Called and spoke with patient. Advised Amoxicillin is approved to take during . This was also addressed in phone note from yesterday. Delisa Saeed RN [facility] 03-30-2025 Miscellaneous Notes Called and spoke with patient. Advised Amoxicillin is approved to take during . This was also addressed in phone note from yesterday. Delisa Saeed RN Patient calling in to give Dr. Miles an update about her amoxicillin dose she was give in urgent care. She was prescribed 500mg capsules 3 times daily. She wants to make sure this is okay for the baby. Please review and advise. Kathy Pham March 30, 2025 12:21 PM documented in this encounter [facility] 03-30-2025 Telephone encounter Note Patient calling in to give Dr. Miles an update about her amoxicillin dose she was give in urgent care. She was prescribed 500mg capsules 3 times daily. She wants to make sure this is okay for the baby. Please review and advise. Kathy Pham March 30, 2025 12:21 PM [facility] 03-29-2025 Telephone encounter Note Pt notified. Pt states having active movement consistently-reviewed importance of doing kick counts, staying hydrated, monitoring for fevers, worsening rash/redness, worsening fatigue, worsening night sweats, or headaches/migraines not relieved by Tylenol 1,000mg every 6 hours PRN to contact our office/ PCP office immediately. Pt voiced understanding. Upon looking to see when Pt's next OB appt was-saw no upcoming appt, so called Pt back and Pt states she just got approved for an insurance and has a new card and needs to schedule an appointment. Transferred Pt to [facility] to get insurance information updated and to get OB appt scheduled. Lv Del Castillo RN [facility] 03-29-2025 Miscellaneous Notes Pt notified. Pt states having active movement consistently-reviewed importance of doing kick counts, staying hydrated, monitoring for fevers, worsening rash/redness, worsening fatigue, worsening night sweats, or headaches/migraines not relieved by Tylenol 1,000mg every 6 hours PRN to contact our office/ PCP office immediately. Pt voiced understanding. Upon looking to see when Pt's next OB appt was-saw no upcoming appt, so called Pt back and Pt states she just got approved for an insurance and has a new card and needs to schedule an appointment. Transferred Pt to [facility] to get insurance information updated and to get OB appt scheduled. Lv Del Castillo RN Recommend management with primary care for follow up. Ok to continue treatment regimen. Can also refer to infectious disease if she desires. ThanksRobyn APRN.CNM 22w0d Patient states she visited the [facility] in [facility] for an insect bite this morning. She was advised by them to call our office. On her left thigh she has a bulls eye rash. She was feeling fatigue, night sweats, and migraine. Patient never saw a tick on her body. [facility] clinic is treating her Lyme's disease with a low dose of Amoxicillin THREE TIMES A DAY x 2 weeks. Patient asking what the next steps are. Asking about blood work. Next OB visit is 04/08/25. Delisa Saeed RN documented in this encounter [facility] 03-29-2025 Telephone encounter Note Recommend management with primary care for follow up. Ok to continue treatment regimen. Can also refer to infectious disease if she desires. Thanks, Robyn Forde APRN.CNM [facility] Work Phone: 03-29-2025 Telephone encounter Note 22w0d Patient states she visited the [facility] in [facility] for an insect bite this morning. She was advised by them to call our office. On her left thigh she has a bulls eye rash. She was feeling fatigue, night sweats, and migraine. Patient never saw a tick on her body. [facility] clinic is treating her Lyme's disease with a low dose of Amoxicillin THREE TIMES A DAY x 2 weeks. Patient asking what the next steps are. Asking about blood work. Next OB visit is 04/08/25. Delisa Saeed RN [facility] 03-12-2025 Progress note Formatting of t his note might be different from the original. SW- No pain, vb, lof. +FM. PE: Gen- NAD, well appearing See flowsheet A/p 19 wk gestation - Hypothyroidism: Patient reports she has not been on medication for 5 plus years, and labs have always been normal. TSH with NOB labs normal. Repeat ordered - NOB labs completed - Anatomy US today and final report pending - RTO 4 wks Uzma Miles DO [facility] 03-12-2025 Miscellaneous Notes SW- No pain, vb, lof. +FM. PE: Gen- NAD, well appearing See flowsheet A/p 19 wk gestation - Hypothyroidism: Patient reports she has not been on medication for 5 plus years, and labs have always been normal. TSH with NOB labs normal. Repeat ordered - NOB labs completed - Anatomy US today and final report pending - RTO 4 wks Uzma Miles DO documented in this encounter [facility] 03-12-2025 Instructions Rachel Fink MA - 03/12/2025 2:55 PM EDT SEQUENTIAL SCREENINGS The [facility] offers sequential screenings for women who are interested in screenings for chromosomal abnormalities and certain defects during a . The sequential screen combines ultrasound and blood tests to determine the risk of chromosomal abnormalities, including Down's Syndrome (Trisomy 21) and Trisomy 18, as well as open neural tube defects including spina bifida. Ultrasound examination is performed between 11 weeks and 13 weeks gestational age. Blood tests are drawn after the ultrasound and again later in the between 15 and 21 weeks gestational age. Please let your physician know if you are interested in this testing. It will require an appointment with our automotive lube technician. This is not an ultrasound performed by a physician in our office during a routine visit. SIGNS AND SYMPTOMS OF LABOR 1. Contractions every 10 minutes or more often 2. Clear, pink, or brownish fluid (water) leaking from vagina 3. Feeling that baby is pushing down, pressure 4. Low, dull backache 5. Cramps that feel like a period 6. Cramps with or without diarrhea If you notice any of the above symptoms, contact our office at [phone] and ask to speak with a nurse. After hours, you can call doctors registry at [phone] OR call [facility] at [phone] and ask to have the doctor production mechanic paged. If you consider this an emergency, dial 9-4 or go to your nearest emergency department. NEED HELP? Are you dealing with a violent or abusive relationship? Are you a victim of rape or sexual assult? Call [facility] ([place]) 24 hour Crisis Hotline: 334.402.4061 or 779-817-0156. MANUAL Your Guide to a Healthy manual is now on-line. Visit [email or web address] ncyGuide to download your free copy documented in this encounter [facility] 12-17-2024 History of Present illness Narrative Trim Attacher offered: Patient declines. INITIAL OB ASSESSMENT HPI: Hilary is a 29 year old White here to establish Obstetrical Care. Patient's last menstrual period was 10/26/2024 (exact date). from OB Dating Form. was unplanned but accepted Complaints: (!) Severe nausea/vomiting OB History Gravida2 Para1 Term1 Preterm0 AB0 Living1 SAB0 IAB0 Ectopic0 Multiple0 Live Births1 # 1 - Date: 11/26/12, Sex: Female, Weight: 3.402 kg (7 lb 8 oz), GA: 40w0d, Type: Vaginal, Spontaneous, Apgar1: 8, Apgar5: 9, Living: Living, Comments: Spontaneous labor, labor augmented with Pitocin, 1st degree vaginal laceration, EBL 300cc # 2 - Date: None, Sex: None, Weight: None, GA: None, Type: None, Apgar1: None, Apgar5: None, Living: None, Comments: None Previous history: Prior : No History of 4th degree laceration: No History of shoulder dystocia: No History of Hypertensive disorders including pre-eclampsia or gestational hypertension: No History of gestational diabetes: No Patient's Risk Screening for delivery: Have you had a prior rebolledo between 20w and 36w6d? No How many pregnancies have you had before? 1 Did you have a previous baby with a GBS Infection? No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 Garcia MD - 06/17/2025 10:56 AM EDTAssociated Problem(s): Supervision of high risk in third trimester (HCC) documented in this encounter [facility] note* Diagnosis Encounter for supervision of high risk in first trimester, antepartum (HCC)- Primary 13 weeks gestation of (HCC) state, incidental Hypothyroidism affecting in first trimester (HCC) Supervision of high risk in third trimester (HCC)- Primary Unspecified high-risk Anemia complicating , third trimester (HCC) 33 weeks gestation of (HCC) state, incidental Nausea/vomiting in (HCC) Unspecified vomiting of , unspecified as to episode of care documented in this encounter [facility] note* Diagnosis Encounter for supervision of high risk in first trimester, antepartum (HCC)- Primary 13 weeks gestation of (HCC) state, incidental Hypothyroidism affecting in first trimester (HCC) Supervision of high risk in third trimester (HCC)- Primary Unspecified high-risk Anemia complicating , third trimester (HCC) 33 weeks gestation of (HCC) state, incidental Maternal iron deficiency anemia complicating , third trimester (HCC)- Primary [facility] Diagnosis Encounter for supervision of high risk in first trimester, antepartum (HCC)- Primary 13 weeks gestation of (HCC) state, incidental Hypothyroidism affecting in first trimester (HCC) Supervision of high risk in third trimester (HCC)- Primary Unspecified high-risk Anemia complicating , third trimester (HCC) 33 weeks gestation of (HCC) state, incidental Maternal iron deficiency anemia complicating , third trimester (HCC)- Primary documented in this encounter [facility] Name Dates Details Patient Instructions Indication:BMI 23.0-23.9, adult Start:10-May-2021 Instruction Type:Provider Instructions for Treatment How to Access [place] [employer] using Patient Portal and [employer] Apps Indication:BMI 23.0-23.9, adult Start:10-May-2021 Instruction Type:Patient Edu cation [facility]; [facility] Work Phone: reason for referral (narrative)No reason for referral [facility] Work Phone: Summary Purpose Family History No Family History Records FoundUnknown Family Member Name Dates Details Father Comments:In good health. Status:Active Mother Comments:Ovarian Cancer. Status:Active Sister 1 Comments:Ovarian Cancer. Status:Active Relationship Condition Age at Onset Recorded Date/T deondre unrelated friend Arthritis Unknown Malignant neoplasm Unknown Diabetes mellitus Unknown Cardiac disease Unknown Hypertension Unknown High blood cholesterol Unknown Unknown Hyperthyroidism Unknown Hypothyroidism Unknown Kidney disorder Unknown Malignant neoplasm of thyroid gland Unkno wn Advance Directives No Advanced Directives Records Found Advance Directive Response Recorded Date/ Time Living Will No December 04 11:11am Do you have a Healthcare Power of Graphic Design Teacher? No December 04, 2024 11:11am Chief Complaint and Reason for Visit Chief Complaint Admit Date PRENANCY N/V December 04, 2024 9:42am TICK BITE/INNER THIGH/L LEG March 29 9:41am Additional Source Comments INFORMATION SOURCE (unrecogn ized section and content) DATE CREATED AUTHOR [facility] DATE CREATED AUTHOR AUTHOR'S ORGANIZ ATION 04/27/2020 [facility] ([place]) DATE CREATED AUTHOR AUTHOR'S ORGANIZ ATION 07/18/2025 [facility] DATE CREATED AUTHOR AUTHOR'S ORGANIZ ATION 07/24/2025 [facility] Source Comments (unrecognize d section and content) In the event this informatio n is protected by the Federal Confidentiality of Alcohol and Drug Abuse Patient Records regulations: The Federal rules restrict any use of the information to criminally investigate or prosecute any alcohol or drug abuse patient.[facility] the event this information is protected by the Federal Confidentiality of Alcohol and Drug Abuse Patient Records regulations: The Federal rules restrict any use of the information to criminally investigate or prosecute any alcohol or drug abuse patient.[facility] Hospital[facility] the event this information is protected by the Federal Confidentiality of Alcohol and Drug Abuse Patient Records regulations: The Federal rules restrict any use of the information to criminally investigate or prosecute any alcohol or drug abuse patient.[facility] HospitalIn the event this information is protected by the Federal Confidentiality of Alcohol and Drug Abuse Patient Records regulations: The Federal rules restrict any use of the information to criminally investigate or prosecute any alcohol or drug abuse patient.[facility] HospitalIn the event this information is protected by the Federal Confidentiality of Alcohol and Drug Abuse Patient Records regulations: The Federal rules restrict any use of the information to criminally investigate or prosecute any alcohol or drug abuse patient.[facility] HospitalIn the event this information is protected by the Federal Confidentiality of Alcohol and Drug Abuse Patient Records regulations: The Federal rules restrict any use of the information to criminally investigate or prosecute any alcohol or drug abuse patient.[facility] HospitalIn the event this information is protected by the Federal Confidentiality of Alcohol and Drug Abuse Patient Records regulations: The Federal rules restrict any use of the information to criminally investigate or prosecute any alcohol or drug abuse patient.[facility] HospitalIn the event this information is protected by the Federal Confidentiality of Alcohol and Drug Abuse Patient Records regulations: The Federal rules restrict any use of the information to criminally investigate or prosecute any alcohol or drug abuse patient.[facility] HospitalIn the event this information is protected by the Federal Confidentiality of Alcohol and Drug Abuse Patient Records regulations: The Federal rules restrict any use of the information to criminally investigate or prosecute any alcohol or drug abuse patient.[facility] HospitalIn the event this information is protected by the Federal Confidentiality of Alcohol and Drug Abuse Patient Records regulations: The Federal rules restrict any use of the information to criminally investigate or prosecute any alcohol or drug abuse patient.[facility] HospitalIn the event this information is protected by the Federal Confidentiality of Alcohol and Drug Abuse Patient Records regulations: The Federal rules restrict any use of the information to criminally investigate or prosecute any alcohol or drug abuse patient.[facility] HospitalIn the event this information is protected by the Federal Confidentiality of Alcohol and Drug Abuse Patient Records regulations: The Federal rules restrict any use of the information to criminally investigate or prosecute any alcohol or drug abuse patient.[facility] HospitalIn the event this information is protected by the Federal Confidentiality of Alcohol and Drug Abuse Patient Records regulations: The Federal rules restrict any use of the information to criminally investigate or prosecute any alcohol or drug abuse patient.[facility] HospitalIn the event this information is protected by the Federal Confidentiality of Alcohol and Drug Abuse Patient Records regulations: The Federal rules restrict any use of the information to criminally investigate or prosecute any alcohol or drug abuse patient.[facility] HospitalIn the event this information is protected by the Federal Confidentiality of Alcohol and Drug Abuse Patient Records regulations: The Federal rules restrict any use of the information to criminally investigate or prosecute any alcohol or drug abuse patient.[facility] HospitalIn the event this information is protected by the Federal Confidentiality of Alcohol and Drug Abuse Patient Records regulations: The Federal rules restrict any use of the information to criminally investigate or prosecute any alcohol or drug abuse patient.[facility] HospitalIn the event this information is protected by the Federal Confidentiality of Alcohol and Drug Abuse Patient Records regulations: The Federal rules restrict any use of the information to criminally investigate or prosecute any alcohol or drug abuse patient.[facility] HospitalIn the event this information is protected by the Federal Confidentiality of Alcohol and Drug Abuse Patient Records regulations: The Federal rules restrict any use of the information to criminally investigate or prosecute any alcohol or drug abuse patient.[facility] HospitalIn the event this information is protected by the Federal Confidentiality of Alcohol and Drug Abuse Patient Records regulations: The Federal rules restrict any use of the information to criminally investigate or prosecute any alcohol or drug abuse patient.[facility] HospitalIn the event this information is protected by the Federal Confidentiality of Alcohol and Drug Abuse Patient Records regulations: The Federal rules restrict any use of the information to criminally investigate or prosecute any alcohol or drug abuse patient.[facility] HospitalIn the event this information is protected by the Federal Confidentiality of Alcohol and Drug Abuse Patient Records regulations: The Federal rules restrict any use of the information to criminally investigate or prosecute any alcohol or drug abuse patient.[facility] HospitalIn the event this information is protected by the Federal Confidentiality of Alcohol and Drug Abuse Patient Records regulations: The Federal rules restrict any use of the information to criminally investigate or prosecute any alcohol or drug abuse patient.[facility] HospitalIn the event this information is protected by the Federal Confidentiality of Alcohol and Drug Abuse Patient Records regulations: The Federal rules restrict any use of the information to criminally investigate or prosecute any alcohol or drug abuse patient.[facility] HospitalIn the event this information is protected by the Federal Confidentiality of Alcohol and Drug Abuse Patient Records regulations: The Federal rules restrict any use of the information to criminally investigate or prosecute any alcohol or drug abuse patient.[facility] HospitalIn the event this information is protected by the Federal Confidentiality of Alcohol and Drug Abuse Patient Records regulations: The Federal rules restrict any use of the information to criminally investigate or prosecute any alcohol or drug abuse patient.[facility] Reason for Visit (unrecogniz ed section and content) Reason Comments [place] Specialty Diagnoses / Procedures Referred By Wesley t Referred To Contact [facility] Diagnoses Supervision of high risk in third trimester (HCC) 29 weeks gestation of (HCC) Anemia complicating , third trimester (HCC) Hypothyroidism, unspecified type Lyme disease, unspecified Procedures OBSTETRIC ULTRASOUND WHI US PREG UTERUS AFTER 1ST TRIMEST GESTATION Huseyin Orourke, NAUN.MANAGER OF SECURITY [address] [place] [address] Phone: tel: fax: [facility] [address] [place] [address] Referral ID Status Reason Start Date Expiration Date V isits Requested Visits Authorized [id number] Closed Auto-Generate d Referral 05/20/2025 05/20/2026 1 1 Reason Onset Date Comments Care 04/08/2025 Specialty Diagnoses / Procedures Referred By Contac t Referred To Contact HYDROGEN BRAZE FURNACE OPERATOR Diagnoses Anything Medically Nessecary Procedures Anything Medically Nessecary Lucy Vargas MD [address] [place] [address] Phone: tel: fax:[phone] OB/Gynecology [address] [place] [address] Phone: tel: Referral ID Status Reason Start Date Expiration Date V isits Requested Visits Authorized [id number] Closed Financial Clearance Required - Self Pay Patient Cleared - Qualified for 501r 01/29/2025 04/29/2025 1 1 Reason Comments Patient Question vomiting for 3 days Reason Comments Nausea Specialty Diagnoses / Procedures Referred By Contac t Referred To Contact HYDROGEN BRAZE FURNACE OPERATOR Diagnoses Virtual Office Visit Procedures Virtual Office Visit Kacy Garcia MD [address] [place] [address] Phone: tel: fax:[phone] OB/Gynecology [address] [place] [address] Phone: tel: Referral ID Status Reason Start Date Expiration Date V isits Requested Visits Authorized [id number] Closed Financial Clearance Required - Self Pay Patient Cleared - Qualified for 501r 12/11/2024 03/11/2025 1 1 Reason Comments Appointment Reason Comments Initial OB Visit Specialty Diagnoses / Procedures [facility]erred To Contact Diagnoses Procedures OB NEW PATIENT LEVEL 2 Self OB/Gynecology [address] [place] [address] Phone: tel: fax:[phone] Referral ID Status Reason Start Date Expiration Date V isits Requested Visits Authorized [id number] Closed Financial Clearance Required - Self Pay Patient Cleared - Qualified for 501r Referred for NATHANIEL Patient Cleared - True Self-Pay required payment collected 11/26/2024 02/24/2025 1 1 Reason Onset Date Comments Refill Request 03/07/2025 Specialty Diagnoses / Procedures Referred By Contac t Referred To Contact HYDROGEN BRAZE FURNACE OPERATOR Diagnoses Anatomy Scan Procedures US PREG UTERUS W/DETAIL LUPILLO 1ST GESTATION Anatomy Scan [facility] [address] [place] [address] Phone: tel: OB/Gynecology [address] [place] [address] Phone: tel: Referral ID Status Reason Start Date Expiration Date V isits Requested Visits Authorized [id number] Closed Financial Clearance Required - Self Pay Patient Cleared - Qualified for 501r 02/05/2025 05/06/2025 1 1 Reason Onset Date Comments Care 03/12/2025 Reason Comments OB Lyme's Disease Reason Comments Patient Update Reason Onset Date Comments Care 05/06/2025 Reason Onset Date Comments Refill Request 05/19/2025 Reason Onset Date Comments Care 05/20/2025 Reason Onset Date Comments Care 06/02/2025 Reason Comments Anemia Reason Comments Non-Chemotherapy Treatment Specialty Diagnoses / Procedures Referred By Contac t Referred To Contact Diagnoses Maternal iron deficiency anemia complicating , third trimester (HCC) Naomy Kowalski PA-C [address] [place] [address] Phone: tel: fax: Hematology/Oncology [address] [place] [address] Phone: tel: fax: Referral ID Status Reason Start Date Expiration Date V isits Requested Visits Authorized [id number] Authorized 06/11/2025 10/06/2025 1 99 Reason Onset Date Comments Care 06/17/2025 Reason Onset Date Comments Refill Request 06/17/2025 Care Teams (unrecognized sec tion and content) Team Status: Active Member Role Status Dates No Primary Care Physician Primary Care Provider Active Team Status: Inactive Member Role Status Dates No Primary Care Physician Primary Care Provider Active Start: December 04, 2024 End: December 04, 2024 Dr. Arvin Stafford , DO Attending Provider Active Start: December 04, 2024 End: December 04, 2024 Dr. Arvin Stafford , DO Emergency Provider Active Start: December 04, 2024 End: December 04, 2024 Team Status: Inactive Member Role Status Dates No Primary Care Physician Primary Care Provider Active Start: March 29, 2025 End: March 29, 2025 No Primary Care Physician Referring Provider Active Start: March 29, 2025 End: March 29, 2025 SADIE Gonzales Attending Provider Active Sta rt: March 29, 2025 End: March 29, 2025 Goals (unrecognized section and content) Goals may be documented in a n alternate section FOR RECORDS PERTAINING TO PATIENTS WHO ARE OR HAVE BEEN ENROLLED IN A CHEMICAL DEPENDENCY/SUBSTANCEABUSE PROGRAM, SOME INFORMATION MAY BE OMITTED. This clinical summary was aggregated from multiple sources. Caution should be exercised in using it in the provision of clinical care. This summary normalizes information from multiple sources, and as a consequence, information in this document may materially change the coding, format and clinical context of patient data. In addition, data may be omitted in some cases. CLINICAL DECISIONS SHOULD BE BASED ON THE PRIMARY CLINICAL RECORDS. [employer] provides no warranty or guarantee of the accuracy or completeness of information in this document.
--- OUTSIDE RECORDS SUMMARY | 2025-07-26 07:41 | XMS RPT_ITS | CCD ---
Author Organization [facility] Care Team Providers Care Tool Straightener Name Role Phone GWYN PENALOZA DO Admitting Unavailable GWYN PENALOZA DO Attending Unavailable GWYN PENALOZA DO Primary Care Unavailable NO, DOCTOR ON Referring Unavailable NO, DOCTOR ON Consulting Unavailable Ciesa 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, Natasha Unavailable Deandre Lg VICTORIAcy Unavailable Unavailable Unavailable Primary Care Provider Unavailabl e Care Physician, No Primary Primary Care Provider Unavailable Dr. Arvin Stafford DO Attending Provider Dr. Arvin Stafford DO Emergency Provider [phone] Care Physician, No Primary Referring Provider Un [...] of ; Translations: [19 weeks gestation of ([facility])] Onset: 05-06-2025 Episodic Residual codes; unclassified (1 source) 27 weeks gestation of ; Translations: [27 weeks gestation of ([facility])] Onset: 05-06-2025 Episodic Spondylosis; intervertebral disc disorders; [...] of ; Translations: [23 weeks gestation of ([facility])] Onset: 04-08-2025 Episodic Residual codes; unclassified (1 source) 13 weeks gestation of ; Translations: [13 weeks gestation of ([facility])] Onset: 01-29-2025 Episodic Residual codes; unclassified (1 [...] B STREPTOCOCCUS BY PCR Not detected Normal [facility] Comment on above: Performed By: #### G BPCR ####[facility] LABCLIA [id number] [place] [address] [place] Ferritin SerPl-mCncon 2024 Ferritin [Mass/Vol] 7.2 ng/mL Low 14.7-205.1 [facility] Comment on above: Order Comment: Speci men Type: BLOOD SPECIMENOrdering Facility: [facility] Address: [address] [place] [address] Performed By: #### 2 132-9, 2284-8, 2276-4, 88410-3 ####[facility] LABCLIA [id number] [address] [address] [place] Folate SerPl-mCncon 06-11-20 Folate [Mass/Vol] 3.8 ng/mL Low >4.7 [facility] Comment on above: Order Comment: Speci men Type: BLOOD SPECIMENOrdering Facility: [facility] Address: [address] [place] [address] Performed By: #### 2 132-9, 2284-8, 2276-4, 33931-4 ####[facility] LABCLIA [id number] [place] [id number] [place] Iron and Iron binding capaci ty panelon 06-11-2025 Iron [Mass/Vol] 21 ug/dL Low 41-186 [facility] Comment on above: Order Comment: Speci men Type: BLOOD SPECIMENOrdering Facility: [facility] Address: [address] [place] [address] Performed By: #### 2 132-9, 2284-8, 2276-4, 30076-3 ####[facility] LABIA [id number] [place] [id number] [place] Iron binding capacity [Mass/Vol] >521 High 232-386 [facility] Comment on above: Order Comment: Speci men Type: BLOOD SPECIMENOrdering Facility: [facility] Address: [address] [place] [address] Performed By: #### 2 132-9, 2284-8, 2276-4, 26734-7 ####[facility] LABIA [id number] [place] [id number] [place] Iron/TIBC [Molar ratio] <4.0 Low 15.0-57.0 [facility] Comment on above: Order Comment: Speci men Type: BLOOD SPECIMENOrdering Facility: [facility] Address: [address] [place] [address] Performed By: #### 2 132-9, 2284-8, 6-4, 89807-0 ####[facility] LABCLIA [id number] [address] [place] [address] [place] Vit B12 [facility] -05-2 025 Cobalamin (Vitamin B12) [Mass/Vol] 509 pg/mL Normal 232-1245 [facility] Comment on above: Order Comment: Speci men Type: BLOOD SPECIMENOrdering Facility: [facility] Address: [address] [place] [address] Performed By: #### 2 132-9, 2284-8, 6-4, 46794-6 ####[facility] LABIA [id number] [place] [address] [place] Examination level ultrasound on 06-03-2025 [facility] CBC W Auto Differential pane l (Bld)on 06-02-2025 Basophils (Bld) [#/Vol] 0.06 10*3/uL Normal <0.11 [facility] Comment on above: Order Comment: Speci men Type: BLOOD SPECIMENOrdering Facility: [facility] Address: [address] [place] [address] Performed By: #### 5 7021-8 ####[facility] LABIA [id number] [place] [id number] [place] Basophils/100 WBC (Bld) 0.4 % Normal [facility] Comment on above: Order Comment: Speci men Type: BLOOD SPECIMENOrdering Facility: [facility] Address: [address] [place] [address] Performed By: #### 5 7021-8 ####[facility] LABIA [id number] [address] [place] Differential cell count method Nom (Bld) Auto Normal [facility] Comment on above: Order Comment: Speci men Type: BLOOD SPECIMENOrdering Facility: [facility] Address: [address] [place] [address] Performed By: #### 5 7021-8 ####[facility] LABCLIA [id number] [address], [facility]95 [place] Eosinophils (Bld) [#/Vol] 0.07 10*3/uL Normal <0.46 [facility] Comment on above: Order Comment: Speci men Type: BLOOD SPECIMENOrdering Facility: [facility] Address: [address] [place] [address] Performed By: #### 5 7021-8 ####[facility] LABCLIA [id number] [address], [place] [address] [place] Eosinophils/100 WBC (Bld) 0.5 % Normal [facility] Comment on above: Order Comment: Speci men Type: BLOOD SPECIMENOrdering Facility: [facility] Address: [address] [place] [address] Performed By: #### 5 7021-8 ####[facility] LABIA [id number] [address], [place] [address] [place] Erythrocyte distribution width (RBC) [Ratio] 13.2 % Normal 11.5-15.0 [facility] Comment on above: Order Comment: Speci men Type: BLOOD SPECIMENOrdering Facility: [facility] Address: [address] [place] [address] Performed By: #### 5 7021-8 ####[facility] LABCLIA [id number] [address], [place] [address] [place] Hematocrit (Bld) [Volume fraction] 30.1 % Low 36.0-46.0 [facility] Comment on above: Order Comment: Speci men Type: BLOOD SPECIMENOrdering Facility: [facility] Address: [address] [place] [address] Performed By: #### 5 7021-8 ####[facility] LABCLIA [id number] [address], [facility]95 [place] Hemoglobin (Bld) [Mass/Vol] 9.4 g/dL Low 11.5-15.5 [facility] Comment on above: Order Comment: Speci men Type: BLOOD SPECIMENOrdering Facility: [facility] Address: [address] [place] [address] Performed By: #### 5 7021-8 ####[facility] LABCLIA [id number] [facility] [address] [address] [place] Immature granulocytes (Bld) [#/Vol] 0.25 10*3/uL High <0.10 [facility] Comment on above: Order Comment: Speci men Type: BLOOD SPECIMENOrdering Facility: [facility] Address: [address] [place] [address] Performed By: #### 5 7021-8 ####[facility] LABCLIA [id number] [place] [address] [place] Immature granulocytes/100 WBC (Bld) 1.7 % Normal [facility] Comment on above: Order Comment: Speci men Type: BLOOD SPECIMENOrdering Facility: [facility] Address: [address] [place] [address] Performed By: #### 5 7021-8 ####[facility] LABCLIA [id number] [place] [address] [place] Lymphocytes (Bld) [#/Vol] 1.84 10*3/uL Normal 1.00-4.00 [facility] Comment on above: Order Comment: Speci men Type: BLOOD SPECIMENOrdering Facility: [facility] Address: [address] [place] [address] Performed By: #### 5 7021-8 ####[facility] LABCLIA [id number] [place] [address] [place] Lymphocytes/100 WBC (Bld) 12.3 % Normal [facility] Comment on above: Order Comment: Speci men Type: BLOOD SPECIMENOrdering Facility: [facility] Address: [address] [place] [address] Performed By: #### 5 7021-8 ####[facility] LABIA [id number] [place] [address] [place] MCH (RBC) [Entitic mass] 25.5 pg Low 26.0-34.0 [facility] Comment on above: Order Comment: Speci men Type: BLOOD SPECIMENOrdering Facility: [facility] Address: [address] [place] [address] Performed By: #### 5 7021-8 ####[facility] LABIA [id number] [place] [address] [place] MCHC (RBC) [Mass/Vol] 31.2 g/dL Normal 30.5-36.0 [facility] Comment on above: Order Comment: Speci men Type: BLOOD SPECIMENOrdering Facility: [facility] Address: [address] [place] [address] Performed By: #### 5 7021-8 ####[facility] [id number] [place] [address] [place] MCV (RBC) [Entitic vol] 81.6 fL Normal 80.0-100.0 [facility] Comment on above: Order Comment: Speci men Type: BLOOD SPECIMENOrdering Facility: [facility] Address: [address] [place] [address] Performed By: #### 5 7021-8 ####[facility] LABIA [id number] [place] [address] [place] Monocytes (Bld) [#/Vol] 0.99 10*3/uL High <0.87 [facility] Comment on above: Order Comment: Speci men Type: BLOOD SPECIMENOrdering Facility: [facility] Address: [address] [place] [address] Performed By: #### 5 7021-8 ####[facility] LABIA [id number] [id number] [address] [place] Monocytes/100 WBC (Bld) 6.6 % Normal [facility] Comment on above: Order Comment: Speci men Type: BLOOD SPECIMENOrdering Facility: [facility] Address: [address] [place] [address] Performed By: #### 5 7021-8 ####[facility] LABCLIA [id number] [facility] [place] [address] [place] Neutrophils (Bld) [#/Vol] 11.74 10*3/uL High 1.45-7.50 [facility] Comment on above: Order Comment: Speci men Type: BLOOD SPECIMENOrdering Facility: [facility] Address: [address] [place] [address] Performed By: #### 5 7021-8 ####[facility] LABCLIA [id number] [place] [address] [place] Neutrophils/100 WBC (Bld) 78.5 % Normal [facility] Comment on above: Order Comment: Speci men Type: BLOOD SPECIMENOrdering Facility: [facility] Address: [address] [place] [address] Performed By: #### 5 7021-8 ####[facility] LABCLIA [id number] [place] [address] [place] Nucleated RBC (Bld) [#/Vol] 10*3/uL Normal <0.01 [facility] Comment on above: Order Comment: Speci men Type: BLOOD SPECIMENOrdering Facility: [facility] Address: [address] [place] [address] Performed By: #### 5 7021-8 ####[facility] LABCLIA [id number] [facility] [place] [address] [place] Nucleated RBC/100 WBC (Bld) [Ratio] 0.0 /100 WBC Normal [facility] Comment on above: Order Comment: Speci men Type: BLOOD SPECIMENOrdering Facility: [facility] Address: [address] [place] [address] Performed By: #### 5 7021-8 ####[facility] LABCLIA [id number] [address] [address] [place] Platelet mean volume (Bld) [Entitic vol] 10.6 fL Normal 9.0-12.7 [facility] Comment on above: Order Comment: Speci men Type: BLOOD SPECIMENOrdering Facility: [facility] Address: [address] [place] [address] Performed By: #### 5 7021-8 ####[facility] LABCLIA [id number] [place] [address] [place] Platelets (Bld) [#/Vol] 269 10*3/uL Normal 150-400 [facility] Comment on above: Order Comment: Speci men Type: BLOOD SPECIMENOrdering Facility: [facility] Address: [address] [place] [address] Performed By: #### 5 7021-8 ####[facility] LABIA [id number] [address] [address] [place] RBC (Bld) [#/Vol] 3.69 10*6/uL Low 3.90-5.20 [facility] Comment on above: Order Comment: Speci men Type: BLOOD SPECIMENOrdering Facility: [facility] Address: [address] [place] [address] Performed By: #### 5 7021-8 ####[facility] LABCLIA [id number] [address] [address] [place] WBC (Bld) [#/Vol] 14.95 10*3/uL High 3.70-11.00 [facility] Comment on above: Order Comment: Speci men Type: BLOOD SPECIMENOrdering Facility: [facility] Address: [address] [place] [address] Performed By: #### 5 7021-8 ####[facility] LABCLIA [id number] [place] [address] [place] Examination level ultrasound on 06-02-2025 Radiology Study observation (narrative) [facility] CBC W Auto Differential pane l (Bld)on 05-06-2025 Basophils (Bld) [#/Vol] 0.04 10*3/uL Normal <0.11 [facility] Comment on above: Order Comment: Speci men Type: BLOOD SPECIMENOrdering Facility: [facility] Address: [address] [place] [address] Performed By: #### 5 7021-8 ####[facility] SYSTEM[facility]IA [id number] [place] [address] [place] Basophils/100 WBC (Bld) 0.3 % Normal [facility] Comment on above: Order Comment: Speci men Type: BLOOD SPECIMENOrdering Facility: [facility] Address: [address] [place] [address] Performed By: #### 5 7021-8 ####[facility] [id number] [place] [address] [place] Differential cell count method Nom (Bld) Auto Normal [facility] Comment on above: Order Comment: Speci men Type: BLOOD SPECIMENOrdering Facility: [facility] Address: [address] [place] [address] Performed By: #### 5 7021-8 ####[facility] MILLWNCLIA [id number] [place] [address] [place] Eosinophils (Bld) [#/Vol] 0.06 10*3/uL Normal <0.46 [facility] Comment on above: Order Comment: Speci men Type: BLOOD SPECIMENOrdering Facility: [facility] Address: [address] [place] [address] Performed By: #### 5 7021-8 ####[facility] [id number] [place] [address] [place] Eosinophils/100 WBC (Bld) 0.4 % Normal [facility] Comment on above: Order Comment: Speci men Type: BLOOD SPECIMENOrdering Facility: [facility] Address: [address] [place] [address] Performed By: #### 5 7021-8 ####[facility] [id number] [place] [address] [place] Erythrocyte distribution width (RBC) [Ratio] 12.9 % Normal 11.5-15.0 [facility] Comment on above: Order Comment: Speci men Type: BLOOD SPECIMENOrdering Facility: [facility] Address: [address] [place] [address] Performed By: #### 5 7021-8 ####[facility] [id number] [place] [address] [place] Hematocrit (Bld) [Volume fraction] 30.4 % Low 36.0-46.0 [facility] Comment on above: Order Comment: Speci men Type: BLOOD SPECIMENOrdering Facility: [facility] Address: [address] [place] [address] Performed By: #### 5 7021-8 ####[facility] [id number] [place] [address] [place] Hemoglobin (Bld) [Mass/Vol] 9.8 g/dL Low 11.5-15.5 [facility] Comment on above: Order Comment: Speci men Type: BLOOD SPECIMENOrdering Facility: [facility] Address: [address] [place] [address] Performed By: #### 5 7021-8 ####[facility] [id number] [place] [address] [place] Immature granulocytes (Bld) [#/Vol] 0.20 10*3/uL High <0.10 [facility] Comment on above: Order Comment: Speci men Type: BLOOD SPECIMENOrdering Facility: [facility] Address: [address] [place] [address] Performed By: #### 5 7021-8 ####[facility] JEAN MARIEABIGAIL [id number] [place] [address] [place] Immature granulocytes/100 WBC (Bld) 1.4 % Normal [facility] Comment on above: Order Comment: Speci men Type: BLOOD SPECIMENOrdering Facility: [facility] Address: [address] [place] [address] Performed By: #### 5 7021-8 ####[facility] [id number] [place] [address] [place] Lymphocytes (Bld) [#/Vol] 1.61 10*3/uL Normal 1.00-4.00 [facility] Comment on above: Order Comment: Speci men Type: BLOOD SPECIMENOrdering Facility: [facility] Address: [address] [place] [address] Performed By: #### 5 7021-8 ####[facility] [id number] [place] [address] [place] Lymphocytes/100 WBC (Bld) 11.3 % Normal [facility] Comment on above: Order Comment: Speci men Type: BLOOD SPECIMENOrdering Facility: [facility] Address: [address] [place] [address] Performed By: #### 5 7021-8 ####[facility] [id number] [place] [address] [place] MCH (RBC) [Entitic mass] 27.0 pg Normal 26.0-34.0 [facility] Comment on above: Order Comment: Speci men Type: BLOOD SPECIMENOrdering Facility: [facility] Address: [address] [place] [address] Performed By: #### 5 7021-8 ####[facility] [id number] [place] [address] [place] MCHC (RBC) [Mass/Vol] 32.2 g/dL Normal 30.5-36.0 [facility] Comment on above: Order Comment: Speci men Type: BLOOD SPECIMENOrdering Facility: [facility] Address: [address] [place] [address] Performed By: #### 5 7021-8 ####[facility] [id number] [place] [address] [place] MCV (RBC) [Entitic vol] 83.7 fL Normal 80.0-100.0 [facility] Comment on above: Order Comment: Speci men Type: BLOOD SPECIMENOrdering Facility: [facility] Address: [address] [place] [address] Performed By: #### 5 7021-8 ####[facility] [id number] [place] [address] [place] Monocytes (Bld) [#/Vol] 0.82 10*3/uL Normal <0.87 [facility] Comment on above: Order Comment: Speci men Type: BLOOD SPECIMENOrdering Facility: [facility] Address: [address] [place] [address] Performed By: #### 5 7021-8 ####[facility] [id number] [place] [address] [place] Monocytes/100 WBC (Bld) 5.7 % Normal [facility] Comment on above: Order Comment: Speci men Type: BLOOD SPECIMENOrdering Facility: [facility] Address: [address] [place] [address] Performed By: #### 5 7021-8 ####[facility] [id number] [place] [address] [place] Neutrophils (Bld) [#/Vol] 11.56 10*3/uL High 1.45-7.50 [facility] Comment on above: Order Comment: Speci men Type: BLOOD SPECIMENOrdering Facility: [facility] Address: [address] [place] [address] Performed By: #### 5 7021-8 ####[facility] [id number] [place] [address] [place] Neutrophils/100 WBC (Bld) 80.9 % Normal [facility] Comment on above: Order Comment: Speci men Type: BLOOD SPECIMENOrdering Facility: [facility] Address: [address] [place] [address] Performed By: #### 5 7021-8 ####[facility] [id number] [place] [address] [place] Nucleated RBC (Bld) [#/Vol] 10*3/uL Normal <0.01 [facility] Comment on above: Order Comment: Speci men Type: BLOOD SPECIMENOrdering Facility: [facility] Address: [address] [place] [address] Performed By: #### 5 7021-8 ####[facility] [id number] [place] [address] [place] Nucleated RBC/100 WBC (Bld) [Ratio] 0.0 /100 WBC Normal [facility] Comment on above: Order Comment: Speci men Type: BLOOD SPECIMENOrdering Facility: [facility] Address: [address] [place] [address] Performed By: #### 5 7021-8 ####[facility] [id number] [place] [address] [place] Platelet mean volume (Bld) [Entitic vol] 9.7 fL Normal 9.0-12.7 [facility] Comment on above: Order Comment: Speci men Type: BLOOD SPECIMENOrdering Facility: [facility] Address: [address] [place] [address] Performed By: #### 5 7021-8 ####[facility] JAVIDNCMATILDEA [id number] [place] [address] [place] Platelets (Bld) [#/Vol] 270 10*3/uL Normal 150-400 [facility] Comment on above: Order Comment: Speci men Type: BLOOD SPECIMENOrdering Facility: [facility] Address: [address] [place] [address] Performed By: #### 5 7021-8 ####[facility] JAVIDNCLIA [id number] [place] [address] [place] RBC (Bld) [#/Vol] 3.63 10*6/uL Low 3.90-5.20 [facility] Comment on above: Order Comment: Speci men Type: BLOOD SPECIMENOrdering Facility: [facility] Address: [address] [place] [address] Performed By: #### 5 7021-8 ####[facility] JEAN MARIEBOSTONNCMATILDEA [id number] [place] [address] [place] WBC (Bld) [#/Vol] 14.29 10*3/uL High 3.70-11.00 [facility] Comment on above: Order Comment: Speci men Type: BLOOD SPECIMENOrdering Facility: [facility] Address: [address] [place] [address] Performed By: #### 5 7021-8 ####[facility] [id number] [place] [address] [place] Ferritin SerPl-mCncon 2024 Ferritin [Mass/Vol] 9.7 ng/mL Low 14.7-205.1 [facility] Comment on above: Order Comment: Speci men Type: BLOOD SPECIMENOrdering Facility: [facility] Address: [address] [place], [place] [id number] Performed By: #### 5 0190-8, 2275-4 ####[facility] LABCLIA [id number] [place] [address] [place] GESTATIONAL GLUCOSE SCREEN, 1-HOUR, 50 GRAM, NON-FASTINGon 05-06-2025 Glucose [Mass/Vol] 120 mg/dL Normal 74-134 [facility] Comment on above: Order Comment: Speci men Type: BLOOD SPECIMENOrdering Facility: [facility] Address: [address] [place] [address] Result Comment: [facility] Congress of Obstetricians and Gynecologists (Melissa/Elo) guidelines state a gestational diabetes mellitus positive screen is made, in women not previously diagnosed with overt diabetes, when the 1 hr plasma glucose level is equal to or above 140 mg/dL. [facility] [employer] [facility] [place] recommends a 135 mg/dL cutoff. Performed By: #### G LTGST ####[facility] [id number] [place] [address] [place] Iron and Iron binding capaci ty panelon 05-06-2025 Iron [Mass/Vol] 35 ug/dL Low 41-186 [facility] Comment on above: Order Comment: Speci men Type: BLOOD SPECIMENOrdering Facility: [facility] Address: [address] [place], [place] [id number] Performed By: #### 5 0190-8, 2276-01 ####[facility] LABCLIA [id number] [place] [id number] [place] Iron binding capacity [Mass/Vol] >535 High 232-386 [facility] Comment on above: Order Comment: Speci men Type: BLOOD SPECIMENOrdering Facility: [facility] Address: [address] [place] [address] Performed By: #### 5 0190-8, 2276-01 ####[facility] LABCLIA [id number] [place] [address] [place] Iron/TIBC [Molar ratio] <6.5 Low 15.0-57.0 [facility] Comment on above: Order Comment: Speci men Type: BLOOD SPECIMENOrdering Facility: [facility] Address: [address] [place] [address] Performed By: #### 5 0190-8, 2276-4 ####[facility] [id number] [place] [address] [place] Reagin and Treponema pallidu m IgG and IgM [Interp]on 05-06-2025 T. pallidum IgG+IgM IA Ql (S) Non-Reactive Normal Nonreactive [facility] Comment on above: Order Comment: Speci men Type: BLOOD SPECIMENOrdering Facility: [facility] Address: [address] [place] [address] Performed By: #### 7 3752-8 ####[facility] [id number] [place] [address] [place] Reagin+T pallidum IgG+IgM Se rPl-Impon 05-06-2025 Reagin and Treponema pallidum IgG and IgM [Interp] Cannot exclude recent Treponemal infection if specimen collected within 7-10 days after appearance of suspect lesions or 2-3 weeks after an exposure. Clinical correlation is required. Normal [facility] Comment on above: Order Comment: Speci men Type: BLOOD SPECIMENOrdering Facility: [facility] Address: [address] [place] [address] Performed By: #### 7 3752-8 ####[facility] [id number] [place] [id number] [place] TSH SerPl-aCncon 05-06-2025 TSH Qn 1.910 m[IU]/L Normal 0.270-4.200 [facility] Comment on above: Order Comment: Speci men Type: BLOOD SPECIMENOrdering Facility: [facility] Address: [address] [place], [place] [address] [id number] Result Comment: If t he patient is , TSH reference range varies by gestational period: First Trimester (weeks 9-12): 0.180-2.990 mIU/L Second Trimester: 0.110-3.980 mIU/L Third Trimester: 0.480-4.710 mIU/L Raul Sahni et al. A Practical Approach for the Verifications and Determination of Site- and Trimester-Specific Reference Intervals for Thyroid Function tests in . Thyroid, 2019:29:3:412-420. Joe Abdi, et al. 2017 Guidelines of the [place] Thyroid Association for the Diagnosis and Management of Thyroid Disease during and the . Thyroid, 2017:27:3:315-389. Performed By: #### 3 016-3 ####[facility] LABCLIA [id number] [facility] [id number] [place] [address] OF [facility] 03-30-2025 CNPN Telephone (OBGYWM) HILARY HORTA ([id number]) 1995 F Date Time Provider Department 03/30/25 [...] Encounter Status:Closed by DELISA SAEED on 03/30/25 [facility]LYNNGYWM[facility] HILARY HORTA ([id number]) 1995 F Date Time Provider Department 03/29/25 ROBYN FORDE During your visit today, we recorded the following information about you: Delisa Saeed RN 03/29/2025 10:54 AM Signed 22w0d Patient states she visited the [facility] in [facility] for an insect bite this morning. She [...] Status:Closed by LV DEL CASTILLO on 03/29/25 [facility] Office Visit Reporton 2024 Office Visit Report [facility] [address] [place] [address] OFFICE VISIT Date of Service: 03/29/25 MR#: [id number] Acct: [id number] Patient: HILARY HORTA Rep #: [id number] : 1995 Provider: SADIE Millard Age/Sex: 29/F Location: [facility] Status: Signed Intake Vital Signs 12/04/24 09:44 [...] Signature: Date (if applicable) CC: Normal [facility] [place] [place] Examination level ultrasound on 03-12-2025 Indication Standard [...] 14 oz EFW by: Hadlock (HC-AC-FL) Extended Chlorine Plant Operator 6.3 mm CM 4.0 mm 21% Nicolaides [...] normal LVOT view: normal 3-vessel view: normal 0-hdpbtt-zpogjhg view: normal Heart / Thorax Situs: situs [...] Read By: Gabbie Wilcox M.D. MATERNAL MEDICINE [facility] Radiology Study observation (narrative) [facility] CBC W Auto Differential pane l (Bld)on 01-05-2025 Basophils (Bld) [#/Vol] 0.04 10*3/uL Normal <0.11 [facility] Comment on above: Order Comment: Speci men Type: BLOOD SPECIMENOrdering Facility: [facility] Address: [address] [place] [address] Performed By: #### 5 7021-8 ####[facility] [id number] [place] [address] [place] Basophils/100 WBC (Bld) 0.5 % Normal [facility] Comment on above: Order Comment: Speci men Type: BLOOD SPECIMENOrdering Facility: [facility] Address: [address] [place] [address] Performed By: #### 5 7021-8 ####[facility] [id number] [place] [address] [place] Differential cell count method Nom (Bld) Auto Normal [facility] Comment on above: Order Comment: Speci men Type: BLOOD SPECIMENOrdering Facility: [facility] Address: [address] [place] [address] Performed By: #### 5 7021-8 ####[facility] MILLWNCLIA [id number] [place] [address] [place] Eosinophils (Bld) [#/Vol] 0.03 10*3/uL Normal <0.46 [facility] Comment on above: Order Comment: Speci men Type: BLOOD SPECIMENOrdering Facility: [facility] Address: [address] [place] [address] Performed By: #### 5 7021-8 ####[facility]ENTERADDYLIA [id number] [place] [address] [place] Eosinophils/100 WBC (Bld) 0.4 % Normal [facility] Comment on above: Order Comment: Speci men Type: BLOOD SPECIMENOrdering Facility: [facility] Address: [address] [place] [address] Performed By: #### 5 7021-8 ####[facility] SYSTEM[facility]IA [id number] [place] [address] [place] Erythrocyte distribution width (RBC) [Ratio] 13.3 % Normal 11.5-15.0 [facility] Comment on above: Order Comment: Speci men Type: BLOOD SPECIMENOrdering Facility: [facility] Address: [address] [place] [address] Performed By: #### 5 7021-8 ####[facility] SYSTEM[facility] [id number] [place] [address] [place] Hematocrit (Bld) [Volume fraction] 37.5 % Normal 36.0-46.0 [facility] Comment on above: Order Comment: Speci men Type: BLOOD SPECIMENOrdering Facility: [facility] Address: [address] [place] [address] Performed By: #### 5 7021-8 ####[facility]ENTERNCLIA [id number] [place] [address] [place] Hemoglobin (Bld) [Mass/Vol] 12.5 g/dL Normal 11.5-15.5 [facility] Comment on above: Order Comment: Speci men Type: BLOOD SPECIMENOrdering Facility: [facility] Address: [address] [place] [address] Performed By: #### 5 7021-8 ####[facility] [id number] [place] [address] [place] Immature granulocytes (Bld) [#/Vol] 0.04 10*3/uL Normal <0.10 [facility] Comment on above: Order Comment: Speci men Type: BLOOD SPECIMENOrdering Facility: [facility] Address: [address] [place] [address] Performed By: #### 5 7021-8 ####[facility] [id number] [place] [address] [place] Immature granulocytes/100 WBC (Bld) 0.5 % Normal [facility] Comment on above: Order Comment: Speci men Type: BLOOD SPECIMENOrdering Facility: [facility] Address: [address] [place] [address] Performed By: #### 5 7021-8 ####[facility] [id number] [place] [address] [place] Lymphocytes (Bld) [#/Vol] 1.54 10*3/uL Normal 1.00-4.00 [facility] Comment on above: Order Comment: Speci men Type: BLOOD SPECIMENOrdering Facility: [facility] Address: [address] [place] [address] Performed By: #### 5 7021-8 ####[facility] [id number] [place] [address] [place] Lymphocytes/100 WBC (Bld) 19.2 % Normal [facility] Comment on above: Order Comment: Speci men Type: BLOOD SPECIMENOrdering Facility: [facility] Address: [address] [place] [address] Performed By: #### 5 7021-8 ####[facility] JEAN MARIEBOSTONANTELMO [id number] [address] MCH (RBC) [Entitic mass] 27.7 pg Normal 26.0-34.0 [facility] Comment on above: Order Comment: Speci men Type: BLOOD SPECIMENOrdering Facility: [facility] Address: [address] [place] [address] Performed By: #### 5 7021-8 ####[facility] [id number] [address] [facility] MCHC (RBC) [Mass/Vol] 33.3 g/dL Normal 30.5-36.0 [facility] Comment on above: Order Comment: Speci men Type: BLOOD SPECIMENOrdering Facility: [facility] Address: [address] [place] [address] Performed By: #### 5 7021-8 ####[facility] [id number] [address] [place] [facility] MCV (RBC) [Entitic vol] 83.0 fL Normal 80.0-100.0 [facility] Comment on above: Order Comment: Speci men Type: BLOOD SPECIMENOrdering Facility: [facility] Address: [address] [place] [address] Performed By: #### 5 7021-8 ####[facility] [id number] [place] [address] [place] [facility] [place] Monocytes (Bld) [#/Vol] 0.42 10*3/uL Normal <0.87 [facility] Comment on above: Order Comment: Speci men Type: BLOOD SPECIMENOrdering Facility: [facility] Address: [address] [place] [address] Performed By: #### 5 7021-8 ####[facility] RIVERSIDEWNCLIA [id number] [place] [address] [place] Monocytes/100 WBC (Bld) 5.2 % Normal [facility] Comment on above: Order Comment: Speci men Type: BLOOD SPECIMENOrdering Facility: [facility] Address: [address] [place] [address] Performed By: #### 5 7021-8 ####[facility] SYSTEML[facility] [id number] [place] [address] [place] Neutrophils (Bld) [#/Vol] 5.94 10*3/uL Normal 1.45-7.50 [facility] Comment on above: Order Comment: Speci men Type: BLOOD SPECIMENOrdering Facility: [facility] Address: [address] [place] [address] Performed By: #### 5 7021-8 ####[facility] [id number] [place] [address] [place] Neutrophils/100 WBC (Bld) 74.2 % Normal [facility] Comment on above: Order Comment: Speci men Type: BLOOD SPECIMENOrdering Facility: [facility] Address: [address] [place] [address] Performed By: #### 5 7021-8 ####[facility] SYSTEML[facility] [id number] [place] [address] [place] Nucleated RBC (Bld) [#/Vol] 10*3/uL Normal <0.01 [facility] Comment on above: Order Comment: Speci men Type: BLOOD SPECIMENOrdering Facility: [facility] Address: [address] [place] [address] Performed By: #### 5 7021-8 ####[facility]ERNCLIA [id number] [place] [address] [place] Nucleated RBC/100 WBC (Bld) [Ratio] 0.0 /100 WBC Normal [facility] Comment on above: Order Comment: Speci men Type: BLOOD SPECIMENOrdering Facility: [facility] Address: [address] [place] [address] Performed By: #### 5 7021-8 ####[facility] [id number] [place] [address] [place] Platelet mean volume (Bld) [Entitic vol] 10.4 fL Normal 9.0-12.7 [facility] Comment on above: Order Comment: Speci men Type: BLOOD SPECIMENOrdering Facility: [facility] Address: [address] [place] [address] Performed By: #### 5 7021-8 ####[facility] [id number] [place] [address] [place] Platelets (Bld) [#/Vol] 235 10*3/uL Normal 150-400 [facility] Comment on above: Order Comment: Speci men Type: BLOOD SPECIMENOrdering Facility: [facility] Address: [address] [place] [address] Performed By: #### 5 7021-8 ####[facility] [id number] [place] [address] [place] RBC (Bld) [#/Vol] 4.52 10*6/uL Normal 3.90-5.20 [facility] Comment on above: Order Comment: Speci men Type: BLOOD SPECIMENOrdering Facility: [facility] Address: [address] [place] [address] Performed By: #### 5 7021-8 ####[facility]ERNCLI [id number] [place] [address] [place] WBC (Bld) [#/Vol] 8.01 10*3/uL Normal 3.70-11.00 [facility] Comment on above: Order Comment: Speci men Type: BLOOD SPECIMENOrdering Facility: [facility] Address: [address] [place] [address] Performed By: #### 5 7021-8 ####[facility] NAMRATA CALDERON [id number] [place] [address] [place] HBV surface Ag Ser Qlon 04-0 HBV surface Ag Ql (S) Negative Normal Negative [facility] Comment on above: Order Comment: Speci men Type: BLOOD SPECIMENOrdering Facility: [facility] Address: [address] [place] [address] Performed By: #### 3 1201-7, 5195-3, 38538-9 ####[facility] LABCLIA [id number] [place] [address] [place] HCV Ab Ser Qlon 01-05-2025 HCV Ab Ql (S) Negative Normal Negative [facility] Comment on above: Order Comment: Speci men Type: BLOOD SPECIMENOrdering Facility: [facility] Address: [address] [place] [address] Result Comment: The result suggests no evidence of infection with Hepatitis C virus. Should recent infection be suspected, repeat testing may be considered 4-6 weeks after this draw. Performed By: #### 1 6128-1 ####[facility] LABCLIA [id number] [place] [address] [place] HIV 1+2 Ab IA Qlon HIV 1 and 2 Ab IA.rapid Nom (S/P/Bld) Normal [facility] Comment on above: Order Comment: Speci men Type: BLOOD SPECIMENOrdering Facility: [facility] Address: [address] [place] [address] Result Comment: Test not indicated. Performed By: #### 3 1201-7, 5195-3, 24598-8 ####[facility] LABCLIA [id number] [place] [address] [place] HIV 1+2 Ab+HIV1 p24 Ag IA Ql Non-Reactive Normal Nonreactive [facility] Comment on above: Order Comment: Speci men Type: BLOOD SPECIMENOrdering Facility: [facility] Address: [address] [place] [address] Performed By: #### 3 1201-7, 5195-3, 27599-5 ####[facility] LABCLIA [id number] [place] [address] [place] HIV immunoassay testing algorithm interpretation (S/P/Bld) [Interp] Normal [facility] Comment on above: Order Comment: Speci men Type: BLOOD SPECIMENOrdering Facility: [facility] Address: [address] [place] [address] Result Comment: No e vidence of HIV-1 or HIV-2 infection. Should recent infection be suspected, repeat testing may be considered 2-3 weeks after this draw. [place] Rev. Code 3701.243(E): This information has been [...] diagnoses. Performed By: #### 3 1201-7, 5195-3, 96815-1 ####[facility] LABCLIA [id number] [place] [address] [place] HbA1c (Bld)on 01-05-2025 Average glucose Estimated from glycated hemoglobin (Bld) [Mass/Vol] 100 mg/dL Normal [facility] Comment on above: Order Comment: Speci men Type: BLOOD SPECIMENOrdering Facility: [facility] Address: [address] [place] [address] Result Comment: eAG: (Estimated average glucose) is a calculated value from HgbA1c and is customer service representative teacher of the average blood glucose level in the last 2-3 month period. Performed By: #### 5 5454-3 ####[facility] LABIA [id number] [place] [address] [place] HbA1c (Bld) [Mass fraction] 5.1 % Normal 4.3-5.6 [facility] Comment on above: Order Comment: Andres elina Type: BLOOD SPECIMENOrdering Facility: [facility] Address: [address] [place] [address] Result Comment: [place] Diabetes Association guidelines indicate that patients with HgbA1c in the range 5.7-6.4% are at increased risk for development of diabetes, and intervention by lifestyle modification may be beneficial. HgbA1c greater or equal to 6.5% is considered diagnostic of diabetes. Performed By: #### 5 5454-3 ####[facility] LABIA [id number] [address] [place] RUBELLA IGG ANTIBODYon 01-05 RUBELLA IGG AB, QUAL Positive Normal Positive [facility] Comment on above: Order Comment: Andres [facility] Type: BLOOD SPECIMENOrdering Facility: [facility] Address: [address] [place] [address] Result Comment: The result suggests recent or past exposure to Rubella virus or history of Rubella vaccination. Positive result may also be seen due to presence of passively-transferred antibodies. Please correlate with patient's history. Performed By: #### R UBIGG ####[facility] [id number] [place] [address] [place] Reagin and Treponema pallidu m IgG and IgM [Interp]on 01-05-2025 T. pallidum IgG+IgM IA Ql (S) Non-Reactive Normal Nonreactive [facility] Comment on above: Order Comment: Andres [facility] Type: BLOOD SPECIMENOrdering Facility: [facility] Address: [address] [place] [address] Performed By: #### 3 1201-7, 5195-3, 48418-8 ####[facility] LABIA [id number] [place] [address] [place] Reagin+T pallidum IgG+IgM Se rPl-Impon 01-05-2025 Reagin and Treponema pallidum IgG and IgM [Interp] Cannot exclude recent Treponemal infection if specimen collected within 7-10 days after appearance of suspect lesions or 2-3 weeks after an exposure. Clinical correlation is required. Normal [facility] Comment on above: Order Comment: Speci men Type: BLOOD SPECIMENOrdering Facility: [facility] Address: [address] [place] [address] Performed By: #### 3 1201-7, 5195-3, 80500-1 ####[facility] [id number] [place] [address] [place] T4 Free SerPl-mCncon 025 Free T4 [Mass/Vol] 1.2 ng/dL Normal 0.9-1.7 [facility] Comment on above: Order Comment: Speci men Type: BLOOD SPECIMENOrdering Facility: [facility] Address: [address] [place] [address] Performed By: #### 3 024-7, 3016-3 ####[facility] [id number] [place] [address] [place] TSH SerPl-aCncon 01-05-2025 TSH Qn 2.490 m[IU]/L Normal 0.270-4.200 [facility] Comment on above: Order Comment: Speci men Type: BLOOD SPECIMENOrdering Facility: [facility] Address: [address] [place] [address] Result Comment: If t he patient is , TSH reference range varies by gestational period: First Trimester (weeks 9-12): 0.180-2.990 mIU/L Second Trimester: 0.110-3.980 mIU/L Third Trimester: 0.480-4.710 mIU/L Raul Sahni et al. A Practical Approach for the Verifications and Determination of Site- and Trimester-Specific Reference Intervals for Thyroid Function tests in . Thyroid, 2019:29:3:412-420. Joe E, et al. 2017 Guidelines of the [place] Thyroid Association for the Diagnosis and Management of Thyroid Disease during and the . Thyroid, 2017:27:3:315-389. Performed By: #### 3 024-7, 3016-3 ####[facility] LABCLIA [id number] [place] [address] [place] TYPE + SCREEN PRENATALon ABO O Normal [facility] Comment on above: Order Comment: Speci men Type: BLOOD SPECIMENOrdering Facility: [facility] Address: [address] [place] [address] Performed By: #### T SPN ####[facility] BLOOD BANKCLIA [id number] [place] [address] [place] Rh Nom (Bld) Positive Normal [facility] Comment on above: Order Comment: Speci men Type: BLOOD SPECIMENOrdering Facility: [facility] Address: [address] [place] [address] Performed By: #### T SPN ####[facility] BLOOD BANKCLIA [id number] [place] [address] [place] TYPE AND SCREEN EXPIRATION 01/08/2025 23:59 Normal [facility] Comment on above: Order Comment: Speci men Type: BLOOD SPECIMENOrdering Facility: [facility] Address: [address] [place] [address] Performed By: #### T SPN ####[facility] BLO[facility] BANKCLIA [id number] [place] [address] [place] Bacteria Ur Culton 5 Bacteria identified Cx Nom (U) ORGANISM ID: 1 10,000 -<50,000 CFU/ml Mixed microbiota Insignificant colony count. No further workup. Normal [facility] Comment on above: Performed By: #### 6 30-4 ####[facility] LABCLIA [id number] [facility] AVENUEDESK [id number] [address] [place] C. trachomatis+N. gonorrhoea e DNA KYLIE+probe Ql (Unsp spec)on 12-17-2024 C. trachomatis rRNA KYLIE+probe Ql (Unsp spec) Not detected Normal Not detected [facility] Comment on above: Order Comment: Speci men Type: SWABOrdering Facility: [facility] Address: [address] [place] [address] Performed By: #### T RVAMP, 17637-7 ####[facility] LABCLIA [id number] [address] [place] N. gonorrhoeae rRNA KYLIE+probe Ql (Unsp spec) Not detected Normal Not detected [facility] Comment on above: Order Comment: Speci men Type: SWABOrdering Facility: [facility] Address: [address] [place] [address] Performed By: #### T RVAMP, 41012-4 ####[facility] LABIA [id number] [address] [place] HIGH RISK HUMAN PAPILLOMA DEBBIE (HPV), PCR FOR DETECTION AND GENOTYPINGon 12-17-2024 HPV 16 Ag Ql (Unsp spec) Not detected Normal Not detected [facility] Comment on above: Order Comment: Speci men Type: FLUID SPECIMENOrdering Facility: [facility] Address: [address] [place] [address] Performed By: #### H PVHRT ####[facility] LABCLIA [id number] [place] [address] [place] HPV 18 Ag Ql (Unsp spec) Not detected Normal Not detected [facility] Comment on above: Order Comment: Speci men Type: FLUID SPECIMENOrdering Facility: [facility] Address: [address] [place] [address] Performed By: #### H PVHRT ####[facility] LABCLIA [id number] [place] [address] [place] HPV 31+33+35+39+45+51+52+5 6+58+59+66+68 DNA KYLIE+probe Ql (Cvx) Not detected Normal Not detected [facility] Comment on above: Order Comment: Speci men Type: FLUID SPECIMENOrdering Facility: [facility] Address: [address] [place] [address] Result Comment: High Risk HPV Other Type includes HPV types 31, 33, 35, 39, 45, 51, 52, 56, 58, 59, 66 and 68. Performed By: #### H PVHRT ####[facility] LABCLIA [id number] [place] [address] [place] PAP TESTon 12-17-2024 ADEQUACY Normal [facility] Comment on above: Order Comment: Speci men Type: FLUID SPECIMENOrdering Facility: [facility] Address: [address] [place] [address] Result Comment: Sati sfactory for interpretation. No endocervical component Performed By: #### L [id number] ####[facility] LABCLIA [id number] [place] [address] [place] CASE REPORT Normal [facility] Comment on above: Order Comment: Speci men Type: FLUID SPECIMENOrdering Facility: [facility] Address: [address] [place] [address] Result Comment: Gyne cologic Cytology Report Case: [id number] Authorizing Provider: Huseyin Orourke APRN.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 Collected: 12/17/2024 11:54 AM Ordering Location: OB/Gynecology Received: 12/17/2024 03:56 PM First Screen: Eva Lares, CT, ASCP Specimen: Pap Test, ThinPrep, Cervix Performed By: #### L [id number] ####[facility] LABCLIA [id number] [place] [id number] [place] CLINICAL HISTORY, CYTOLOGY, MESMERIST (Indicate Weeks) Normal [facility] Comment on above: Order Comment: Speci men Type: FLUID SPECIMENOrdering Facility: [facility] Address: [address] [place] [address] Performed By: #### L [id number] ####[facility] LABCLIA [id number] [place] [address] [place] CYTOLOGY PAP OTHER INTERPRETATION Normal [facility] Comment on above: Order Comment: Speci men Type: FLUID SPECIMENOrdering Facility: [facility] Address: [address] [place] [address] Result Comment: Margie al organisms morphologically consistent with Maddison species. Predominance of coccobacilli consistent with shift in vaginal linsey. Performed By: #### L [id number] ####[facility] LABCLIA [id number] [place] [address] [place] FINAL PERFORMING LAB Normal [facility] Comment on above: Order Comment: Speci men Type: FLUID SPECIMENOrdering Facility: [facility] Address: [address] [place] [address] Result Comment: Tech nical component, professor of medicine screening performed at [facility], [address] [place], [place] [id number] CLIA# [id number] Diagnostic interpretation performed at [facility], [address] [place], [place] [id number] CLIA# [id number] Architectural Inspector: Liam Marie M.D. Performed By: #### L [id number] ####[facility] LABCLIA [id number] [place] [address] [place] INTERPRETATION, CYTOLOGY, MESMERIST Normal [facility] Comment on above: Order Comment: Speci men Type: FLUID SPECIMENOrdering Facility: [facility] Address: [address] [place] [address] Result Comment: Nega tive for intraepithelial lesion or malignancy. at 1036 EDT Performed By: #### L [id number] ####[facility] LABCLIA [id number] [place] [id number] [place] LMP 10/26/2024 Normal [facility] Comment on above: Order Comment: Speci men Type: FLUID SPECIMENOrdering Facility: [facility] Address: [address] [place] [address] Performed By: #### L [id number] ####[facility] LABCLIA [id number] [address] [place] [address] [place] PAP DISCLAIMER COMMENT The Pap Smear is a screening test for cervical cancer. False negative results occur with all screening tests, emphasizing the need for rescreening at recommended intervals, and clinical correlation. Normal [facility] Comment on above: Order Comment: Speci men Type: FLUID SPECIMENOrdering Facility: [facility] Address: [address] [place] [address] Performed By: #### L [id number] ####[facility] LABCLIA [id number] [address] [address] [place] PAP COUPON CLERK COMMENT This specimen has been analyzed by the ThinPrep Imaging System, an automated imaging and review system, which assists the laboratory in evaluating cells on ThinPrep Pap tests. Following automated imaging, selected kraus from every slide are reviewed by a professor of medicine. Normal [facility] Comment on above: Order Comment: Speci men Type: FLUID SPECIMENOrdering Facility: [facility] Address: [address] [place] [address] Performed By: #### L [id number] ####[facility] LABCLIA [id number] [address] [address] [place] POC FREIGHT RATE ANALYST ULTRASOUNDon 12-18-19 25 Indication Viability; confirm cardiac [...] Read By: Huseyin Orourke NP MATERNAL MEDICINE [facility] Radiology Study observation (narrative) [facility] TRICHOMONAS VAGINALIS NAATon 12-17-2024 T. vaginalis DNA KYLIE+probe Ql (Unsp spec) Not detected Normal Not detected [facility] Comment on above: Order Comment: Speci men Type: SWABOrdering Facility: [facility] Address: [address] [place] [address] Performed By: #### T RVAMP, 09051-5 ####[facility] LABCLIA [id number] [address] OF [facility] [place] 12-15-2024 CNPN Telephone (OBGYWM) HILARY HORTA ([id number]) 1995 F Date Time Provider Department 12/15/24 HUSEYIN OROURKE During your visit today, we recorded the following information about you: Aravind Harrison RN 12/15/2024 12:52 PM Signed Left message for patient to return phone call to complete nurse intake questions for her upcoming appointment. Patient has an appointment with Huseyin Orourke for NOB appointment. Please transfer to [facility] or ms. Please do not give her a 2:00 time with me. 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 [email or web address] message sent to patient with nausea/vomiting recommendations. [...] Signed Can schedule virtual at 1:00 with ms Huseyin Orourke APRN.Nithya Soares RN 12/11/2024 11:29 AM Signed Patient notified and scheduled. 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 Medical Records Department [address] [place] [address] Emergency Department Summary 12/04/24 MR#: [id number] Acct: [id number] Name: HILARY HORTA Rep #: [id number] : 1995 29 From: Arvin Stafford DO [...] she is currently 6 weeks called her TEXTILE SCIENCE TECHNICIAN office and they advised her to come here for the valuation management. She states that she follows with Dr. Vargas [facility]. States that she has not had a confirmed medical test.. Patient denies any recent sick contacts. [facility] Medical History (Updated 12/04/24 @ 13:29 by [...] following commands knew that she was at [facility] year is 2024 Skin: Warm, dry, intact [...] already has a appointment scheduled with her TEXTILE SCIENCE TECHNICIAN and she is advised to keep this appointment she was advised to (more content not included)... Normal [facility] Influenza virus A and B and SARS-CoV-2 (COVID-19) and Respiratory syncytial virus RNAOrdered By: Arvin Stafford on 12-04-2024 SARS-CoV-2 (COVID-19) RNA KYLIE+probe Ql (Unsp spec) [facility] Ketones Test strip Ql (U)Ord ered By: Arvin Stafford on 12-04-2024 Ketones Ql (U) 150 mg/dl Abnormal Negative [facility] Comment on above: CRITICAL VALUE *HCRI TICAL VALUE CALLED TO Valentino VASQUES12/04/24 1150 Tigist Fitzpatrick.RESULTS READ BACK BY . M100.678on 12-04-2024 M100.678 Normal Reference Range = Negative FLUABV+SARS-CoV-2+RSV Pnl Resp KYLIE+probe GeneXpert Instrument, PCR method SARS-CoV-2 (COVID 19) Negative INFLUENZA A Negative INFLUENZA B Negative RSV PCR Negative Normal [facility] Comment on above: Performed By: #### M 100.708 #### [facility] Laboratory [facility] [address] [place], [place], [id number] Microscopic analysis of urin e for red blood cells (RBC)Ordered By: Arvin Stafford on 12-04-2024 Microscopic analysis of urine for red blood cells (RBC) 0-5 SEEN /hpf 0-5 [facility] Mucus LM Ql (Urine sed)Order ed By: Arvin Stafford on 12-04-2024 Mucus Ql (Urine sed) 1+ /hpf [facility] Nitrite Test strip Ql (U)Ord ered By: Arvin Stafford on 12-04-2024 Nitrite Ql (U) Negative Negative [facility] ,Serum,hCG Quali.on 12-04-2024 HCG, SERUM QUAL Positive Normal [facility] Comment on above: Result Comment: CRIT ICAL VALUE CALLED TO TISHA CARBALLO (ER) 12/04/24 1306 Ebenezer Penny. RESULTS READ BACK BY SAME. Performed By: #### L 700.6800 #### [facility] [address] [facility] [address] [place], [place], [address] ,Urineon 12-04-2024 Beta HCG ( test) Ql (U) Negative Normal [facility] Comment on above: Result Comment: Very dilute urine specimens, as indicated by a low specific gravity, may not contain customer service representative teacher levels of hCG. If is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 encounter Delisa Cannon MD Work Phone: OB/Gynecology Start: 05-06-2025 End: 05-06-2025 Patient encounter procedure Leela Lincoln 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.CNM Work Phone: OB/Gynecology Comment on above: Supervision of high risk in second trimester (HCC) (Primary Dx); Nausea/vomiting in (HCC); Hypothyroidism, unspecified type; Screening for diabetes mellitus; 27 weeks gestation of (HCC); Lyme disease, unspecified Start: 05-06-2025 End: 05-06-2025 [facility] Start: 04-08-2025 End: 04-08-2025 Office outpatient visit 15 minutes Delisa Cannon MD Work Phone: OB/Gynecology Comment on above: Supervision of high risk in second trimester (HCC) (Primary Dx); Hypothyroidism, unspecified type; 23 weeks gestation of (HCC); Screening for diabetes mellitus; Encounter for supervision of normal first in third trimester (HCC) Start: 04-08-2025 End: 04-08-2025 ambulatory DELISA CANNON Facility:[facility] Start: 03-30-2025 End: 03-30-2025 Telephone encounter Uzma Miles MD Work Phone: OB/Gynecology Comment on above: Patient Update Start: 03-29-2025 End: 03-29-2025 Telephone encounter Robyn Forde APRN.CNM Work Phone: OB/Gynecology Comment on above: OB Lyme's Disease Start: 03-29-2025 End: 03-29-2025 Patient encounter procedure Otoniel Liriano [facility] Work Phone: Start: 03-29-2025 End: 03-29-2025 ambulatory No Primary Care Physician [facility] Work Phone: Start: 03-12-2025 End: 03-12-2025 Patient encounter procedure [employer] W[facility] Mob Maternal Medicine Comment on above: Encounter for anatomic survey (HCC) (Primary Dx); 19 weeks gestation of (HCC) Encounter for superv ision of high risk in first trimester, antepartum (HCC) (Primary Dx); 19 weeks gestation of (HCC); Nausea/vomiting in (HCC); Hypothyroidism, unspecified type Start: 03-12-2025 End: 03-12-2025 ambulatory HUSEYIN OROURKE Facility:[facility] Start: 03-07-2025 End: 03-08-2025 Refill Huseyin Orourke APRN.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 Work Phone: OB/Gynecology Comment on above: Refill Request Start: 02-05-2025 End: 02-05-2025 ambulatory NAOMY KOWALSKI Facility:[facility] Start: 01-29-2025 End: 01-29-2025 ambulatory SELF Facility:[facility] Start: 01-05-2025 End: 01-05-2025 ambulatory HUSEYIN OROURKE Facility:[facility] Start: 12-28-2024 End: 12-28-2024 Follow-up encounter Huseyin Orourke APRN.CNP Work Phone: OB/Gynecology Start: 12-17-2024 End: 12-17-2024 ambulatory SELF Facility:[facility] Start: 12-17-2024 End: 12-17-2024 Patient encounter procedure [...] 10-31-2018 Emergency department patient visit GWYN BARRAGAN [facility] Start: 10-25-2015 Patient encounter status Huseyin Orourke APRN.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 Work Phone: [facility] Procedures Date Procedure Procedure Detail Performing Clinician Start: 06-17-2025 RSV VACCINE, BIVALEN T (ABRYSVO) Kacy Garcia MD Work Phone: Start: 06-02-2025 Us preg uterus after 1st trimest 1/1st gestation Huseyin Orourke APRN.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 Work Phone: Start: 03-12-2025 Us preg uterus after 1st trimest 1/1st gestation Huseyin Orourke APRN.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 Work Phone: Start: 01-05-2025 Antibody screen NAOMY KOWALSKI Comment on above: Order Comment: Speci men Type: BLOOD SPECIMENOrdering Facility: [facility] Address: [address] [place] [address] Performed By: #### T SPN ####[facility] BLOOD BANKCLIA [id number] [place] [address] [place] Start: 12-17-2024 Us uterus l imited 1/> fetuses Huseyin Orourke APRN.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 Work Phone: Start: 12-04-2024 SARS-CoV-2, Influenz a & RSV (PCR) No Primary Care Physician Start: 12-04-2024 Urnls dip stick/tabl et reagent auto microscopy No Primary Care Physician Plan of Treatment Date Care Activity Detail Author Start: 2069 RSV Vaccine (1 - 1-dose 75+ series) RSV Vaccine (1 - 1-dose 75+ series) [facility] Start: 06-02-2035 Urine microalbumin profile DTaP,Tdap,Td Vaccine (2 - Td or Tdap) [facility] Start: 12-17-2029 Screening for malignant neoplasm of cervix Cervical Cancer Screening [facility] Start: 08-10-2025 End: 08-10-2025 Follow-up encounter 08/10/2025 1:00 PM [facility] BLOOD MANAGEMENT [address] [place] [address] Naomy Kowalski PA-C [address] [place], [place] [id number] 8 week follow-up BLOOD MANAGEMENT Comment on above: 8 week follow-up Start: 08-05-2025 End: 11-04-2025 CBC W Auto Differential panel - Blood COMPLETE BLOOD COUNT AND DIFFERENTIAL Lab Routine Maternal iron deficiency anemia complicating , third trimester (HCC) Expected: 08/05/2025 (Approximate), Expires: 11/04/2025 [facility] Comment on above: Expected: 08/05/2025 (Approximate), Expi res: 11/04/2025 Start: 08-05-2025 End: 11-04-2025 Cobalamin (Vitamin B12) [Mass/volume] in Serum or Plasma VITAMIN B12 Lab Routine Maternal iron deficiency anemia complicating , third trimester (HCC) Expected: 08/05/2025 (Approximate), Expires: 11/04/2025 [facility] Comment on above: Expected: 08/05/2025 (Approximate), Expi res: 11/04/2025 Start: 08-05-2025 End: 11-04-2025 Ferritin [Mass/volume] in Serum or Plasma FERRITIN Lab Routine Maternal iron deficiency anemia complicating , third trimester (HCC) Expected: 08/05/2025 (Approximate), Expires: 11/04/2025 [facility] Comment on above: Expected: 08/05/2025 (Approximate), Expi res: 11/04/2025 Start: 08-05-2025 End: 11-04-2025 Folate [Mass/volume] in Serum or Plasma FOLATE, SERUM Lab Routine Maternal iron deficiency anemia complicating , third trimester (HCC) Expected: 08/05/2025 (Approximate), Expires: 11/04/2025 [facility] Comment on above: Expected: 08/05/2025 (Approximate), Expi res: 11/04/2025 Start: 08-05-2025 End: 11-04-2025 Iron and Iron binding capacity panel - Serum or Plasma IRON AND TIBC Lab Routine Maternal iron deficiency anemia complicating , third trimester (HCC) Expected: 08/05/2025 (Approximate), Expires: 11/04/2025 [facility] Comment on above: Expected: 08/05/2025 (Approximate), Expi res: 11/04/2025 Start: 07-30-2025 End: 07-30-2025 Patient encounter procedure 07/30/2025 10:40 AM EDT Routine Office Visit OB/Gynecology [address] [place] [address] Delisa Cannon MD [address] [place] [address] OB OB/Gynecology Comment on above: OB Start: 07-22-2025 End: 07-22-2025 Patient encounter procedure 07/22/2025 10:40 AM EDT Routine Office Visit OB/Gynecology [address] [place] [address] Lucy Vargas MD [address] [place] [address] OB OB/Gynecology Comment on above: OB Start: 07-16-2025 End: 07-16-2025 Patient encounter procedure 07/16/2025 10:40 AM EDT Routine Office Visit OB/Gynecology [address] [place] [address] Lucy Vargas MD [address] [place] [address] OB OB/Gynecology Comment on above: OB Start: 07-08-2025 End: 07-08-2025 Patient encounter procedure 07/08/2025 10:40 AM EDT Routine Office Visit OB/Gynecology [address] [place] [address] Lucy Vargas MD [address] [place] [address] OB OB/Gynecology Comment on above: OB Start: 07-02-2025 End: 07-02-2025 Patient encounter procedure Maternal Medicine Comment on above: Growth Growth/OB Start: 06-25-2025 End: 06-25-2025 ambulatory 06/25/2025 1:30 PM EDT [facility]fusion [facility] Hematology/Oncology [address] [place] [address] 2nd Hematology/Oncology Comment on above: 2nd Start: 06-23-2025 End: 06-23-2025 ambulatory 06/23/2025 10:00 AM EDT Infusion Center Hematology/Oncology [address] [place] [address] 2nd Hematology/Oncology Comment on above: 2nd Start: 06-21-2025 End: 06-21-2025 ambulatory 06/21/2025 1:30 PM EDT Infusion Center Hematology/Oncology [address] [place] [address] 2nd Hematology/Oncology Comment on above: 2nd Start: 06-17-2025 End: 06-17-2025 Patient encounter procedure 06/17/2025 10:50 AM EDT Routine Office Visit OB/Gynecology [address] [place] [address] Kacy Garcia MD [address] [place] [address] OB OB/Gynecology Comment on above: OB Start: 06-10-2025 End: 06-10-2025 Patient encounter procedure 06/10/2025 2:20 PM EDT [facility] BLOOD MANAGEMENT [address] [place] [address] Naomy Kowalski PA-C [address] [place], [place] [id number] Anemia BLOOD MANAGEMENT Comment on above: Anemia Start: 06-10-2025 End: 09-09-2025 Cobalamin (Vitamin B12) [Mass/volume] in Serum or Plasma VITAMIN B12 Lab Routine Maternal iron deficiency anemia complicating , third trimester (HCC) Expected: 06/10/2025 (Approximate), Expires: 09/09/2025 [facility] Comment on above: Expected: 06/10/2025 (Approximate), Expi res: 09/09/2025 Start: 06-10-2025 End: 09-09-2025 Ferritin [Mass/volume] in Serum or Plasma FERRITIN Lab Routine Maternal iron deficiency anemia complicating , third trimester (HCC) Expected: 06/10/2025 (Approximate), Expires: 09/09/2025 [facility] Comment on above: Expected: 06/10/2025 (Approximate), Expi res: 09/09/2025 Start: 06-10-2025 End: 09-09-2025 Folate [Mass/volume] in Serum or Plasma FOLATE, SERUM Lab Routine Maternal iron deficiency anemia complicating , third trimester (HCC) Expected: 06/10/2025 (Approximate), Expires: 09/09/2025 [facility] Comment on above: Expected: 06/10/2025 (Approximate), Expi res: 09/09/2025 Start: 06-10-2025 End: 09-09-2025 Iron and Iron binding capacity panel - Serum or Plasma IRON AND TIBC Lab Routine Maternal iron deficiency anemia complicating , third trimester (HCC) Expected: 06/10/2025 (Approximate), Expires: 09/09/2025 [facility] Work Phone: Comment on above: Expected: 06/10/2025 (Approximate), Expi res: 09/09/2025 Start: 06-07-2025 End: 09-06-2025 CBC W Auto Differential panel - Blood COMPLETE BLOOD COUNT AND DIFFERENTIAL Lab Routine Anemia complicating , third trimester (HCC) Expected: 06/07/2025, Expires: 09/06/2025 [facility] Work Phone: Comment on above: Expected: 06/07/2025, Expires: Start: 06-07-[address] [facility] Start: 06-07-2025 RSV Vaccine (1 - Risk 1-dose series) RSV Vaccine (1 - Risk 1-dose series) [facility] Start: 06-02-2025 End: 06-02-2025 Patient encounter procedure Maternal Medicine Comment on above: Growth Growth/OB Start: 06-02-2025 End: 06-02-2026 OBSTETRIC ULTRASOUND WHI OBSTETRIC ULTRASOUND [facility] Anc Imaging Routine Supervision of high risk in third trimester (HCC) Anemia complicating , third trimester (HCC) Hypothyroidism, unspecified type Excessive growth affecting management of in third trimester, single or unspecified fetus (HCC) Expected: 06/02/2025, Expires: 06/02/2026 [facility] Work Phone: Comment on above: Expected: 06/02/2025, Expires: Start: 05-20-2025 End: 05-20-2026 OBSTETRIC ULTRASOUND WHI OBSTETRIC ULTRASOUND [facility] Anc Imaging Routine Supervision of high risk in third trimester (HCC) 29 weeks gestation of (HCC) Anemia complicating , third trimester (HCC) Hypothyroidism, unspecified type Lyme disease, unspecified Expected: 05/20/2025, Expires: 05/20/2026 [facility] Work Phone: Comment on above: Expected: 05/20/2025, Expires: Start: 05-20-2025 End: 05-20-2025 Patient encounter procedure 05/20/2025 7:00 AM EDT Routine Office Visit OB/Gynecology [address] [place], [place] [id number] Huseyin Orourke APRN.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 [address] [place] [address] OB OB/Gynecology Comment on above: OB Start: 05-09-2025 End: 08-08-2025 ANEMIA REFLEX PANEL ANEMIA REFLEX PANEL Lab Routine Encounter for supervision of normal first in third trimester (HCC) Expected: 05/09/2025, Expires: 08/08/2025 [facility] Comment on above: Expected: 05/09/2025, Expires: Start: 05-09-2025 End: 04-08-2026 GESTATIONAL GLUCOSE SCREEN, 1-HOUR, 50 GRAM, NON-FASTING GESTATIONAL GLUCOSE SCREEN, 1-HOUR, 50 GRAM, NON-FASTING Lab Routine Screening for diabetes mellitus Expected: 05/09/2025, Expires: 04/08/2026 [facility] Work Phone: Comment on above: Expected: 05/09/2025, Expires: Start: 05-09-2025 End: 04-08-2026 SYPHILIS TREPONEMAL W/REFLEX SYPHILIS TREPONEMAL W/REFLEX Lab Routine Encounter for supervision of normal first in third trimester (HCC) Expected: 05/09/2025, Expires: 04/08/2026 [facility] Comment on above: Expected: 05/09/2025, Expires: Start: 05-06-2025 End: 05-06-2025 Patient encounter procedure 05/06/2025 11:15 AM EDT Routine Office Visit OB/Gynecology [address] [place] [address] Leela Lincoln APRN.CN [address] [place] [address] Glucose/OB OB/Gynecology Comment on above: Glucose/OB Start: 05-06-2025 End: 05-06-2025 ambulatory 05/06/2025 11:00 AM EDT Results Only [facility] [address] [place] [address] Glucose/lab [facility] Comment on above: Glucose/lab Start: 04-08-2025 End: 04-08-2025 Patient encounter procedure 04/08/2025 11:20 AM EDT Routine Office Visit OB/Gynecology [address] [place] [address] Delisa Cannon MD [address] [place] [address] OB OB/Gynecology Comment on above: OB Start: 03-12-2025 End: 03-12-2025 Patient encounter procedure Maternal Medicine Comment on above: anatomy OB Start: 03-12-2025 End: 06-11-2025 Thyrotropin [Units/volume] in Serum or Plasma THYROID STIMULATING HORMONE Lab Routine 19 weeks gestation of (HCC) Hypothyroidism, unspecified type Expected: 03/12/2025, Expires: 06/11/2025 [facility] Work Phone: Comment on above: Expected: 03/12/2025, Expires: Start: 01-29-2025 End: 01-29-2025 Patient encounter procedure 01/29/2025 1:10 PM EDT Routine Office Visit OB/Gynecology [address] [place] [address] Lucy Vargas MD [address] [place] [address] OB/Gynecology Comment on above: Start: 12-25-2024 End: 12-25-2024 Patient encounter procedure 12/25/2024 2:00 PM EDT Initial Office Visit OB/Gynecology [address] [place] [address] Huseyin Orourke APRN.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 [address] [place] [address] OB/Gynecology Comment on above: Start: 12-17-2024 End: 03-18-2025 ANEMIA REFLEX PANEL ANEMIA REFLEX PANEL Lab Routine Encounter for supervision of high risk in first trimester, antepartum with uncertain dates in first trimester Expected: 12/17/2024, Expires: 03/18/2025 [facility] Work Phone: Comment on above: Expected: 12/17/2024, Expires: Start: 12-17-2024 End: 03-18-2025 Chromosome 21 trisomy [Presence] in Blood or Tissue by Cytogenetics [id number] PLUS Lab Routine Encounter for supervision of high risk in first trimester, antepartum 7 weeks gestation of Expected: 12/17/2024, Expires: 03/18/2025 [facility] Comment on above: Expected: 12/17/2024, Expires: Start: 12-17-2024 End: 03-18-2025 Hemoglobin A1c in Blood HEMOGLOBIN A1C Lab Routine Encounter for supervision of high risk in first trimester, antepartum with uncertain dates in first trimester Expected: 12/17/2024, Expires: 03/18/2025 [facility] Comment on above: Expected: 12/17/2024, Expires: Start: 12-17-2024 End: 03-18-2025 Hepatitis B virus surface Ag [Presence] in Serum HEPATITIS B SURFACE ANTIGEN Lab Routine Encounter for supervision of high risk in first trimester, antepartum with uncertain dates in first trimester Expected: 12/17/2024, Expires: 03/18/2025 [facility] Comment on above: Expected: 12/17/2024, Expires: Start: 12-17-2024 End: 03-18-2025 Hepatitis C virus Ab [Presence] in Serum HEPATITIS C ANTIBODY IA WITH CONFIRMATION Lab Routine Encounter for supervision of high risk in first trimester, antepartum with uncertain dates in first trimester Expected: 12/17/2024, Expires: 03/18/2025 [facility] Comment on above: Expected: 12/17/2024, Expires: Start: 12-17-2024 End: 03-18-2025 HIV 1+2 Ab [Presence] in Serum or Plasma by Immunoassay HIV 1/2 COMBO WITH REFLEX TO DIFFERENTIATION Lab Routine Encounter for supervision of high risk in first trimester, antepartum with uncertain dates in first trimester Expected: 12/17/2024, Expires: 03/18/2025 [facility] Comment on above: Expected: 12/17/2024, Expires: Start: 12-17-2024 End: 12-17-2025 OBSTETRIC ULTRASOUND WHI OBSTETRIC ULTRASOUND WHI Anc Imaging Routine Encounter for supervision of high risk in first trimester, antepartum with uncertain dates in first trimester Expected: 12/17/2024, Expires: 12/17/2025 [facility] Comment on above: Expected: 12/17/2024, Expires: Start: 12-17-2024 End: 03-18-2025 RUBELLA IGG ANTIBODY RUBELLA IGG ANTIBODY Lab Routine Encounter for supervision of high risk in first trimester, antepartum with uncertain dates in first trimester Expected: 12/17/2024, Expires: 03/18/2025 [facility] Comment on above: Expected: 12/17/2024, Expires: Start: 12-17-2024 End: 03-18-2025 SYPHILIS TREPONEMAL W/REFLEX SYPHILIS TREPONEMAL W/REFLEX Lab Routine Encounter for supervision of high risk in first trimester, antepartum with uncertain dates in first trimester Expected: 12/17/2024, Expires: 03/18/2025 [facility] Comment on above: Expected: 12/17/2024, Expires: Start: 12-17-2024 End: 03-18-2025 Thyrotropin [Units/volume] in Serum or Plasma THYROID STIMULATING HORMONE Lab Routine Hypothyroidism affecting in first trimester Expected: 12/17/2024, Expires: 03/18/2025 [facility] Comment on above: Expected: 12/17/2024, Expires: Start: 12-17-2024 End: 03-18-2025 Thyroxine (T4) free [Mass/volume] in Serum or Plasma T4 FREE/FREE THYROXINE Lab Routine Hypothyroidism affecting in first trimester Expected: 12/17/2024, Expires: 03/18/2025 [facility] Comment on above: Expected: 12/17/2024, Expires: Start: 12-17-2024 End: 03-18-2025 TYPE + SCREEN TYPE + SCREEN Blood Bank Routine Encounter for supervision of high risk in first trimester, antepartum with uncertain dates in first trimester Expected: 12/17/2024, Expires: 03/18/2025 [facility] Comment on above: Expected: 12/17/2024, Expires: Start: 12-17-2024 End: 12-17-2024 Patient encounter procedure OB/Gynecology Comment on above: Start: 12-04-2024 [facility] Start: 06-07-2024 Covid-19 Vaccine ( season) Covid-19 Vaccine ( season) [facility] Start: 06-07-2024 Influenza vaccination Influenza Vaccine (#1) [facility] Start: 2021 HPV Vaccine (1 - 3-dose SCDM series) HPV Vaccine (1 - 3-dose SCDM series) [facility] Start: 05-31-2021 Cyanocobalamin vitamin b-12 VITAMIN B12 AND FOLATES (93277) [facility] Work Phone: Start: 05-31-2021 Assay of ferritin FERRITIN (67088) [facility]; [facility] Work Phone: Start: 05-31-2021 Iron binding capacity IRON BINDING CAPACITY (TIBC) (68920) [facility]; [facility] Work Phone: Start: 05-31-2021 Assay of iron IRON & TOTAL IRON BINDING CAPACITY (61469) [facility]; [facility] Work Phone: Start: 05-31-2021 Provider Instructions for Treatment Follow up in 6 weeks [facility] Work Phone: Start: 05-10-2021 Procedure Education Eprescribed prescriptions (G8553) [facility]; [facility] Work Phone: Start: 2015 Screening for malignant neoplasm of cervix Cervical Cancer Screening [facility] Start: 2013 Hepatitis B Vaccine (1 of 3 - 19+ 3-dose series) Hepatitis B Vaccine (1 of 3 - 19+ 3-dose series) [facility] Start: 2013 Urine microalbumin profile DTaP,Tdap,Td Vaccine (1 - Tdap) [facility] Start: 2012 Annual PCP Team Chronic Disease Visit Annual PCP Team Chronic Disease Visit [facility] Start: 2012 Anxiety Screening Anxiety Screening [facility] Start: 2012 Depression Screening Depression Screening [facility] Start: 2012 Hepatitis C screening Hepatitis C Screening [facility] Start: 2012 HIV screening HIV Screening [facility] Bacteria identified in Urine by Culture BACTERIAL CULTURE, URINE Microbiology Routine Encounter for supervision of high risk in first trimester, antepartum with uncertain dates in first trimester 12/17/2024 11:[address] [facility] Chlamydia trachomatis+Neisseria gonorrhoeae DNA [Presence] in Unspecified specimen by KYLIE with probe detection GONORRHEA/CHLAMYDIA NAAT Lab Routine Encounter for supervision of high risk in first trimester, antepartum Screen for STD (sexually transmitted disease) 12/17/2024 11:[address] [facility] PAP TEST PAP TEST Lab Rou nathaniel Encounter for supervision of high risk in first trimester, antepartum Screening for cervical cancer Encounter for screening for human papillomavirus (HPV) 12/17/2024 11:[address] [facility] Patient Education 1st Trimester [facility] Work Phone: Patient referral [facility] Work Phone: TRICHOMONAS VAGINALI S NAAT TRICHOMONAS VAGINALIS NAAT Lab Routine Encounter for supervision of high risk in first trimester, antepartum Screen for STD (sexually transmitted disease) 12/17/2024 11:[address] [facility] Work Phone: Immunizations Immunization Date Immunization Notes Care Provider Fa [facility] 06-17-2025 respiratory syncytia l virus (RSV) vaccine, bivalent (ABRYSVO) Kacy Garcia MD Work Phone: [facility] 06-02-2025 tetanus toxoid, reduced diphtheria toxoid, and acellular pertussis vaccine, adsorbed Lucy Vargas MD Work Phone: [facility] 10-07-2018 tetanus toxoid, adsorbed Carlene Lucas [facility] Work Phone: [facility]; [facility] Work Phone: 10-25-2015 influenza, injectabl e, quadrivalent, contains preservative Huseyin Orourke APRN.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 Work Phone: [facility] Work Phone: 10-25-2015 influenza virus vaccine, unspecified formulation Huseyin Orourke APRN.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 Work Phone: [facility] 11-27-2012 measles, mumps and rubella virus vaccine Huseyin Orourke APRN.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 Work Phone: [facility] 08-14-2012 influenza virus vaccine, unspecified formulation Huseyin Orourke 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 Work Phone: [facility] Payers Date Payer Category Payer Medicaid [employer] [address] [employer] [place] [id number] 2025 Medicaid [id number] 2024 Self-pay 2024 Worker's Compensation [id number] 1994 Unknown [id number] Unknown [facility] [place] [facility] Unknown [employer] [place] [id number] Unknown [id number] Unknown [id number] Unknown [id number] Social History Date Type Detail Facility Alcohol Use: Alcohol Use: [facility] Work Phone: Start: 05-08-2015 End: 12-17-2024 Caffeine Use Caffeine Use [facility]; [facility] Work Phone: Comment on above: 1 daily Exercise History: Exercise History: [facility]pr [facility]; [facility] Work Phone: Start: 01-13-2013 End: 12-04-2024 Tobacco smoking status NHIS Never smoked tobacco [facility] Start: 01-13-2013 Tobacco use and exposure Smokeless tobacco non-user [facility] Start: 05-24-2022 End: 12-11-2024 Alcoholic beverage intake Current non-drinker of alcohol (finding) [facility] Start: 05-08-2015 End: 12-17-[address] [facility] Start: 1995 Sex assigned at Not on file [facility] Start: 12-15-2024 End: 06-10-2025 Alcoholic beverage intake Ex-drinker (finding) [facility] Start: 12-15-[address] [facility] Start: 11-09-2024 [facility] Start: 09-07-2012 National Score (1-100), lower number is lower risk 76 [facility] Start: 1995 Sex Assigned At Female [facility] Goals Date Patient Goal Desired Activity /State Personal health goal Clinical Notes 12-04-2024 to 07-22-2025 Quick Notes - Kacy Garcia MD - 06/17/2025 10:55 AM EDTPrenatal Quick Notes - Kacy Garcia MD - 06/17/2025 10:55 AM EDTPatient InstructionsPatient InstructionsPatient Instructions Note Date & Type Note Facility 07-22-2025 Note HNO ID: [id number] Author: RACHEL TRIVEDI MA Service: ? Author Type: Chief Lock Tender Operator Type: Progress Notes Filed: 07/22/2025 08:31 Note Text: POPULATION HEALTH NAVIGATION OUTREACH Action/ 2nd attempt: Called and left message to call back. Reason for Outreach Medicaid OB/Peds Care Gaps due: N/A Patient Contacted: Unable or unnecessary to reach patient: Unable to reach patient Left message Navigation Signature: Rachel Benavidez MA July 22, 2025 8:30 AM [facility] 07-20-2025 Note HNO ID: [id number] Author: RACHEL TRIVEDI MA Service: ? Author Type: Chief Lock Tender Operator Type: Progress Notes Filed: 07/20/2025 13:55 Note Text: POPULATION HEALTH NAVIGATION OUTREACH Action/I 1st attempt: Called and left message to call back to discuss electrophysiology technician. MC message sent. Reason for Outreach Medicaid OB/Peds Care Gaps due: N/A Patient Contacted: Unable or unnecessary to reach patient: Unable to reach patient Left message [email or web address] message sent Navigation Signature: Rachel Benavidez MA July 20, 2025 12:22 PM [facility] 07-20-2025 Note Patient Outreach (NE TNAV) HILARY HORTA ([id number]) 1995 F Date Time Provider Department 07/20/25 RACHEL TRIVEDI During your visit today, we recorded the following information about you: Rachel Trivedi MA 07/20/2025 1:55 PM Signed POPULATION HEALTH NAVIGATION OUTREACH Action/ 1st attempt: Called and left message to call back to discuss electrophysiology technician. MC message sent. Reason for Outreach Medicaid OB/Peds Care Gaps due: N/A Patient Contacted: Unable or unnecessary to reach patient: Unable to reach patient Left message [email or web address] message sent Navigation Signature: Rachel Benavidez MA [...] Encounter Status:Closed by RACHEL TRIVEDI on 07/20/25 [facility] 06-17-2025 Progress note Formatting of t his [...] PTL & FM precautions Kacy Garcia MD [facility] 06-17-2025 Miscellaneous Notes KJ - S: Hilary [...] Kacy Garcia MD documented in this encounter [facility] 06-17-2025 Instructions Josh Villegas LPN - 06/17/2025 10:42 AM EDT SEQUENTIAL SCREENINGS The [facility] offers sequential screenings for women who are [...] It will require an appointment with our endoscopy technician. This is not an ultrasound performed [...] the above symptoms, contact our office at [phone] and ask to speak with a nurse. After hours, you can call doctors registry at [phone] OR call [facility] at [phone] and ask to have the doctor diamond driller paged. If you consider this an emergency, dial 3-3-4 or go to your nearest emergency department. NEED HELP? Are you dealing with a violent or abusive relationship? Are you a victim of rape or sexual assult? Call [facility] ([place]) 24 hour Crisis Hotline: 646.606.4266 or 216-429-3890. MANUAL Your Guide to a Healthy manual is now on-line. Visit [email or web address] to download your free copy documented in this encounter [facility] 06-17-2025 Telephone encounter Note Refill request received via [email or web address]. Patient [id number], last seen 06/02, has appointment today with you. Patient comment: Once a day Ananya Vaz RN [facility] [facility] 06-17-2025 Miscellaneous Notes Refill request received via [email or web address]. Patient 33w3d, last seen 06/02, has appointment today with you. Patient comment: Once a day Ananya Vaz RN documented in this encounter [facility] 06-11-2025 Note HNO ID: [id number] Author: ?, ?, ? Service: ? Author Type: ? Type: Progress Notes Filed: 06/11/2025 13:44 Note Text: 1ST attempt. Message left for patient to contact office and schedule 1 hour infusions on 2nd floor. 2nd IRON SUCROSE/1-4/ORDERING PROV DEX* [facility] 06-10-2025 Instructions Naomy Kowalski PA-C - 06/10/2025 2:43 PM EDT Images from the original note were not included. Summary of today's visit: - You have iron deficiency anemia and require IV iron infusions. - We are in the process of arranging IV iron infusions for you at [facility]. Once the clinic has processed the referral, someone will contact you to schedule appointments. Insurance preauthorization may be required and can take 7 - 14 days. Please call the infusion center directly at [phone] to schedule an appointment if you don't receive a call within a week. - We need new iron labs for insurance approval. Please go to any [facility] lab in the next few days to have iron labs completed. We will also check Vitamin B12 and folate labs. - I will send you a [email or web address] message once I have received and reviewed [...] with multiples. Not consuming enough iron. Having kvoa-us-cfsm pregnancies with minimal time between. Experiencing a [...] notice a change? If you have iron-deficiency, D36-llrtithonq or folate-deficiency anemia, you should begin to [...] any other symptoms, talk to your provider. Proctor / Prognosis What is the outlook for [...] best supplement for you. A note from [facility] You may be slightly anemic during because blood volume increases by 20% to 30%. Keeping your diet rich in iron, vitamin C and B vitamins helps correct and prevent anemia. Taking a daily vitamin can help, too. Talk to your provider about your risk of anemia during and any concerns you may have. Information obtained from: [facility] (https://my.[facility].org/h ealt/diseases/03485-gcpdpo-cetrs g-). References Arabella-Henry Danielle MM. The impact of maternal iron deficiency and iron deficiency anemia on child's health (https://www.ncbi.nlm.nih.gov/pmc /articles/ADD9366291/). [place] Med J. 2015;36(2):146-149. Accessed 03/01/2022. [place] [employer]astroenter[employer]. Peptic Ulcer Disease (https://gi.org/topics/peptic-ulc er-disease/). Accessed 03/01/2022. [place] Association. Anemia During (https://americanpregnancy.org/he althy-/-concern s/fueaeu-hseshj-jmtzjzxjp/). Accessed 03/01/2022. [place] Society of Hematology. Anemia and (https://www.hematology.org/educa tion/patients/anemia/). Accessed 03/01/2022. Roberta Huerta. Chronic Anemia (https://www.ncbi.nlm.nih.gov/maldonado ks/EAY269618/). [Updated 2020May 17]. In: Thermal Nomad [Internet]. [facility]): nivio; 2020. Accessed 03/01/2022. March of Dimes. Anemia (https://www.marchofdimes.org/com plications/anemia.aspx). Accessed 03/01/2022. National [place] of Diabetes and Digestive and Kidney Diseases. [...] can easily correct the condition with treatment. Proctor / Prognosis What s the outlook for [...] need to see another specialist like a quality liaison or associate store leader if bleeding is determined to be the [...] start to feel better? A note from [facility] We all have days when our responsibilities outweigh the amount of energy we have. But if you have iron-deficiency anemia, you might not be able to shake those feelings of fatigue. Tell your healthcare provider if you re tired all the time. They can run tests to determine a cause and recommend appropriate treatment. Information obtained from [facility] (https://my.[facility]/ ealth/diseases/18259-gvwf-lwcrwdd ncy-anemia) References [place] Society of Hematology. Iron (https://www.hematology.org/educa tion/patients/anemia/iron-deficie ncy)- (https://www.hematology.org/educa tion/patients/anemia/iron-deficie ncy)Deficiency Anemia (https://www.hematology.org/educa tion/patients/anemia/iron-deficie ncy). (https://www.hematology.org/educa tion/patients/anemia/iron-deficie ncy) Accessed 09/16/2024. MicroQuant Manual, Professional Version. Iron Deficiency Anemia (https://www.Bitfury Group/pro fessional/ongywnwxch-aqt-wgpabsfg /ibmeesu-vopdwd-ry-deficient-eryt hropoiesis/glgs-nrmopkmtfs-qsvrnw ). (https://www.[employer]fury [employer]/pro fessional/juqlscqllt-iyp-gsdimzpu /ylamdew-rwlkvz-id-deficient-eryt hropoiesis/zzux-ymlxosfqoy-ozhclq ) Last reviewed 03/2023. Accessed 09/16/2024. National Heart, Lung, and Blood [place] (U.S.). Iron (https://www.nhlbi.nih.gov/health /anemia/mgjz-mxgfmnohgy-xdwlsu)- (https://www.nhlbi.nih.gov/health /anemia/xbla-bgsgmomamu-vsywsr)De ficiency Anemia (https://www.nhlbi.nih.gov/health /anemia/khil-jgfxlrddbj-jihaqi). (https://www.nhlbi.nih.gov/health /anemia/qoni-auulospune-nozjwd) Last updated 12/28/2021. Accessed 09/16/2024. Clara Dumas. Iron Supplementation (https://www.ncbi.nlm.nih.gov/maldonado ks/KYY199501/). (https://www.ncbi.nlm.nih.gov/maldonado ks/ZEV107004/) In: Thermal Nomad [Internet]. [facility]): nivio; 2023-. Accessed 09/16/2024. Iron Infusion Iron is [...] rash over your entire body). Recovery and Proctor How long does it take to recover from an iron infusion? People usually feel better a few days to a week after an iron infusion. When To Call the Doctor When should I see my healthcare provider? Contact your provider if you have side effects that you can t manage. A note from [facility] Taking iron supplements by mouth works for [...] that isn t clear. Information obtained from [facility] (https://my.[facility].org/ ealt/treatments/70116-mhtjtxrfel x-ldse-muuraprvkmsdflj) References [place] Society of Hematology. Iron-Deficiency Anemia (http://www.hematology.org/Patien ts/Anemia/Iron-Deficiency.aspx). Accessed 06/05/2023. Gregory Gabriel. Iron infusion and newer intravenous iron formulations (https://pubmed.ncbi.nlm.nih.gov/ 10623045/). Chin Med J (Engl). 2020;134(15):4177-3181. Published 2020March 03. Accessed 06/05/2023. MicroQuant Manual Professional Version. Iron Deficiency Anemia (https://www.Webjam.BioMotiv/pro fessional/ectuquxtfq-bjl-gccrodmf /tmbygsl-fqpzkb-ys-deficient-eryt hropoiesis/ihfm-qoqsewmgun-bvvxfl ). Last revised 03/2023. Accessed 06/05/2023. National Heart, Lung, and Blood [place] (U.S.). Multiple pages reviewed. National Library of Medicine (U.S.). Dailymed. Ferumoxytol injection (https://dailymed.Ewirelessgear.Courtanet.gov/anna lymed/drugInfo.cfm?setid=ow84m6cl -12a8-2zq7-li89-9d31mc813w18&rhoda ence=consumer). Last revised 04/02/2022. Accessed 06/05/2023. TearSolutions Library of shopa (U.S.). LendLayer. Monoferric -- ferric derisomaltose injection, solution (https://Thomas Golf.Ewirelessgear.Courtanet.gov/anna lymed/drugInfo.cfm?jtecu=32384f9a -5094-6gn8-c94p6ls3-h33s-g972nofr57sp). Last revised 05/25/2022. Accessed 06/05/2023. Kathy T, Ben C, Beatrice CABAN, et al. Questions and answers on iron deficiency treatment selection and the use of intravenous iron in routine clinical practice (https://pubmed.ncbi.nlm.nih.gov/ 89565795/). Yue Med. 2020;53(1):274-285. Accessed 06/05/2023. Iron sucrose: [...] may report side effects to FDA at [phone]. Where should I keep my medication? This medication is given in a hospital or clinic and will not be stored at home. NOTE: This sheet is a summary. It may not cover all possible information. If you have questions about this medicine, talk to your doctor, pharmacist, or health care provider. Information obtained from [facility] (https://my.[facility].org/ ealth/drugs/15324-zgpx-jrzdzow-rb jection) documented in this encounter [facility] 06-10-2025 History of Present illness Narrative [facility] DEPARTMENT OF PATIENT BLOOD MANAGEMENT INITIAL DISTANCE HEALTH VISIT I have communicated my name and active licensure. The patient's identity and physical location were verified at the time of this visit. Patient or their legal customer service representative teacher has been informed of the risks and benefits of -- and alternatives to -- treatment through a remote evaluation and consents to proceed with the evaluation remotely. This is a virtual visit using Metconnexom Video Visit. It required patient-provider interaction for [...] denies EtOH use. Lifetime nonsmoker. Lives in [place], [place]. 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 [...] infusion x 4 doses was signed for [place] location. - Recommend to recheck labs (CBC, [...] which included preparing to see the patient, alsb-tg-frkm patient care, completing clinical documentation, counseling and educating the patient/family/caregiver, ordering medications, tests, or procedures, independently interpreting results (not separately reported), communicating results to the patient/family/caregiver, and care coordination (not separately reported) Naomy Kowalski PA-C Department of Blood Management 06/10/25 CC: Referring Provider: Delisa Cannon MD documented in this encounter [facility] 06-10-2025 Note HNO ID: [id number] Author: NAOMY KOWALSKI PA-C Service: ? Author Type: Physician Parking Lot Laborer Type: Progress Notes Filed: 06/10/2025 14:45 Note Text: [facility] DEPARTMENT OF PATIENT BLOOD MANAGEMENT INITIAL DISTANCE HEALTH VISIT I have communicated my name and active licensure. The patient's identity and physical location were verified at the time of this visit. Patient or their legal customer service representative teacher has been informed of the risks and benefits of -- and alternatives to -- treatment through a remote evaluation and consents to proceed with the evaluation remotely. This is a virtual visit using Metconnexom Video Visit. It required patient-provider interaction for [...] denies EtOH use. Lifetime nonsmoker. Lives in [place], [place]. 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 Independent with ADLs. Medical/Surgical [...] Value Ref Ra (more content not included)... [facility] 06-03-2025 Note Indication Evaluation of growth Lyme [...] 1 oz EFW by: Hadlock (HC-AC-FL) Extended Chlorine Plant Operator 8.3 mm Extremities / Bony Struc FL [...] to date 4. 31 weeks gestation of ([facility]) - ICD9: V22.2, ICD10: Z3A.31 5. Need for vaccination - ICD9: V05.9, ICD10: Z23 tdap today growth is 98%. Plan repeat US in 4 weeks Lucy Vargas MD [facility] 06-02-2025 Miscellaneous Notes RR- VB No. LOF No. CTXS No. Movement: present. Other c/o: No. Medication list reviewed. SENSITIVE EXAM: Sensitive exam not performed. Physical Exam See Flow Sheet Abd: soft, nontender, gravid Ext: edema: Trace A/P 31w2d Estimated Date of Delivery: 08/02/25 ASSESSMENT/PLAN: 1. Supervision of high risk in third trimester ([facility]) - ICD9: V23.9, ICD10: O09.93 (primary diagnosis) kick counts 2. Anemia complicating , third trimester ([facility]) - ICD9: 648.23, 285.9, ICD10: O99.013 on fe rich foods and seeing blood management cbc today 3. Hypothyroidism, unspecified type - ICD9: 244.9, ICD10: E03.9 tsh up to date 4. 31 weeks gestation of ([facility]) - ICD9: V22.2, ICD10: Z3A.31 5. Need for vaccination - ICD9: V05.9, ICD10: Z23 tdap today growth is 98%. Plan repeat US in 4 weeks Lucy Vargas MD documented in this encounter [facility] 06-02-2025 Note HNO ID: [id number] Author: ELVIA BLOUNT MA Service: ? Author Type: Chief Lock Tender Operator Type: Progress Notes Filed: 06/02/2025 16:02 Note [...] severely ill: Yes Patient denies history of Guillain-[place] Syndrome (a severe paralytic illness): Yes Tdap Adacel injection was given without incident. See immunizations for details of immunizations administered today. VIS sheet provided: Yes Provider Alicia was present in office at time of injection. Elvia Blount MA [facility] 06-02-2025 History of Present illness Narrative Patient [...] severely ill: Yes Patient denies history of Guillain-[place] Syndrome (a severe paralytic illness): Yes Tdap Adacel injection was given without incident. See immunizations for details of immunizations administered today. VIS sheet provided: Yes Provider Alicia was present in office at time of injection. Elvia Blount MA documented in this encounter [facility] 06-02-2025 Instructions Elvia Blount MA - 06/02/2025 2:51 PM EDT SEQUENTIAL SCREENINGS The [facility] offers sequential screenings for women who are [...] It will require an appointment with our endoscopy technician. This is not an ultrasound performed [...] the above symptoms, contact our office at [phone] and ask to speak with a nurse. After hours, you can call doctors registry at [phone] OR call [facility] at [phone] and ask to have the doctor diamond driller paged. If you consider this an emergency, dial 4 or go to your nearest emergency department. NEED HELP? Are you dealing with a violent or abusive relationship? Are you a victim of rape or sexual assult? Call [facility] ([place]) 24 hour Crisis Hotline: 878.277.5520 or 286-773-8966. MANUAL Your Guide to a Healthy manual is now on-line. Visit [email or web address] ncyGuide to download your free copy documented in this encounter [facility] 05-20-2025 Progress note Formatting of t his [...] Supervision of high risk in third trimester ([facility]) - ICD9: V23.9, ICD10: O09.93 (primary diagnosis) - Continue LDA and PNV 2. 29 weeks gestation of ([facility]) - ICD9: V22.2, ICD10: Z3A.29 - 28 week labs reviewed 3. Anemia complicating , third trimester ([facility]) - ICD9: 648.23, 285.9, ICD10: O99.013 - [...] weeks or sooner as needed. Huseyin Orourke APRN.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 [facility] 05-20-2025 Miscellaneous Notes EH - S: Hilary [...] Supervision of high risk in third trimester ([facility]) - ICD9: V23.9, ICD10: O09.93 (primary diagnosis) - Continue LDA and PNV 2. 29 weeks gestation of ([facility]) - ICD9: V22.2, ICD10: Z3A.29 - 28 week labs reviewed 3. Anemia complicating , third trimester ([facility]) - ICD9: 648.23, 285.9, ICD10: O99.013 - [...] weeks or sooner as needed. Huseyin Orourke APRN.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 documented in this encounter [facility] 05-20-2025 Instructions Donita Morales LPN - 05/20/2025 6:55 AM EDT SEQUENTIAL SCREENINGS The [facility] offers sequential screenings for women who are [...] It will require an appointment with our endoscopy technician. This is not an ultrasound performed [...] the above symptoms, contact our office at [phone] and ask to speak with a nurse. After hours, you can call doctors registry at [phone] OR call [facility] at [phone] and ask to have the doctor diamond driller paged. If you consider this an emergency, dial 9-1-1 or go to your nearest emergency department. NEED HELP? Are you dealing with a violent or abusive relationship? Are you a victim of rape or sexual assult? Call [facility] ([place]) 24 hour Crisis Hotline: 700.554.7653 or 245-002-0104. MANUAL Your Guide to a Healthy manual is now on-line. Visit [email or web address] ncyGuide to download your free copy documented in this encounter [facility] 05-19-2025 Telephone encounter Note Last OV 05/06/25 . Please address in SW absence. Requested Prescriptions Pending Prescriptions Disp Refills ondansetron orally disintegrating (ZOFRAN ODT) 4 mg disintegrating tablet 30 tablet 0 Sig: Take 1 tablet by mouth every 8 hours as needed for nausea/vomiting. Lv Del Castillo RN [facility] 05-19-2025 Miscellaneous Notes Last OV 05/06/25 . Please address in SW absence. Requested Prescriptions Pending Prescriptions Disp Refills ondansetron orally disintegrating (ZOFRAN ODT) 4 mg disintegrating tablet 30 tablet 0 Sig: Take 1 tablet by mouth every 8 hours as needed for nausea/vomiting. Lv Del Castillo RN documented in this encounter [facility] 05-17-2025 Telephone encounter Note Order placed [facility] 05-17-2025 Miscellaneous Notes Order placed 29w0d documented in this encounter [facility] 05-17-2025 Telephone encounter Note 29w0d [facility] 05-06-2025 Progress note Formatting of t his [...] or sooner if needed Leela Lincoln APRN.CNM [facility] 05-06-2025 Miscellaneous Notes S: Hilary Horta is [...] Leela Lincoln APRN.CNM documented in this encounter [facility] 05-06-2025 Instructions Sydnee Melton MA - 05/06/2025 11:28 AM EDT SEQUENTIAL SCREENINGS The [facility] offers sequential screenings for women who are [...] It will require an appointment with our endoscopy technician. This is not an ultrasound performed [...] the above symptoms, contact our office at [phone] and ask to speak with a nurse. After hours, you can call doctors registry at [phone] OR call [facility] at [phone] and ask to have the doctor diamond driller paged. If you consider this an emergency, dial 3-0-5 or go to your nearest emergency department. NEED HELP? Are you dealing with a violent or abusive relationship? Are you a victim of rape or sexual assult? Call [facility] ([place]) 24 hour Crisis Hotline: 321.986.9447 or 244-360-3446. MANUAL Your Guide to a Healthy manual is now on-line. Visit [email or web address] ncyGuide to download your free copy documented in this encounter [facility] 04-08-2025 Progress note Formatting of t his [...] Supervision of high risk in second trimester ([facility]) - ICD9: V23.9, ICD10: O09.92 (primary diagnosis) 2. Hypothyroidism, unspecified type - ICD9: 244.9, ICD10: E03.9 TSH with 28 week labs 3. 23 weeks gestation of ([facility]) - ICD9: V22.2, ICD10: Z3A.23 4. Screening for diabetes mellitus - ICD9: V77.1, ICD10: Z13.1 - GESTATIONAL GLUCOSE SCREEN, 1-HOUR, 50 GRAM, NON-FASTING 5. Encounter for supervision of normal first in third trimester ([facility]) - ICD9: V22.0, ICD10: Z34.03 - SYPHILIS TREPONEMAL W/REFLEX - ANEMIA REFLEX PANEL Delisa Cannon MD [facility] 04-08-2025 Miscellaneous Notes S: Hilary Horta is [...] Supervision of high risk in second trimester ([facility]) - ICD9: V23.9, ICD10: O09.92 (primary diagnosis) 2. Hypothyroidism, unspecified type - ICD9: 244.9, ICD10: E03.9 TSH with 28 week labs 3. 23 weeks gestation of ([facility]) - ICD9: V22.2, ICD10: Z3A.23 4. Screening for diabetes mellitus - ICD9: V77.1, ICD10: Z13.1 - GESTATIONAL GLUCOSE SCREEN, 1-HOUR, 50 GRAM, NON-FASTING 5. Encounter for supervision of normal first in third trimester ([facility]) - ICD9: V22.0, ICD10: Z34.03 - SYPHILIS TREPONEMAL W/REFLEX - ANEMIA REFLEX PANEL Delisa Cannon MD documented in this encounter [facility] 04-08-2025 Instructions Elvia Blount MA - 04/08/2025 11:24 AM EDT SEQUENTIAL SCREENINGS The [facility] offers sequential screenings for women who are [...] It will require an appointment with our endoscopy technician. This is not an ultrasound performed [...] the above symptoms, contact our office at [phone] and ask to speak with a nurse. After hours, you can call doctors registry at [phone] OR call [facility] at [phone] and ask to have the doctor diamond driller paged. If you consider this an emergency, dial [phone]--3 or go to your nearest emergency department. NEED HELP? Are you dealing with a violent or abusive relationship? Are you a victim of rape or sexual assult? Call [facility] ([place]) 24 hour Crisis Hotline: 634.882.8058 or 539-698-3465. MANUAL Your Guide to a Healthy manual is now on-line. Visit [email or web address] ncyGuide to download your free copy documented in this encounter [facility] 03-30-2025 Telephone encounter Note Called and spoke with patient. Advised Amoxicillin is approved to take during . This was also addressed in phone note from yesterday. Delisa Saeed RN [facility] 03-30-2025 Miscellaneous Notes Called and spoke with [...] 2025 12:21 PM documented in this encounter [facility] 03-30-2025 Telephone encounter Note Patient calling in to give Dr. Miles an update about her amoxicillin dose she was give in urgent care. She was prescribed 500mg capsules 3 times daily. She wants to make sure this is okay for the baby. Please review and advise. Kathy Pham March 30, 2025 12:[address] [facility] 03-29-2025 Telephone encounter Note Pt notified. Pt [...] OB appt scheduled. Lv Del Castillo RN [facility] 03-29-2025 Miscellaneous Notes Pt notified. Pt states [...] states she visited [facility] for an insect bite this morning. She was advised by them to call our office. On her left thigh she has a bulls eye rash. She was feeling fatigue, night sweats, and migraine. Patient never saw a tick on her body. [facility] clinic is treating her Lyme's disease with a low dose of Amoxicillin THREE TIMES A DAY x 2 weeks. Patient asking what the next steps are. Asking about blood work. Next OB visit is 04/08/25. Delisa Saeed RN documented in this encounter [facility] 03-29-2025 Telephone encounter Note Recommend management with primary care for follow up. Ok to continue treatment regimen. Can also refer to infectious disease if she desires. Thanks, Robyn Forde APRN.CNM [facility] Work Phone: 03-29-2025 Telephone encounter Note 22w0d Patient states she visited the [facility] in [facility] for an insect bite this morning. She was advised by them to call our office. On her left thigh she has a bulls eye rash. She was feeling fatigue, night sweats, and migraine. Patient never saw a tick on her body. [facility] clinic is treating her Lyme's disease with a low dose of Amoxicillin THREE TIMES A DAY x 2 weeks. Patient asking what the next steps are. Asking about blood work. Next OB visit is 04/08/25. Delisa Saeed RN [facility] 03-12-2025 Progress note Formatting of t his [...] - RTO 4 w[address] Uzma Miles DO [facility] 03-12-2025 Miscellaneous Notes SW- No pain, vb, [...] Uzma Miles DO documented in this encounter [facility] 03-12-2025 Instructions Rachel Fink MA - 03/12/2025 2:55 PM EDT SEQUENTIAL SCREENINGS The [facility] offers sequential screenings for women who are [...] It will require an appointment with our endoscopy technician. This is not an ultrasound performed [...] the above symptoms, contact our office at [phone] and ask to speak with a nurse. After hours, you can call doctors registry at [phone] OR call [facility] at [phone] and ask to have the doctor diamond driller paged. If you consider this an emergency, dial 9-6 or go to your nearest emergency department. NEED HELP? Are you dealing with a violent or abusive relationship? Are you a victim of rape or sexual assult? Call [facility] ([place]) 24 hour Crisis Hotline: 945.251.9733 or 005-911-6697. MANUAL Your Guide to a Healthy manual is now on-line. Visit [email or web address] to download your free copy documented in this encounter [facility] 12-17-2024 History of Present illness Narrative Polishing Pad Mounter offered: Patient declines. INITIAL OB ASSESSMENT HPI: [...] discussed with the Patient or Patient's Authorized Batch Dumper. As applicable, any other physician, advance practice provider, medical student, or other health professional student that will be observing or involved in the sensitive examination for educational or training purposes was discussed with the Patient or Authorized Batch Dumper. The Patient or Authorized Batch Dumper has agreed to proceed with the sensitive [...] Your guide to a health and the Housing Officer. Discussed hemoglobin electrophoresis. Patient: Declines Reviewed midwifery and tank truck driver services that are available. 2) Screening: Hemoglobin [...] (28-30 weeks): [] Consent [] Contraception [] Stable Hand [] TeamBirth handout Third trimester (36-40 weeks): [] GBS [] Presentation - [] Scheduled [] yes - Hibiclens, pre-op instructions, CBC, T&S ordered [] no [] H&P [] Preferences worksheet [] Scanned in EMR Hypothyroidism Affecting in First Trimester - 12/17/2024 Comment: December 17, 2024 Has been on Synthroid in the past, but not currently. TSH/T4 ordered. Huseyin Orourke APRN.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 History of Depression - 12/17/2024 Comment: December 17, 2024 Delivered first baby at 17 years old. Never took medication to treat it and did not see a therapist. Denies ever having any suicidal thoughts or thoughts of health hurting others. Huseyin Orourke APRN.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 Constipation During in First Trimester - 12/17/2024 Comment: December 17, 2024 Reviewed safe medications to take during . Huseyin Orourke APRN.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 Nausea/Vomiting in - 12/11/2024 Comment: December 17, 2024 Feeling better with Zofran and B6. Able to eat and drink. Huseyin Orourke APRN.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 December 11, 2024 - Monitor hydration status [...] Huseyin Orourke APRN.CNP documented in this encounter [facility] 12-17-2024 Note HNO ID: [id number] Author: HUSEYIN OROURKE APRN.CNP Service: ? Author Type: Nurse Practitioner Type: Progress Notes Filed: 12/17/2024 11:34 Note Text: Polishing Pad Mounter offered: Patient declines. INITIAL OB ASSESSMENT HPI: [...] hours as needed (more content not included)... [facility] 12-17-2024 Instructions Huseyin Orourke APRN.[facility] - 12/17/2024 10:54 AM EDT Please select the following link to access the [facility] Your Guide to a Healthy . [email or web address] Please contact a Patient Public Relations Intern regarding insurance questions. Please call [phone] or you can schedule a phone call by visiting [email or web address] MORNING SICKNESS IN by Silvia Garcias M.D. for Cards Off As you may already know, morning sickness can often be more appropriately called evening sickness or kpioh-ofccpk-kf-the-day sickness. While there are the jose g [...] medication, Doxylamine, is currently marketed as an frgd-dqq-malhqcg sleeping pill. Ask your practitioner if creating a vitamin B6/Doxylamine combination with hirt-jja-irohwqc medications would be safe for you. Prescription [...] Phenergan, Compazine, Reglan documented in this encounter [facility] 12-15-2024 Telephone encounter Note Completed [facility] 12-15-2024 Miscellaneous Notes Completed Left message for patient to return phone call to complete nurse intake questions for her upcoming appointment. Patient has an appointment with Huseyin Orourke for NOB appointment. Please transfer to [facility] or ms. Please do not give her a 2:00 time with me. I am unavailable then documented in this encounter [facility] 12-15-2024 Note HNO ID: [id number] Author: HUSEYIN OROURKE APRN.[facility] Service: ? [...] visit. Allergies As (more content not included)... [facility] 12-15-2024 Telephone encounter Note Left message for patient to return phone call to complete nurse intake questions for her upcoming appointment. Patient has an appointment with Huseyin Orourke for NOB appointment. Please transfer to [facility] or ms. Please do not give her a 2:00 time with me. I am unavailable then [facility] 12-11-2024 Instructions Huseyin OrourkeNAUN.[facility] - 12/11/2024 12:58 PM EST MORNING SICKNESS IN by Silvia Garcias M.D. for Cards Off As you may already know, morning sickness can often be more appropriately called evening sickness or jsowj-aheoeo-pj-the-day sickness. While there are the jose g [...] medication, Doxylamine, is currently marketed as an wbrp-okj-ycrcmwu sleeping pill. Ask your practitioner if creating a vitamin B6/Doxylamine combination with vrzk-kty-nwphwxj medications would be safe for you. Prescription [...] to help control my nausea and vomiting? [facility] has a helpful fact sheet on nausea in with recommendations. You can review it here: https://mothertobaby.org/fact-she ets/txsbxk-yklijnlq-nixtvzema-nvp /pdf/. Also, eating small meals often, drinking [...] . For more information, please see the [employer] fact sheet Paternal Exposures at https://mothertobaby.org/fact-she ets/wtpspgpp-grpfzzrbb-jguqnjipc/ pdf/. documented in this encounter [facility] 12-11-2024 Note HNO ID: [id number] Author: HUSEYIN OROURKE APRN.CNP Service: ? Author Type: Nurse Practitioner Type: Progress Notes Filed: 12/11/2024 13:11 Note Text: OGI VIRTUAL VISIT Virtual limitations reviewed with patient, as well as possible need to travel to have diagnostic services. Patient voiced understanding. Patient seen on [employer] Video Visit platform. Location of patient: [place] I have communicated my name and active licensure. The patient's identity and physical location were verified at the time of this visit. Either the patient or their legal customer service representative teacher has been informed of the risks and [...] visit or sooner as needed. Huseyin Orourke APRN.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 I spent a total of 20 minutes on the date of the service which included preparing to see the patient, nfoi-en-bedn patient care, completing clinical documentation, obtaining and/or reviewing separately obtained history, counseling and educating the patient/family/caregiver, and ordering medications, tests, or procedures. [facility] 12-11-2024 History of Present illness Narrative OGI VIRTUAL VISIT Virtual limitations reviewed with patient, as well as possible need to travel to have diagnostic services. Patient voiced understanding. Patient seen on [employer] Video Visit platform. Location of patient: [place] I have communicated my name and active licensure. The patient's identity and physical location were verified at the time of this visit. Either the patient or their legal customer service representative teacher has been informed of the risks and [...] which included preparing to see the patient, wxhl-fh-jcrj patient care, completing clinical documentation, obtaining and/or reviewing separately obtained history, counseling and educating the patient/family/caregiver, and ordering medications, tests, or procedures. documented in this encounter [facility] 12-04-2024 Telephone encounter Note Patient called and states she has not been able to keep anything down since Saturday AM. Patient denies any fever, diarrhea, cramping or bleeding. Advised patient to go to ER for IV hydration as is has been more than 24 hours since she has been able to keep anything down, patient is agreeable. [email or web address] message sent to patient with nausea/vomiting recommendations. Ananya Vaz RN [facility] 12-04-2024 Miscellaneous Notes Patient called and states she has not been able to keep anything down since Saturday AM. Patient denies any fever, diarrhea, cramping or bleeding. Advised patient to go to ER for IV hydration as is has been more than 24 hours since she has been able to keep anything down, patient is agreeable. [email or web address] message sent to patient with nausea/vomiting recommendations. Ananya Vaz RN Patient called she is about 6 weeks patient said she has been vomiting for 3 days she said she can't keep anything down Please advise documented in this encounter [facility] 12-04-2024 Telephone encounter Note Patient called she is about 6 weeks patient said she has been vomiting for 3 days she said she can't keep anything down Please advise [facility] Work Phone: Evaluation note Diagnosis Nausea/vomiting in - Primary Unspecified vomiting of , unspecified as to episode of care 7 weeks gestation of state, incidental [facility] Diagnosis Encounter for supervision of high [...] in first trimester documented in this encounter [facility] note* Diagnosis Encounter for supervision of high risk in first trimester, antepartum (HCC)- Primary 13 weeks gestation of (HCC) state, incidental Hypothyroidism affecting in first trimester (HCC) Nausea/vomiting in (HCC) Unspecified vomiting of , unspecified as to episode of care documented in this encounter [facility] note* Diagnosis Encounter for supervision of high risk in first trimester, antepartum (HCC)- Primary 13 weeks gestation of (HCC) state, incidental Hypothyroidism affecting in first trimester ([facility]) Encounter for anatomic survey ([facility])- Primary Encounter for anatomic survey 19 weeks gestation of ([facility]) state, incidental documented in this encounter [facility] note* Diagnosis Encounter for supervision of high risk in first trimester, antepartum (HCC)- Primary 13 weeks gestation of ([facility]) state, incidental Hypothyroidism affecting in first trimester ([facility]) Encounter for supervision of high risk in first trimester, antepartum (HCC)- Primary 19 weeks gestation of ([facility]) state, incidental Nausea/vomiting in ([facility]) Unspecified vomiting of , unspecified as to episode of care Hypothyroidism, unspecified type documented in this encounter [facility] noteNo assessment information availableKindred Hospital Work Phone: Evaluation note* Diagnosis Encounter for supervision of high risk in first trimester, antepartum (HCC)- Primary 13 weeks gestation of ([facility]) state, incidental Hypothyroidism affecting in first trimester ([facility]) Supervision of high risk in second trimester ([facility])- Primary Unspecified high-risk Hypothyroidism, unspecified type 23 weeks gestation of ([facility]) state, incidental Screening for diabetes mellitus Encounter for supervision of normal first in third trimester ([facility]) Supervision of normal first documented in this encounter [facility] note* Diagnosis Encounter for supervision of high risk in first trimester, antepartum (HCC)- Primary 13 weeks gestation of (HCC) state, incidental Hypothyroidism affecting in first trimester (HCC) Supervision of high risk in second trimester (HCC)- Primary Unspecified high-risk Nausea/vomiting in ([facility]) Unspecified vomiting of , unspecified as to episode of care Hypothyroidism, unspecified type Screening for diabetes mellitus 27 weeks gestation of ([facility]) state, incidental Lyme disease, unspecified documented in this encounter [facility] note* Diagnosis Encounter for supervision of high risk in first trimester, antepartum (HCC)- Primary 13 weeks gestation of (HCC) state, incidental Hypothyroidism affecting in first trimester (HCC) Anemia complicating , third trimester (HCC)- Primary documented in this encounter [facility] note* Diagnosis Encounter for supervision of high risk in first trimester, antepartum (HCC)- Primary 13 weeks gestation of ([facility]) state, incidental Hypothyroidism affecting in first trimester ([facility]) Nausea/vomiting in ([facility]) Unspecified vomiting of , unspecified as to episode of care documented in this encounter [facility] note* Diagnosis Encounter for supervision of high risk in first trimester, antepartum (HCC)- Primary 13 weeks gestation of ([facility]) state, incidental Hypothyroidism affecting in first trimester ([facility]) Supervision of high risk in third trimester ([facility])- Primary Unspecified high-risk 29 weeks gestation of ([facility]) state, incidental Anemia complicating , third trimester ([facility]) Hypothyroidism, unspecified type Lyme disease, unspecified documented in this encounter [facility] note* Diagnosis Encounter for supervision of high risk in first trimester, antepartum (HCC)- Primary 13 weeks gestation of ([facility]) state, incidental Hypothyroidism affecting in first trimester (HCC) Supervision of high risk in third trimester ([facility])- Primary Unspecified high-risk Anemia complicating , third trimester ([facility]) Hypothyroidism, unspecified type 31 weeks gestation of ([facility]) state, incidental Need for vaccination Need for prophylactic vaccination and inoculation against unspecified single disease Excessive growth affecting management of in third trimester, single or unspecified fetus ([facility]) documented in this encounter [facility] note* Diagnosis Encounter for supervision of high risk in first trimester, antepartum (HCC)- Primary 13 weeks gestation of (HCC) state, incidental Hypothyroidism affecting in first trimester (HCC) Hypothyroidism affecting in third trimester (HCC)- Primary Supervision of high risk in third trimester (HCC) Unspecified high-risk 29 weeks gestation of ([facility]) state, incidental Anemia complicating , third trimester (HCC) Hypothyroidism, unspecified type Lyme disease, unspecified documented in this encounter [facility] note* Diagnosis Encounter for supervision of high risk in first trimester, antepartum (HCC)- Primary 13 weeks gestation of (HCC) state, incidental Hypothyroidism affecting in first trimester (HCC) Maternal iron deficiency anemia complicating , third trimester (HCC)- Primary documented in this encounter [facility] note* Diagnosis Encounter for supervision of high risk in first trimester, antepartum (HCC)- Primary 13 weeks gestation of (HCC) state, incidental Hypothyroidism affecting in first trimester (HCC) Maternal iron deficiency anemia complicating , third trimester (HCC)- Primary documented in this encounter [facility] note* Diagnosis Encounter for supervision of high [...] third trimester (HCC) documented in this encounter [facility] note* Diagnosis Encounter for supervision of high [...] episode of care documented in this encounter [facility] note* Diagnosis Encounter for supervision of high [...] trimester (HCC)- Primary [facility] Diagnosis Encounter for supervision of high [...] trimester (HCC)- Primary [facility] Name Dates Details Patient Instructions Indication:BMI 23.0-23.9, adult Start:10-May-2021 Instruction Type:Provider Instructions for Treatment How to Access [employer] Online using Patient Portal and 3rd Alliance Party Apps Indication:BMI 23.0-23.9, adult Start:10-May-2021 Instruction Type:Patient Edu cation [facility]; [facility] Work Phone: reason for referral (narrative)No reason for referral information availableKindred Hospital Work Phone: Summary Purpose Family History No [...] Do you have a Healthcare Power of Hand Woven Carpet And Rug Mender? No December 04, 2024 11:11am Chief Complaint and Reason for Visit Chief Complaint Admit Date PRENANCY N/V December 04, 2024 9:42am TICK BITE/INNER THIGH/L LEG March 29 9:41am Additional Source Comments INFORMATION SOURCE (unrecogn ized section and content) DATE CREATED AUTHOR 11/25/2018 [facility] DATE CREATED AUTHOR AUTHOR'S ORGANIZ ATION 04/27/2020 [facility] ([place]) DATE CREATED AUTHOR AUTHOR'S ORGANIZ ATION 07/18/2025 [facility] DATE CREATED AUTHOR AUTHOR'S ORGANIZ ATION 07/24/2025 [facility] Source Comments (unrecognize d section and content) In the event this informatio n is protected by the Federal Confidentiality of Alcohol and Drug Abuse Patient Records regulations: The Federal rules restrict any use of the information to criminally investigate or prosecute any alcohol or drug abuse patient.[facility] the event this information is protected by the Federal Confidentiality of Alcohol and Drug Abuse Patient Records regulations: The Federal rules restrict any use of the information to criminally investigate or prosecute any alcohol or drug abuse patient.[facility] the event this information is protected by the Federal Confidentiality of Alcohol and Drug Abuse Patient Records regulations: The Federal rules restrict any use of the information to criminally investigate or prosecute any alcohol or drug abuse patient.[facility]In the event this information is protected by the Federal Confidentiality of Alcohol and Drug Abuse Patient Records regulations: The Federal rules restrict any use of the information to criminally investigate or prosecute any alcohol or drug abuse patient.[facility]In the event this information is protected by the Federal Confidentiality of Alcohol and Drug Abuse Patient Records regulations: The Federal rules restrict any use of the information to criminally investigate or prosecute any alcohol or drug abuse patient.[facility] the event this information is protected by the Federal Confidentiality of Alcohol and Drug Abuse Patient Records regulations: The Federal rules restrict any use of the information to criminally investigate or prosecute any alcohol or drug abuse patient.[facility] the event this information is protected by the Federal Confidentiality of Alcohol and Drug Abuse Patient Records regulations: The Federal rules restrict any use of the information to criminally investigate or prosecute any alcohol or drug abuse patient.[facility] the event this information is protected by the Federal Confidentiality of Alcohol and Drug Abuse Patient Records regulations: The Federal rules restrict any use of the information to criminally investigate or prosecute any alcohol or drug abuse patient.[facility] the event this information is protected by the Federal Confidentiality of Alcohol and Drug Abuse Patient Records regulations: The Federal rules restrict any use of the information to criminally investigate or prosecute any alcohol or drug abuse patient.[facility]In the event this information is protected by the Federal Confidentiality of Alcohol and Drug Abuse Patient Records regulations: The Federal rules restrict any use of the information to criminally investigate or prosecute any alcohol or drug abuse patient.[facility]In the event this information is protected by the Federal Confidentiality of Alcohol and Drug Abuse Patient Records regulations: The Federal rules restrict any use of the information to criminally investigate or prosecute any alcohol or drug abuse patient.[facility] the event this information is protected by the Federal Confidentiality of Alcohol and Drug Abuse Patient Records regulations: The Federal rules restrict any use of the information to criminally investigate or prosecute any alcohol or drug abuse patient.[facility] the event this information is protected by the Federal Confidentiality of Alcohol and Drug Abuse Patient Records regulations: The Federal rules restrict any use of the information to criminally investigate or prosecute any alcohol or drug abuse patient.[facility]In the event this information is protected by the Federal Confidentiality of Alcohol and Drug Abuse Patient Records regulations: The Federal rules restrict any use of the information to criminally investigate or prosecute any alcohol or drug abuse patient.[facility] the event this information is protected by the Federal Confidentiality of Alcohol and Drug Abuse Patient Records regulations: The Federal rules restrict any use of the information to criminally investigate or prosecute any alcohol or drug abuse patient.[facility] the event this information is protected by the Federal Confidentiality of Alcohol and Drug Abuse Patient Records regulations: The Federal rules restrict any use of the information to criminally investigate or prosecute any alcohol or drug abuse patient.[facility] the event this information is protected by the Federal Confidentiality of Alcohol and Drug Abuse Patient Records regulations: The Federal rules restrict any use of the information to criminally investigate or prosecute any alcohol or drug abuse patient.[facility]In the event this information is protected by the Federal Confidentiality of Alcohol and Drug Abuse Patient Records regulations: The Federal rules restrict any use of the information to criminally investigate or prosecute any alcohol or drug abuse patient.[facility]In the event this information is protected by the Federal Confidentiality of Alcohol and Drug Abuse Patient Records regulations: The Federal rules restrict any use of the information to criminally investigate or prosecute any alcohol or drug abuse patient.[facility]In the event this information is protected by the Federal Confidentiality of Alcohol and Drug Abuse Patient Records regulations: The Federal rules restrict any use of the information to criminally investigate or prosecute any alcohol or drug abuse patient.[facility] the event this information is protected by the Federal Confidentiality of Alcohol and Drug Abuse Patient Records regulations: The Federal rules restrict any use of the information to criminally investigate or prosecute any alcohol or drug abuse patient.[facility] the event this information is protected by the Federal Confidentiality of Alcohol and Drug Abuse Patient Records regulations: The Federal rules restrict any use of the information to criminally investigate or prosecute any alcohol or drug abuse patient.[facility]In the event this information is protected by the Federal Confidentiality of Alcohol and Drug Abuse Patient Records regulations: The Federal rules restrict any use of the information to criminally investigate or prosecute any alcohol or drug abuse patient.[facility] [place] Campus[facility] the event this information is protected by the Federal Confidentiality of Alcohol and Drug Abuse Patient Records regulations: The Federal rules restrict any use of the information to criminally investigate or prosecute any alcohol or drug abuse patient.[facility] the event this information is protected by the Federal Confidentiality of Alcohol and Drug Abuse Patient Records regulations: The Federal rules restrict any use of the information to criminally investigate or prosecute any alcohol or drug abuse patient.[facility] [place] [facility] Reason for Visit (unrecogniz ed section and content) Reason Comments US Specialty Diagnoses / Procedures Referred By Wesley t Referred To Contact [facility] Diagnoses Supervision of high risk in third trimester (HCC) 29 weeks gestation of (HCC) Anemia complicating , third trimester (HCC) Hypothyroidism, unspecified type Lyme disease, unspecified Procedures OBSTETRIC ULTRASOUND WHI US PREG UTERUS AFTER 1ST TRIMEST GESTATION Huseyin Orourke, NAUN.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 [address] [place] [address] Phone: tel: fax: [facility] [address] [place] [address] Referral ID Status Reason Start Date Expiration Date V isits Requested Visits Authorized [id number] Closed Auto-Generate d Referral 05/20/2025 05/20/2026 1 1 Reason Onset Date Comments Care 04/08/2025 Specialty Diagnoses / Procedures Referred By Contac t 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 Diagnoses Anything Medically Nessecary Procedures Anything Medically Nessecary Lucy Vargas MD [address] [place] [address] Phone: tel: fax:[phone] OB/Gynecology [address] [place] [address] Phone: tel: Referral ID Status Reason Start Date Expiration Date V isits Requested Visits Authorized [id number] Closed Financial Clearance Required - Self Pay Patient Cleared - Qualified for 501r 01/29/2025 04/29/2025 1 1 Reason Comments Patient Question vomiting for 3 days Reason Comments Nausea Specialty Diagnoses / Procedures Referred By Contac t 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 Diagnoses Virtual Office Visit Procedures Virtual Office Visit Kacy Garcia MD [address] [place] [place] [address] Phone: tel: fax:[phone] OB/Gynecology [address] [place] [address] Phone: tel: Referral ID Status Reason Start Date Expiration Date V isits Requested Visits Authorized [id number] Closed Financial Clearance Required - Self Pay Patient Cleared - Qualified for 501r 12/11/2024 03/11/2025 1 1 Reason Comments Appointment Reason Comments Initial OB Visit Specialty Diagnoses / Procedures [facility] Referred To Contact Diagnoses Procedures OB NEW PATIENT LEVEL 2 Self OB/Gynecology [address] [place] [address] Phone: tel: fax:[phone] Referral ID Status Reason Start Date Expiration Date V isits Requested Visits Authorized [id number] Closed Financial Clearance Required - Self Pay Patient Cleared - Qualified for 501r Referred for NATHANIEL Patient Cleared - True Self-Pay required payment collected 11/26/2024 02/24/2025 1 1 Reason Onset Date Comments Refill Request 03/07/2025 Specialty Diagnoses / Procedures Referred By Contac t 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 Diagnoses Anatomy Scan Procedures US PREG UTERUS W/DETAIL LUPILLO 1ST GESTATION Anatomy Scan [facility] [address] [place] [address] Phone: tel: OB/Gynecology [address] [place] [address] Phone: tel: Referral ID Status Reason Start Date Expiration Date V isits Requested Visits Authorized [id number] Closed Financial Clearance Required - Self Pay [...] , third trimester (HCC) Naomy Kowalski PA-C [address] [place] [address] Phone: tel: fax: Hematology/Oncology [address] [place] [address] Phone: tel: fax: Referral ID Status Reason Start Date Expiration Date V isits Requested Visits Authorized [id number] Authorized 06/11/2025 10/06/2025 1 99 Reason Onset [...] BE BASED ON THE PRIMARY CLINICAL RECORDS. [email or web address] provides no warranty or guarantee of the accuracy or completeness of information in this document.
[2025-07-26] MEDS: Lactated Ringers 1,000 ML 50 ML IV (07:50)
[2025-07-26 08:17] LABS: Hematocrit 36.7 % (37-47); Hemoglobin 11.8 g/dL (12.0-15.0); Immature Granulocytes Count 0.140 X10^3/uL (0.0-0.0); Mean Corp Hgb Conc 32.2 g/dL (32-36); Mean Corpuscular Volume 81.9 fL (81-99); Mean Platelet Vol. 10.4 fl (6.2-12.0); NRBC Flagged by Analyzer 0 % (0-5); POSITIVE MORPHOLOGY YES; Platelet Count 272 K/mm3 (150-450); RBC Distribution Width CV 20.1 % (11.6-14.6); RBC Distribution Width SD 58.9 fl (35.1-43.9); Red Blood Count 4.48 M/mm3 (4.2-5.4); White Blood Count 10.7 K/mm3 (4.4-11.0)
[2025-07-26] MEDS: 0.9% Normal Saline Single 100 ML IV.SOLN. INTRA-UTER (08:27)
[2025-07-26] MEDS: Oxytocin 15 Units/NS 250ml 15 UNITS/250 ML IV.SOLN 2 UNITS IV (08:59)
[2025-07-26 09:21] LABS: Syphilis Antibodies Nonreactive (Nonreactive)
[2025-07-26 09:47] LABS: Differential Indicated SCAN CRITERIA MET
[2025-07-26 09:51] LABS: Red Cell Morphology NORM C+C NORMAL (NORM C&C)
[2025-07-26] MEDS: Lactated Ringers 1,000 ML 999 ML IV ×2 (12:28→14:36)
[2025-07-26] MEDS: fentaNYL-bupivacaine (epidural) 100 ML BAG EPIDURAL ×3 (13:01→22:27)
--- NOTE | 2025-07-26 13:06 | PCM.HP.OB ---
HPI - General General Date of Admission: 07/26/25 Date of Service: 07/26/25 Chief Complaint: elective IOL HPI Narrative HILARY GONZALEZ, is a 29 F who presents for scheduled elective IOL. PFSH PFSH Medical History (Updated 07/26/25 @ 13:[address] Karolyn Miles, DO) Vitamin deficiency Thyroid disease Hormone deficiency Bone fracture Back problem Depression Anxiety Home Medications ?Medication ?Instructions ?Recorded ?Last Taken ?Type ondansetron 4 mg disintegrating 4 mg PO Q6H PRN nausea and 12/04/24 Unknown Rx tablet vomiting #20 tabs Allergy/AdvReac Type Severity Reaction Status Date / Time No Known Allergies Allergy Verified 03/29/25 10:00 Family History Unknown Arthritis Cancer Diabetes Heart disease Hypertension High cholesterol Hormone Problems Hyperthyroidism Hypothyroid Kidney disease Thyroid cancer Social History Smoking Status: Never smoker alcohol intake: never substance use type: does not use History Elective abortions Hx Para 1 Spontaneous abortions Hx # Term Pregnancies Ectopic pregnancies Hx # Pregnancies Multiple births # of living children NST FHR Rate Baby A FHR Category:: Category I Vital Signs Vital Signs Vital Signs: 07/26/25 07:18 07/26/25 07:18 07/26/25 08:57 Temperature Temperature Source Pulse Rate 105 H Respiratory Rate Blood Pressure 132/86 H 122/71 H BP Systolic 132 122 BP Diastolic 86 71 Pulse Ox 07/26/25 08:57 07/26/25 08:58 07/26/25 08:58 Temperature Temperature Source Pulse Rate 96 98 Respiratory Rate Blood Pressure BP Systolic BP Diastolic Pulse Ox 98 07/26/25 09:17 07/26/25 09:17 07/26/25 09:22 Temperature Temperature Source Pulse Rate 113 H 118 H Respiratory Rate Blood Pressure BP Systolic BP Diastolic Pulse Ox 100 07/26/25 09:22 07/26/25 09:27 07/26/25 09:27 Temperature Temperature Source Pulse Rate 119 H Respiratory Rate Blood Pressure BP Systolic BP Diastolic Pulse Ox 99 99 07/26/25 09:58 07/26/25 09:58 07/26/25 11:00 Temperature Temperature Source Temporal Pulse Rate 102 H Respiratory Rate Blood Pressure 129/79 H BP Systolic 129 BP Diastolic 79 Pulse Ox 07/26/25 11:00 07/26/25 11:00 07/26/25 11:05 Temperature 98.0 F Temperature Source Pulse Rate Respiratory Rate 16 Blood Pressure 116/60 BP Systolic 116 BP Diastolic 60 Pulse Ox 07/26/25 11:05 07/26/25 11:05 07/26/25 12:43 Temperature Temperature Source Pulse Rate 92 Respiratory Rate Blood Pressure 128/80 H BP Systolic 128 BP Diastolic 80 Pulse Ox 99 07/26/25 12:43 07/26/25 12:43 07/26/25 12:43 Temperature Temperature Source Temporal Pulse Rate 95 96 Respiratory Rate Blood Pressure BP Systolic BP Diastolic Pulse Ox 07/26/25 12:43 07/26/25 12:43 07/26/25 12:43 Temperature 98.0 F Temperature Source Pulse Rate Respiratory Rate 16 Blood Pressure BP Systolic BP Diastolic Pulse Ox 100 07/26/25 12:48 07/26/25 12:48 07/26/25 12:48 Temperature Temperature Source Pulse Rate 104 H Respiratory Rate Blood Pressure 131/76 H BP Systolic 131 BP Diastolic 76 Pulse Ox 100 07/26/25 12:53 07/26/25 12:53 07/26/25 12:55 Temperature Temperature Source Pulse Rate 98 Respiratory Rate Blood Pressure 133/75 H BP Systolic 133 BP Diastolic 75 Pulse Ox 99 07/26/25 12:55 07/26/25 12:59 07/26/25 12:59 Temperature Temperature Source Pulse Rate 97 92 Respiratory Rate Blood Pressure 113/65 BP Systolic 113 BP Diastolic 65 Pulse Ox 07/26/25 13:04 07/26/25 13:04 Temperature Temperature Source Pulse Rate 111 H Respiratory Rate Blood Pressure 113/59 L BP Systolic 113 BP Diastolic 59 Pulse Ox Weight Weight: 175 lb Body Mass Index (BMI) 30.9 Labs Labs Labs: Blood Type O POSITIVE Antibody Screen NEGATIVE Hct, (37-47) 36.7 % L Hgb, (12.0-15.0) 11.8 g/dL L Syphilis Total Ab, (Nonreactive) Nonreactive Assessment & Plan (1) 39 weeks gestation of : (2) Elective induction of labor planned: PLAN: Cvx /-2, vertex. Intracervical harp placed in usual fashion and filled with 30 cc saline. Pelvis adequate and EFW < 4500 grams. GBS negative. Pitocin per protocol. Epidural PRN. (3) Hypothyroidism affecting : (4) Anemia affecting : (5) History of depression:
[2025-07-26] MEDS: Lactated Ringers 1,000 ML 200 ML IV ×2 (19:12→23:55)
--- NOTE | 2025-07-26 20:57 | PN.OBGYN_ITS ---
Subjective Subjective Delayed entry. Pt comfortable with epidural. Objective Data Objective Data Vital Signs: Vital Signs Temp Pulse Resp BP Pulse Ox 97.8 F 103 H 18 108/56 L 100 07/26/25 20:34 07/26/25 20:34 07/26/25 20:34 07/26/25 20:34 07/26/25 20:34 Weight: 175 lb Body Mass Index (BMI) 30.9 Intake & Output: Intake and Output for Last 24 Hours 07/24/25 07/25/25 07/26/25 23:59 23:59 23:59 Intake Total 3553.10 / 3553.10 Output Total 1300 / 1300 Balance 2253.10 / 2253.10 Lab / Micro Data 07/26/25 07:50 Labs: Laboratory Results - last 24 hr 07/26/25 07:50: WBC 10.7, RBC 4.48, Hgb 11.8 L, Hct 36.7 L, MCV 81.9, MCH 26.3 L , MCHC 32.2, RDW Std Deviation 58.9 H, RDW Coeff of Katie 20.1 H, Plt Count 272, MPV 10.4, Immature Gran % (Auto) 1.300 H, Neut % (Auto) 74.9 H, Lymph % (Auto) 15.7 L, Franklin % (Auto) 6.9, Eos % (Auto) 0.7, Baso % (Auto) 0.5, Absolute Neuts (auto) 8.0 H, Absolute Lymphs (auto) 1.68, Nucleated RBC % 0, RBC Morphology NORM C+C, Syphilis Total Ab Nonreactive, Blood Type O POSITIVE, Antibody Screen NEGATIVE Assessment & Plan (1) History of depression: (2) Anemia affecting : (3) Hypothyroidism affecting : (4) Elective induction of labor planned: PLAN: Delayed entry. Cvx 3/-2, head well applied and AROM performed around noon in usual fashion with return of a large amount of fluid. (5) 39 weeks gestation of :
[2025-07-27] VITALS (50 sets, daily range): BP systolic 95–144; BP diastolic 54–79; PULSE 90–148; RESP 14–18; TEMP 36.6–37.3; O2SAT 88–99
[2025-07-27] MEDS: Oxytocin 15 Units/NS 250ml 15 UNITS/250 ML IV.SOLN 20 UNITS IV (02:40)
[2025-07-27] MEDS: fentaNYL-bupivacaine (epidural) 100 ML BAG EPIDURAL (02:46)
[2025-07-27] MEDS: Lactated Ringers 1,000 ML 200 ML IV (04:58)
--- NOTE | 2025-07-27 06:58 | EX.PCM.OBVAG ---
Assessment & Plan (1) Vaginal delivery: (2) Shoulder dystocia during labor and delivery: Vaginal Delivery Maternal Presentation Maternal Presentation: Elective Induction Type of Induction: Pitocin, Nance Bulb and Amniotomy Vaginal Delivery Information Procedure Performed: Spontaneous Vaginal Delivery Surgeon/Practitioner: Karolyn Miles Date of Procedure: 07/27/25 Pre-Procedure Diagnosis: 39 week gestation, elective IOL, accelerate growth Post-Procedure Diagnosis: As above Type of anesthesia: Epidural Estimated Blood Loss: 100 mL Findings Description of procedure: Patient was complete and pushing. The head of the was delivered in ABE position. A loose nuchal cord x 1 was reduced. There was a delay in the delivery of the anterior shoulder. The patient was placed in McRobert's position and supra pubic pressure was given. Next the Harp maneuver was performed, and the anterior shoulder was delivered. The shoulders and body were delivered without excessive traction or force. A VMI was delivered and placed on maternal abdomen. The shoulder dystocia was 54 seconds total. The cord was clamped and cut immediately and the infant was taken to the warmer for care by the awaiting nursery staff. Cord blood and cord gases were obtained. The placenta delivered spontaneously and was noted to be normal appearing and intact. The uterus was boggy. Pitocin was running. The uterus was explored x 1, and manual uterine massage performed. Metherine x 1 was given. The uterus was then firm and bleeding minimal. No lacerations noted. Superficial abrasions noted over bilateral labia minora. A vaginal sweep was performed. Sponge counts were correct. Procedure findings: Terminal meconium 54 second shoulder dystocia Presentation: Vertex Amniotic Membrane Rupture Type: Artificial Amniotic Fluid Description: Clear and Other (terminal meconium noted at time of delivery) Placental Delivery Description: Spontaneous Cord Vessel Description: 3 Vessels Cord Entanglement: Around neck x 1, loose Nuchal Cord Compression: Without compression Cord Gases: ABG and VBG A Gender: Male Delayed Cord Clamping: No Post Vaginal Deli Medications given after delivery: IV Pitocin and IM Methergin Episiotomy Description: None Laceration: None Complication Complications: No
[2025-07-27] MEDS: Oxytocin 15 Units/NS 250ml 15 UNITS/250 ML IV.SOLN 83 UNITS IV (07:30)
[2025-07-27] MEDS: 0.9% Saline Lock 10 ML Syringe IV (10:27)
[2025-07-28] VITALS (9 sets, daily range): BP systolic 101–126; BP diastolic 54–72; PULSE 79–93; RESP 14–16; TEMP 36.4–36.7; O2SAT 97–99
--- NOTE | 2025-07-28 08:47 | PCM.PN.OB ---
Subjective Subjective Doing well. Ambulating and voiding without difficulty. Mild lochia. Breast feeding. Objective Data Objective Data Vital Signs: Vital Signs Temp Pulse Resp BP Pulse Ox O2 Del Method 97.6 F L 79 16 109/65 98 Room Air 07/28/25 08:09 07/28/25 08:10 07/28/25 08:09 07/28/25 08:10 07/28/25 08:09 07/28/25 08:09 Oxygen Delivery Method Room Air Weight: 79.379 kg Body Mass Index (BMI) 30.9 Intake & Output: Intake and Output for Last 24 Hours 07/26/25 07/27/25 07/28/25 23:59 23:59 23:59 Intake Total 4541.33 / 4541.33 1876.00 / 1876.00 Output Total 2100 / 2100 1300 / 1300 Balance 2441.33 / 2441.33 576.00 / 576.00 Lab / Micro Data 07/26/25 07:50 Physical Exam Const alert and no apparent distress Narrative: Fundus firm, below umbilicus. Assessment & Plan (1) Shoulder dystocia during labor and delivery: (2) Vaginal delivery: PLAN: Plan Discharge home
--- NOTE | 2025-07-28 08:47 | PCM.DC.SUM ---
Providers Date of Admission: 07/26/25 Date of Discharge: 07/28/25 Primary Care Physician: Susana Primary Care Phys Reason For Visit: LABOR & DELIVERY / VAGINAL DELIVERY Diagnosis Discharge Diagnosis (1) Shoulder dystocia during labor and delivery: Status: Acute Code(s): O66.0 - Obstructed labor due to shoulder dystocia (2) Vaginal delivery: Status: Acute Code(s): O80 - Encounter for full-term uncomplicated delivery Plan Discharge home Hospital Course Operations None Procedures None Summary of Care Provided Minutes Spent on Discharge: 20 Hospital Course: Vaginal delivery. No complications Physical Exam Const alert and no apparent distress Narrative: Fundus firm, below umbilicus. Weight / BMI Weight Weight: 79.379 kg Body Mass Index (BMI) 30.9 ABG / Lab / Microbiology Data 07/26/25 07:50 D/C Instructions May resume sexual activity in: 6 weeks DC O2, CPAP, BIPAP Needs Home O2 Discharge instructions: No Please Follow Up With: Lorin Blair MD When: Follow up with our office in 1-2 and 6 weeks or as needed. [phone] Meaningful Use Info Meaningful Use Meaningful Use Diagnoses (Choose all that apply): None applicable Discharge Plan Admission Admit Date/Time: 07/26/25 07:32 Primary Reason for Your Visit: vaginal delivery Attending Provider: Karolyn Miles Primary Care Provider: Care Physician,Susana Primary Discharge Orders/Prescriptions Prescriptions: Discontinued ondansetron 4 mg tablet,disintegrating 4 mg PO Q6H PRN (Reason: nausea and vomiting) Qty: 20 0RF Referrals / Follow Up: Care Physician,No Primary [Primary Care Provider, Medical] Disposition Disposition (needs filled in before D/C Order can be placed): Home, Self Care
--- NOTE | 2025-07-28 11:42 | CASEMGMT ---
Social Work Assessment Labor and Delivery Unit Patient Address: [id number] [place] [address] [address] [place] [address] Phone number: [phone] Date of Referral: 07/27/25 Time of Referral:? 330 Referred By: Karolyn Miles Date of Intervention: ??07/28/25 Time of Intervention:? 929 Reason for Referral:? history of depression Sw completed chart review and acknowledges social work consult due to maternal history of depression. Sw presented to bedside and introduced self to mother of baby, MOB- Norma and father of baby, FOB- Delio Grimaldo. Sw explained reason for sw involvement and completed psychosocial assessment. History obtained from: medical records, MOB and FOB Household composition: Currently residing in the family home is MOB, FOB, AAKASH's 12 year old daughter- Cherie and baby when medically ready for discharge. Parents report their home is safe and secure, denying any problems. Patient's parent/guardian status:? AAKASH states that she and SOFIA were introduced to each other by family members who are friends with each other, they have been together or 3 years. [place] baby is their first baby together. No problems reported of domestic violence or intimate partner violence. ? Medical History: ?AAKASH is 29 year old female who is 2, para 1- now 2 following labor and delivery of . AAKASH received routine care during with [facility]. AAKASH presented to hospital for induction of labor and delivered baby via vaginal delivery on 07/27/25 at 39 weeks gestation. Baby boy, named Christopher Maria, was born weighing 8lb 11oz and had apgars of 7 and 9 at one and five minutes of life, respectfully. AAKASH reports that she is breast feeding and baby will be followed by Dr. Garcia for pediatrics. Educational Status:? MOB completed high school and FOB completed 8th grade as is common in the [facility] community. Parents deny any problems with reading, learning or comprehension. Financial Status: Both parents are employed outside of the home. 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 Supplies:??All necessary baby supplies obtained, including: car seat, safe sleep space, clothes, diapers and wipes. Childcare/Caregiver(s):?MOB states that she will be the primary caregiver to baby, along with FOB when he is not working. Transportation:?? Both parents have their drivers license and reliable means of transportation. No barriers Programs/Agencies Involved: ???AAKASH has insurance through [employer] and is connected to WIC. Children Services/Legal Issues:??? No prior involvement with Children Services, no issues or concerns warranting referral to be made at this time. Behavioral Health Issues: ??Mental Health History:?SOFIA denies mental health history. AAKASH admits to struggling with her mental health after her daughter was born. Reporting that she was diagnosed with depression. AAKASH states that she got when she was 17 years old, just two months before she was supposed to go to college. AAKASH states that the father of her daughter wanted her to have an , and her parents wrote her off and said that they did not want to be a part of her life any more. MOB states that she felt isolated and alone. AAKASH states that after her baby was born, she and her daughters father moved to [place] and were living away from any one who was a support to her- which was already limited. AAKASH states that she got connected to a counselor who helped her get connected to a hindu for additional supports, and that really helped her. AAKASH denies being prescribed medication at that time, or currently. MOB states that at this time she is not connected to any mental health services or supports. ?Substance Use History: Parents deny substance use prior to and during . Family History:?Parents deny family history of addiction or significant mental health diagnoses. ?Drug Screens: ??No drug screens observed while completing chart review. Family/Social Stressors:? AAKASH and SOFIA deny any issues, concerns or stressors at this time. Support Systems: AAKASH states that SOFIA, her mom and SOFIA's family are their biggest supports. Depression/Shaken Baby/Safe Sleeping:? [place] educated parents on signs and symptoms of baby blues and mood and anxiety disorders to be mindful. [place] explained to AAKASH that she is more at risk due to her mental health history. AAKASH states that she is also in a totally different position now than when she had her daughter 12 years ago. AAKASH reports that her relationship with SOFIA is much healthier and he is a support to her, opposed to her other partner who was not a support to her. AAKASH states that her mom is also now a supportive person in her life and her daughter's life, which is different from when she had her daughter 12 years ago. FOB states that if MOB were to struggle he would be able to recognize that and would know how to help and support her. MOB states that if she were to struggle with her mental health, she would feel comfortable talking to him about that. Currently, MOB states that since baby has been born she feels great, denying feeling down, sad, anxious or tearful. Sw educated parents on shaken baby prevention and ABCs of safe sleep. Parents express understanding. ASSESSMENT:? MOB and baby admitted following labor and delivery of . MOB with mental health history positive for depression. MOB states that she is in a different position in her life now than where she was 12 years ago when she had her daughter. MOB states that the changes to her life are so much more positive and she is so happy that baby is here. MOB states that she has so many more supports in her life, the biggest one being FOB, who she is excited to parent with. MOB and FOB both express an understanding of what symptoms to be on the lookout for. MOB was observed sitting comfortably on the bed while FOB was sitting comfortably on the couch. MOB was caring for briefly before he left for his circumcision. MOB and FOB both talked openly with sw during completion of assessment. MOB appeared to be more open and communicative, FOB appeared more reserved and only talked when asked questions directly to him. Parents report to having all baby items and have a lot of family support in place. PLAN:? No other services requested or indicated. MOB and baby to be discharged when medically ready. Parents were provided literature regarding: signs and symptoms of baby blues and mood and anxiety disorders, Help Me Grow, shaken baby prevention, ABCs of safe sleep and a list of county resources that are available for them should any needs present themselves. Jewell Borges, HELIUM ARC WELDER, AIRPORT TRAFFIC CONTROLLER
--- NOTE | 2025-08-02 15:00 | NURSING ---
08/02/2025- @1500 called for follow up phone call, [facility]
== END 2025-07-28 13:30 | disposition home or self-care (01) | DRG 560 ==
PROVIDERS: Obstetrics & Gynecology; Admitting Provider Obstetrics & Gynecology; Referring Provider Obstetrics & Gynecology; Visit Provider Obstetrics & Gynecology
DX: O99.284 Endocrine, nutritional and metabolic diseases complicating childbirth (principal); Z37.0 Single live birth; E03.9 Hypothyroidism, unspecified; S30.814A Abrasion of vagina and vulva, initial encounter; O71.82 Other specified trauma to perineum and vulva; Z3A.39 39 weeks gestation of pregnancy; O99.02 Anemia complicating childbirth; O66.0 Obstructed labor due to shoulder dystocia; O69.81X0 Labor and delivery complicated by cord around neck, without compression, not applicable or unspecified; O77.0 Labor and delivery complicated by meconium in amniotic fluid; Z86.59 Personal history of other mental and behavioral disorders
CPT/HCPCS: 59025; 59050; 85025; 86780; 86850; 86900; 86901; 99221; A4216; G0378; J2405